=== PATIENT | female | born 1935 | race Caucasian/White ===

== ENCOUNTER 2018-10-04 08:51 | Inpatient (IN) | payer MEDICARE ==
[~2018-10-04] VITALS: Ht 160 cm; Wt 67.8 kg
[2018-10-04 13:40] VITALS: BP 140/82
--- NOTE | 2018-10-04 13:40 | NUR ---
AMADOU SAUL admitted to room 225-1, with an admitting diagnosis of REVISION OF LEFT TOTAL HIP BY DR. LI AT [facility], on 10/04/18 from [facility] via , accompanied by FAMILY. YURIANAAMADOU introduced to surroundings, call light, bed controls, phone, TV, temperature control, lights, meal times, smoking policy, visitor policy, side rail policy, bathrooms and showers. Patient Rights given to patient in the handbook. YURIANAAMADOU Dixon verbalizes understanding that [facility] is not responsible for the loss or damage to any personal effects or valuables that are kept in the patients posession during their hospitalization. The following Patient Care Plans were discussed with the PT: Discharge Planning AND IMMOBILITY. YURIANAAMADOU Dixon verbalizes understanding of Interdisciplinary Patient Education. Patient received Patient Rights Booklet, which includes Privacy Act Statement and Data Collection Information Summary. DENIES PAIN PRESENTLY. [employer] DRESSING DRY/INTACT LEFT HIP. DAUGHTER AT BEDSIDE. WHEN REPORT WAS GIVEN TO THIS NURSE, IT WAS REPORTED THAT PATIENT WAS UP AD CAROLINE. PATIENT HAD GONE HOME TO SHOWER PRIOR TO COMING TO [facility].
[2018-10-04] MEDS ORDERED: MELO-170 PO (14:04)
[2018-10-04] MEDS ORDERED: SIMV40TA4 PO (14:04)
[2018-10-04] MEDS ORDERED: POLY17PO6 PO (14:04)
[2018-10-04] MEDS ORDERED: TRAM50TA2 PO (14:04)
[2018-10-04] MEDS ORDERED: ATEN25TA PO (14:04)
[2018-10-04] MEDS ORDERED: ASPI-983 PO (14:04)
[2018-10-04] MEDS ORDERED: PANT40TA2 PO (14:04)
[2018-10-04] MEDS ORDERED: ALEN70TA5 PO (14:04)
[2018-10-04] MEDS ORDERED: ACET-2267 PO (14:05)
--- NOTE | 2018-10-04 14:06 | NUR ---
UPDATED MED REC WITH DISCHARGE INSTRUCTIONS FROM [facility]. THE FOLLOWING CHANGES WERE MADE AT THAT DISCHARGE: START TAKING: MOBIC 7.5MG BID TRAMADOL 50MG 50-100MG Q6H PRN PROTONIX 40MG DAILY I WILL UPDATE THE MED REC TO THE LIST OF MEDICATIONS THE PATIENT WAS TAKING AT HOME PRIOR TO THIS DISCHARGE AT A LATER DATE FOR PROPER DISCHARGE TO HOME ORDERS. Addendum: 10/07/18 at 0826 by [facility] D[facility] UPDATED MED REC TO THE LIST OF MEDICATIONS THE PATIENT WAS TAKING PRIOR TO DISCHARGE FROM [facility]. I REMOVED THE THREE NEW SCRIPTS= TRAMADOL, MOBIC, AND PROTONIX. I VERIFIED THE 3 PRESCRIPTIONS WITH THE EXT MED HX AND LEFT THE OTC CONTINUED MEDS: ASPIRIN, MIRALAX, AND TYLENOL.
--- NOTE | 2018-10-04 14:53 | Physical Therapy Evaluation ---
PT Evaluation-General Medical Diagnosis Admission Date Oct 04, 2018 at 13:37 Medical Diagnosis: left hip revision Onset Date: Oct 02, 2018 Therapy Diagnosis Therapy Diagnosis: debility/weakness Precautions Precautions/Isolations: Standard Precautions Weight Bear Status Right Lower Extremity: Right Full Weight Bearing Left Lower Extremity: Left Full Weight Bearing Referral Physician: Arlyn Reason for Referral: Evaluation/Treatment Medical History Pertinent Medical History: Arthritis Additional Medical History bilateral TKR/left THR/left TSR Current History s/p left hip revision Reviewed History: Yes Social History Home: Single Level Entry Into Home: Ramp Prior/Core FIM Prior Level of Function Therapy Code Descriptions/Definitions Functional [place] Measure: 0=Not Assessed/NA 4=Minimal Assistance 1=Total Assistance 5=Supervision or Setup 2=Maximal Assistance 6=Modified [place] 3=Moderate Assistance 7=Complete [place] Therapy Quality Codes: 6 Independent with activity with or without an assistive device 5 Patient requires set up or clean up by helper. Patient completes activity by themselves 4 Supervision or touching assist (CGA). [place] provide cues , steadying assist 3 The helper provides less than half the effort to complete the activity 2 The helper provides more than half the effort to complete the activity 1 Dependent. The helper does all the effort to complete an activity 7 Patient refused to complete or attempt activity 9 The patient did not perform the activity before the current illness or injury 88 Not attempted due to Medical conditions or safety concerns Functional Abilities and Goals: Independent: Patient completed the activities by him/herself, with or without an assistive device, with no assistance from a helper. Needed Some Help: Patient needed partial assistance from another person to complete activities. Dependent: A helper completed the activities for the patient. Unknown: Not Applicable: Bed Mobility: 7 Transfers (B,C,W/C) (FIM): 7 Gait: 7 Stairs: 7 Indoor Mobility (Ambulation): Independent Stairs: Independent Prior Devices Use: None PT Evaluation-Current Subjective Patient agrees to PT. No c/o Pain Numeric Pain Scale: 2 Location: Left Location Body Site: Hip Pain Description: Ache Objective Patient Orientation: Normal For Age Problem Solving: Good ROM/Strength ROM Lower Extremities left hip protocol/right LE WFL Strenght Lower Extremities 4-/5 grossly left LE/right LE 4+/5 grossly Integumentary/Posture Integumentary refer to nursing notes Bowel Incontinence: No Bladder Incontinence: No Posture WFL Neuromuscular (Tone, Coordination, Reflexes) grossly intact Sensory Vision: Wears Glasses Hearing: Hearing Aid/Aides Sensation Right Lower Extremit: Intact Sensation Left Lower Extremity: Intact Transfers Therapy Code Descriptions/Definitions Functional [place] Measure: 0=Not Assessed/NA 4=Minimal Assistance 1=Total Assistance 5=Supervision or Setup 2=Maximal Assistance 6=Modified [place] 3=Moderate Assistance 7=Complete [place] Therapy Quality Codes: 6 Independent with activity with or without an assistive device 5 Patient requires set up or clean up by helper. Patient completes activity by themselves 4 Supervision or touching assist (CGA). Kopperl provide cues , steadying assist 3 The helper provides less than half the effort to complete the activity 2 The helper provides more than half the effort to complete the activity 1 Dependent. The helper does all the effort to complete an activity 7 Patient refused to complete or attempt activity 9 The patient did not perform the activity before the current illness or injury 88 Not attempted due to Medical conditions or safety concerns Transfers (B, C, W/C) (FIM): 6 Scootin Rollin Roll Left to Right (QC): 6 Supine to/from Sit: 6 Sit to/from Stand: 6 Sit to Lying (QC): 6 Lying to Sitting/Side of Bed(Q: 6 Sit to Stand (QC): 6 Chair/Suo-gz-Fzixs Xfer(QC): 6 Car Transfer (QC): 6 Gait Does the Patient Walk?: Yes Mode of Locomotion: Walk Anticipated Mode of Locomotion: Walk Gait (FIM): 6 Distance (FIM): 3=150 ft Walk 10 feet (QC): 6 Walk 50 ft with 2 Turns(QC): 6 Walk 150 ft (QC): 6 Walking 10ft/uneven surface-QC: 6 Distance: >800' Gait Level of Assist: 6 Gait Assistive Device: FWW Comments/Gait Description steady, reciprocal pattern/slightly antalgic Stairs Stairs (FIM): 6 #of Steps: 12 Level of Assist: 6 1 Step (curb) (QC): 6 4 Steps (QC): 6 12 Steps (QC): 6 Balance Sitting Static: Normal Sitting Dynamic: Normal Standing Static: Normal Standing Dynamic: Normal Treatment NuStep x 20 min WL 3 to increase strength and mobility Assessment/Needs 82 y.o. female, is currently at [facility] with all gross motor skills. PT to address functional mobility and strength per physician order. Rehab Potential: Good PT Hardware Installer Goals Hardware Installer Goals PT Skilled Nursing Goals Time Frame: Oct 11, 2018 Transfers (B,C,W/C) (FIM): 6 Sit to Lying (QC): 6 Lying-Sitting on Side/Bed(QC): 6 Sit to Stand (QC): 6 Rollin Roll Left to Right (QC): 6 Chair/Icf-ai-Aswrk Xfer(QC): 6 Car Transfer (QC): 6 Does the Patient Walk: Yes Gait (FIM): 6 Gait distance (FIM): 3=150 ft Distance: >200' Walk 10 feet (QC): 6 Walk 10ft-Uneven Surface(QC): 6 Walk 50ft with 2 Turns (QC): 6 Walk 150 ft (QC): 6 Gait Level of Assist: 6 Gait Assistive Device: FWW Stairs (FIM): 6 # of Steps: 12 1 Step (curb) (QC): 6 4 Steps (QC): 6 12 Steps (QC): 6 Stairs Level Of Assist: 6 PT Plan Treatment/Plan Treatment Plan: Continue Plan of Care Treatment Plan: Education, Functional Activity Ney, Functional Strength, Gait, Safety, Therapeutic Exercise, Transfers Treatment Duration: Oct 11, 2018 Frequency: At least 5 of 7 days/Wk (IRF) Estimated Hrs Per Day: 1.5 hours per day Patient and/or Family Agrees t: Yes Discharge Recommendations Therapy D/C Recommendations: Home Independently Time/GCodes Time In: 1340 Time Out: 1415 Total Billed Treatment Time: 35 Total Billed Treatment 1 visit EVModC 15 min EX 20 min OG MENDOZA PT Oct 04, 2018 14:53
--- NOTE | 2018-10-04 15:11 | Physical Therapy Daily Note ---
PT Daily Note-Current Subjective Patient in therapy gym pre tx, agrees to PT, has 5/10 pain in left hip. Appearance Patient in recliner in room post tx with nurse call, phone, tray, all needs met. Mental Status Patient Orientation: Person, Place, Situation Transfers Therapy Code Descriptions/Definitions Functional [place] Measure: 0=Not Assessed/NA 4=Minimal Assistance 1=Total Assistance 5=Supervision or Setup 2=Maximal Assistance 6=Modified [place] 3=Moderate Assistance 7=Complete [place] Therapy Quality Codes: 6 Independent with activity with or without an assistive device 5 Patient requires set up or clean up by helper. Patient completes activity by themselves 4 Supervision or touching assist (CGA). [place] provide cues , steadying assist 3 The helper provides less than half the effort to complete the activity 2 The helper provides more than half the effort to complete the activity 1 Dependent. The helper does all the effort to complete an activity 7 Patient refused to complete or attempt activity 9 The patient did not perform the activity before the current illness or injury 88 Not attempted due to Medical conditions or safety concerns Transfers (B, C, W/C) (FIM): 6 Sit to/from Stand: 6 Bed to/from Chair: 6 Weight Bearing Right Lower Extremity: Right Full Weight Bearing Left Lower Extremity: Left Full Weight Bearing Gait Training Gait (FIM): 6 Distance: 150' Gait Level of Assist: 6 Gait Assistive Device: FWW slow but steady ambulation Exercises Supine Ex: Ankle pumps, Quad Set, Glut sets, Heel Slides, Short Arc Quads, Hip abd/add Supine Reps: 20 Seated Therapy Exercises: Hip abd/add (with pillow and RTB) Seated Reps: 20 LAQ alternating for 5 min Treatments LE exercise, ambulation Assessment Current Status: Fair Progress good general mobility PT Mcfp Goals Summer Camp Counselor Goals PT Summer Camp Counselor Goals Time Frame: Oct 11, 2018 Transfers (B,C,W/C) (FIM): 6 Sit to Lying (QC): 6 Lying-Sitting on Side/Bed(QC): 6 Sit to Stand (QC): 6 Rollin Roll Left to Right (QC): 6 Chair/Jnz-ja-Npwyz Xfer(QC): 6 Car Transfer (QC): 6 Does the Patient Walk: Yes Gait (FIM): 6 Gait distance (FIM): 3=150 ft Distance: >200' Walk 10 feet (QC): 6 Walk 10ft-Uneven Surface(QC): 6 Walk 50ft with 2 Turns (QC): 6 Walk 150 ft (QC): 6 Gait Level of Assist: 6 Gait Assistive Device: FWW Stairs (FIM): 6 # of Steps: 12 1 Step (curb) (QC): 6 4 Steps (QC): 6 12 Steps (QC): 6 Stairs Level Of Assist: 6 PT Plan Problem List Problem List: Activity Tolerance, Functional Strength, Safety, Balance, Gait, Transfer, ROM Treatment/Plan Treatment Plan: Continue Plan of Care Treatment Plan: Education, Functional Activity Ney, Functional Strength, Gai t, Safety, Therapeutic Exercise, Transfers Treatment Duration: Oct 11, 2018 Frequency: At least 5 of 7 days/Wk (IRF) Estimated Hrs Per Day: 1.5 hours per day Patient and/or Family Agrees t: Yes Safety Risks/Education Patient Education: Gait Training, Transfer Techniques, Reviewed Precautions, Correct Positioning, Safety Issues Teaching Recipient: Patient Teaching Methods: Demonstration, Discussion Response to Teaching: Reinforcement Needed Time/GCodes Time In: 1415 Time Out: 1440 Total Billed Treatment Time: 25 Total Billed Treatment 1 visit EX 25' JIM BOLANOS PT Oct 04, 2018 15:11
--- NOTE | 2018-10-04 15:14 | ST Cognitive Linguistic Eval ---
Speech Evaluation-General Medical Diagnosis left hip revision Onset Date: Oct 02, 2018 Therapy Diagnosis Therapy Diagnosis: cognitive impairment Precautions Precautions/Isolations: Standard Precautions Medical History Pertinent Medical History: Arthritis Reviewed History: Yes Speech PLF-Current Status Language Eval: Auditory Comprehends Simple Yes/No Ques: Functional Follows 1-Step Commands: Functional Follows Complex Directions: Functional Follows General Conversations: Functional Language Eval: Verbal Language Completes Spontaneous Greeting: Functional Word Finding: Functional States Basic Personal Info: Functional Expresses Complex Ideas: Functional Cognitive Patient Orientation oriented to day, year, and place Objective Cognitive Domain Attention: WNL Memory: Mild Problem Solving: Functional Executive Functions: WNL Visuospatial Skills: WNL Composite Severity Rating: WNL Clock Drawing Severity Rating: WNL Objective Formal/Standardized Tests Patient was given the [facility] Mental Status (UMS) Examination and scored 26/30 indicating mild-WNL cognitive skills. Mild deficits were in memory. Patient expressed she had difficulty hearing and required repetition for questions often. Hearing loss may have impacted score Results Patient demonstrated some difficulty with memory tasks, but was successful with minimal verbal cues Oral Motor/Speech Production oral motor and speech skills WNL Impression Patient presents with functional cognitive skills and speech services are not recommended at this time Communication/Social Cognition Comprehension: 7 Expression: 7 Social Interaction: 7 Problem Solvin Memory: 6 Speech Patient Assess Expression of Ideas/Wants: Expression (4) Understanding Verbal Content: Understands (4) Brief Interview-Mental Status: Yes Temporal Orientation: Year: Correct (3) Temporal Orientation: Day: Correct (1) Memory/Recall Ability: That he or she is in a hsp/hsp unit Speech-Plan Patient/Family Goals Patient/Family Goals: Patient hopes to become stronger and return to home upon d/c to continue taking care of her son Treatment Plan Speech Therapy Treatment Plan: Discontinue ST (WNL cognition) Patient presents with mild memory deficits, but is successful with minimal verbal cues. Overall cognition is WNL and speech services are not recommended at this time Treatment Duration: Oct 18, 2018 Frequency: 1 time per week Estimated Hrs Per Day: .25 hour per day Rehab Potential: Good Barriers to Learning: no barriers are indicated at this time Pt/Family Agrees to Plan: Yes Safety Risks/Education Teaching Recipient: Patient Teaching Methods: Discussion Response to Teaching: Verbalize Understanding Education Topics Provided: scope of speech services and cognition post surgery Time Speech Therapy Time In: 14:40 Speech Therapy Time Out: 14:55 Total Billed Time: 15 Billed Treatment Time 1, SPSNDHARVEY [place] Oct 04, 2018 15:14
--- NOTE | 2018-10-04 15:26 | Occupational Therapy Eval ---
OT Evaluation-General/PLF Medical Diagnosis Admission Date Oct 04, 2018 at 13:37 Medical Diagnosis: left hip revision Onset Date: Oct 02, 2018 Therapy Diagnosis Therapy Diagnosis: impaired ADLs and mobility Precautions Precautions/Isolations: Fall Prevention, Standard Precautions Weight Bear Status Weight Bearing Restriction: Weight Bearing/Tolerated Referral Physician: Arlyn Referral Reason: Activity Tolerance, Self Care, Evaluation/Treatment, Strengthening/ROM Medical History Pertinent Medical History: Arthritis Reviewed History: Yes Social History Home: Single Level Current Living Status: Alone Entry Into Home: Ramp ADL-Prior Level of Function Therapy Code Descriptions/Definitions Functional [place] Measure: 0=Not Assessed/NA 4=Minimal Assistance 1=Total Assistance 5=Supervision or Setup 2=Maximal Assistance 6=Modified [place] 3=Moderate Assistance 7=Complete [place] Therapy Quality Codes: 6 Independent with activity with or without an assistive device 5 Patient requires set up or clean up by helper. Patient completes activity by themselves 4 Supervision or touching assist (CGA). [place] provide cues , steadying assist 3 The helper provides less than half the effort to complete the activity 2 The helper provides more than half the effort to complete the activity 1 Dependent. The helper does all the effort to complete an activity 7 Patient refused to complete or attempt activity 9 The patient did not perform the activity before the current illness or injury 88 Not attempted due to Medical conditions or safety concerns Functional Abilities and Goals: Independent: Patient completed the activities by him/herself, with or without an assistive device, with no assistance from a helper. Needed Some Help: Patient needed partial assistance from another person to complete activities. Dependent: A helper completed the activities for the patient. Unknown: Not Applicable: ADL PLOF Comments independent PLOF using no AD. 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 pt stated son lives at long term but stays weekends at her house and she has to left him/ take care of all his needs as he is dep. 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 pt agreed to OT evaluation/ TX session. pt complain of 5/10 Left hip pain. NSG is aware pt stated prior to arriving to inpt rehab she stopped at home and took shower. per pt report her daughter assist ed her with washing her feet ad dressing her Left side of lower body. 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 pt stated she needs a right total shoulder dalila UE WFL Upper Extremity Coordination opposition WNL finger to nose test: WFL Upper Extremity Sensation WNL Upper Extremity Strength 4-/5 MMT Edema: Dalila LE ADL-Treatment Eating (FIM): 7 Eating (QC): 6 Grooming (FIM): 5 (standign at sink, comb hair, brush teeth) Oral Hygiene (QC): 4 Bathing (FIM): 4 Bathing Location: L Arm, R Arm, L Upper Leg, R Upper Leg, Chest, Abdomen, Buttocks, Perineal Area Shower/Bathe Self (QC): 3 Upper Body Dressing (FIM): 5 (hand assembler for puller over shirt ) Upper Body Dressing (QC): 5 Lower Body Dressing (FIM): 3 (dalila shooes, dalila sochs, underpants, pants. pt required assist to thread LLE and assist to arabella L sock and shoe ) Lower Body Dressing (QC): 2 On/Off Footwear (QC): 3 Toileting (FIM): 5 Toileting Hygiene (QC): 5 Transfers (B, C, W/C) (FIM): 5 (use OF RW ) Toilet/Commode Transfer (FIM): 5 (use OF RW ) Toilet Transfer (QC): 4 Shower Transfer (FIM): 5 (use OF RW, use of GB ) pt education on use of AE (sock aid, cctv technician, dressing stick, shoe horn). pt demo ability to arabella/ arabella Dalila socks using AE and thread dalila LE through pants with use of AE and SBA. Other Treatments post ADLs pt perform UBE 5 minutes X3 forward with MIN resistance forward. noted rest break for 1 minute between sets. pt education on use of cctv technician. 9 items laced on floor around pt. pt demo ability to pick and shovel man all 9 items while seated. pt then demo ability to pick and shovel man items while standing with SBA for safety/ balance. pt transition into PT care post OT Session. all needs met. Education OT Patient Education: Modified ADL techniques, Progress toward Goal/Update tx plan, Purpose of tx/functional activities, Reviewed precautions, Rehab process, Safety issues, Transfer techniques, Use of adapted equipment Teaching Recipient: Patient Teaching Methods: Demonstration, Discussion Response to Teaching: Verbalize Understanding, Return Demonstration OT Short Term Goals Short Term Goals Time Frame: Oct 11, 2018 Bathing(FIM): 5 Lower Body Dressing(FIM): 5 Additional Short Term Goals: 1-Demonstrate ADL Tasks, 2-Verbalize Understanding, 3-ImproveStrength/Ney 1=Demonstrate adherence to instructed precautions during ADL tasks. 2=Patient will verbalize/demonstrate understanding of assistive afshan elizabet/modifications for ADL. 3=Patient will improve strength/tolerance for activity to enable patient to perform ADL's. OT Doorkeeper Goals Detention Goals Time Frame: Oct 18, 2018 Eating (FIM): 7 Eating (QC): 6 Groomin Oral Hygiene (QC): 6 Bathing(FIM): 6 Bathing Location: L Arm, R Arm, L Upper Leg, R Upper Leg, L Lower Leg (inclu ding foot), R Lower Leg (including foot), Chest, Abdomen, Buttocks, Perineal Area Shower/Bathe Self (QC): 6 Upper Body Dressing(FIM): 6 Upper Body Dressing (QC): 6 Lower Body Dressing(FIM): 6 Lower Body Dressing (QC): 6 On/Off Footwear (QC): 6 Toileting(FIM): 6 Toileting Hygiene (QC): 6 Transfers (B,C,W/C) (FIM): 6 Toilet/Commode Transfer(FIM): 6 Toilet/Commode Transfer (QC): 6 Shower Transfer(FIM): 6 Additional Goals: 1-Demonstrate ADL Tasks, 2-Verbalize Understanding, 3-Impro veStrength/Ney 1=Demonstrate adherence to instructed precautions during ADL tasks. 2=Patient will verbalize/demonstrate understanding of assistive devices/modifications for ADL. 3=Patient will improve strength/tolerance for activity to enable patient to perform ADL's. OT Education/Plan Problem List/Assessment Assessment: Decreased UE Strength, Edema, Impaired Funct Balance, Impaired I ADL's, Impaired Self-Care Skills Discharge Recommendations Plan/Recommendations: Continue POC Target Placement home Patient/Family Goals "to be able to build my strength to task care of my son" Treatment Plan/Plan of Care Treatment,Training & Education: Yes Patient would benefit from OT for education, treatment and training to promote independence in ADL's, mobility, safety and/or upper extremity function for ADL's. Plan of Care: ADL Retraining, Caregiver Training, Concurrent Therapy, Functional Mobility, Group Exercise/Act as Ind, UE Funct Exercise/Act Treatment Duration: Oct 18, 2018 Frequency: At least 5 of 7 days/Wk (IRF) Estimated Hrs Per Day: 1 hour per day (60-90 minutes per day ) Agreement: Yes Rehab Potential: Good Time/GCodes Start Time: 14:55 Stop Time: 13:25 Billed Treatment Time EVM 15 Minutes ADL 45 minutes, 3 units FA 30 minutes, 2 unit TRELL VARGAS OT Oct 04, 2018 15:26
--- NOTE | 2018-10-04 16:41 | Physical Therapy Daily Note ---
PT Daily Note-Current Subjective Patient reports fatigue, however, agrees to PT. Pain Numeric Pain Scale: 5-Moderate Pain Location: Left Location Body Site: Hip Pain Description: Acute Mental Status Patient Orientation: Normal For Age Transfers Therapy Code Descriptions/Definitions Functional [place] Measure: 0=Not Assessed/NA 4=Minimal Assistance 1=Total Assistance 5=Supervision or Setup 2=Maximal Assistance 6=Modified [place] 3=Moderate Assistance 7=Complete [place] Therapy Quality Codes: 6 Independent with activity with or without an assistive device 5 Patient requires set up or clean up by helper. Patient completes activity by themselves 4 Supervision or touching assist (CGA). [place] provide cues , steadying assist 3 The helper provides less than half the effort to complete the activity 2 The helper provides more than half the effort to complete the activity 1 Dependent. The helper does all the effort to complete an activity 7 Patient refused to complete or attempt activity 9 The patient did not perform the activity before the current illness or injury 88 Not attempted due to Medical conditions or safety concerns Transfers (B, C, W/C) (FIM): 6 Scootin Sit to/from Stand: 6 Sit to Stand (QC): 6 Weight Bearing Right Lower Extremity: Right Full Weight Bearing Left Lower Extremity: Left Full Weight Bearing Gait Training Does the Patient Walk?: Yes Gait (FIM): 6 Distance (FIM): 3=150 ft Distance: 200' Walk 10 feet (QC): 6 Walk 50 ft with 2 Turns(QC): 6 Walk 150 ft (QC): 6 Gait Level of Assist: 6 Gait Assistive Device: FWW reciprocal pattern, functional gait sequence Exercises Seated Therapy Exercises: Ankle pumps, Long arc quads Seated Reps: 15 Assessment Patient tolerated treatment well and is in recliner with ice pack in place on left hip. PT Contract Post Office Clerk Goals Contract Post Office Clerk Goals PT Contract Post Office Clerk Goals Time Frame: Oct 11, 2018 Transfers (B,C,W/C) (FIM): 6 Sit to Lying (QC): 6 Lying-Sitting on Side/Bed(QC): 6 Sit to Stand (QC): 6 Rollin Roll Left to Right (QC): 6 Chair/Ubr-wc-Hvrxn Xfer(QC): 6 Car Transfer (QC): 6 Does the Patient Walk: Yes Gait (FIM): 6 Gait distance (FIM): 3=150 ft Distance: >200' Walk 10 feet (QC): 6 Walk 10ft-Uneven Surface(QC): 6 Walk 50ft with 2 Turns (QC): 6 Walk 150 ft (QC): 6 Gait Level of Assist: 6 Gait Assistive Device: FWW Stairs (FIM): 6 # of Steps: 12 1 Step (curb) (QC): 6 4 Steps (QC): 6 12 Steps (QC): 6 Stairs Level Of Assist: 6 PT Plan Treatment/Plan Treatment Plan: Continue Plan of Care Treatment Plan: Education, Functional Activity Ney, Functional Strength, Gait, Safety, Therapeutic Exercise, Transfers Treatment Duration: Oct 11, 2018 Frequency: At least 5 of 7 days/Wk (IRF) Estimated Hrs Per Day: 1.5 hours per day Patient and/or Family Agrees t: Yes Time/GCodes Time In: 1625 Time Out: 1640 Total Billed Treatment Time: 15 Total Billed Treatment 1 visit FA 15 min OG MENDOZA PT Oct 04, 2018 16:41
[2018-10-04] MEDS ORDERED: NON-FORMULARY MEDICATION 1 EA EA (Acetaminophen (Tylenol Extra Strength) 1,000 MG) PO PRN (16:45)
[2018-10-04] MEDS ORDERED: NON-FORMULARY MEDICATION 1 EA EA (Polyethylene Glycol 3350 (Miralax) 17 GM) PO PRN (16:45)
[2018-10-04] MEDS ORDERED: NON-FORMULARY MEDICATION 1 EA EA (Alendronate Sodium 70 MG) PO SCH (16:45)
--- NOTE | 2018-10-04 16:55 | PM&R H&P / Post Admit Assess ---
History of Present Illness HPI/Chief Complaint CC: Debility following left hip revision replacement POD # 2 HPI: This is an 82yoWF who presents following an uncomplicated left hip replacement revision at [facility] on Sunday. Dental Detail Representative is Dr Kennedy and she was just told last week her aortic stenosis progressed from mild to moderate in severity. and She had a bit of a slow recovery due to labile HTN and then orthostasis causing slowed PT progress yesterday but since that time her BP has become stable and she has had no other near syncopal episodes and has had a BM this morning and is urinating well. She is using IS. 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 She has h/o valvular heart disease and denies any chest pain or dyspnea. She is a retired RN at [employer]. Source: patient Exam Limitations: no limitations Date Seen 10/04/18 Time Seen by a Provider: 16:40 Attending Physician Yareli Stoddard Diana K Pa Referring Physician Date of Admission Oct 04, 2018 at 13:37 Home Medications & Allergies Home Medications Reviewed patient Home Medication Reconciliation performed by pharmacy medication reconciliations collections technician and/or nursing. Patients Allergies have been reviewed. Allergies Allergies Coded Allergies No Known Drug Allergies (Unverified10/04/18) Past Bhfzxim-Stpfye-Fnkppm Hx Past Med/Social Hx: Reviewed Nursing Past Med/Soc Hx, Reviewed and Corrections made Patient Social History Marrital Status: Employed/Student: retired Smoking Status: Never a Smoker Recent Foreign Travel: No Contact w/other who traveled: No Recent Infectious Disease Expo: No Immunizations Up To Date Date of Pneumonia Vaccine: Jan 04, 2018 Past Medical History Surgeries: Coronary Stent, Hysterectomy, Orthopedic, Pacemaker, Valve Replacement Cardiac: Coronary Artery Disease, Heart Murmur, High Cholesterol, Hypertension, Valvular Heart Disease Neurological: Neuropathy Gastrointestinal: Irritable Bowel Musculoskeletal: Osteoporosis, Arthritis thyroid nodule Family History Diabetes mellitus G8 BROTHER FH: lung cancer 19 MOTHER Review of Systems Constitutional: see HPI, malaise, weakness EENTM: no symptoms reported Respiratory: no symptoms reported Cardiovascular: no symptoms reported, edema Gastrointestinal: no symptoms reported Genitourinary: no symptoms reported Musculoskeletal: joint pain (left hip) Psychiatric/Neurological: Anxiety, Depressed All Other Systems Reviewed Negative Unless Noted: Yes Physical Exam Exam Vital Signs Vital Signs Date Time Temp Pulse Resp B/P (MAP) Pulse Ox O2 Delivery O2 Flow Rate FiO2 10/04/18 13:40 97.5 71 20 140/82 (101) 99 Room Air Capillary Refill : General Appearance: No Apparent Distress, WD/WN, Chronically ill HEENT: PERRL/EOMI, Normal ENT Inspection, Pharynx Normal, Moist Mucous Membranes Neck: Full Range of Motion, Normal Inspection, Non Tender, Supple Respiratory: Chest Non Tender, Lungs Clear, Normal Breath Sounds, No Accessory Muscle Use, No Respiratory Distress Cardiovascular: Regular Rate, Rhythm, No Gallop, No JVD, Systolic Murmur Gastrointestinal: Normal Bowel Sounds, No Organomegaly, No Pulsatile Mass, Non Tender, Soft Back: Normal Inspection, No CVA Tenderness, No Vertebral Tenderness Extremity: Normal Capillary Refill, Normal Inspection, Normal Range of Motion (except left leg from post op status), Non Tender, No Calf Tenderness, Pedal Edema (trace) Neurologic/Psychiatric: Alert, Oriented x3, No Motor/Sensory Deficits, Normal Mood/Affect, five roll refiner batch mixer II-XII Norm as Tested Skin: Normal Color, Warm/Dry Lymphatic: No Adenopathy Results Results/Procedures Labs Patient resulted labs reviewed. Assessment/Plan Assessment and Plan Assess & Plan/Chief Complaint Assessment: s/p left hip replacement revision POD # 2 Subtle lower leg edema Post op orthostasis causing slow recovery HTN HLP CAD Aortic stenosis moderate OA Neuropathy Angina Thyroid nodule Plan: Monitor pain Reconciled all home meds ASA for DVT PPx per ortho Monitor cardiac status (1) History of left hip replacement (2) Left hip pain (3) CAD (coronary artery disease) (4) Aortic stenosis (5) Pacemaker (6) Mitral valve replaced (7) Hyperlipidemia (8) IBS (irritable bowel syndrome) (9) Osteoarthritis (10) History of coronary artery stent placement (11) Osteoporosis (12) Neuropathy (13) Orthostasis (14) Angina pectoris (15) GERD (gastroesophageal reflux disease) Post Admission Physician Asses Date seen by provider: Oct 04, 2018 Time seen by provider: 16:40 Admisison Dx: (1) History of left hip replacement Status: Acute The preadmission screen agrees with the post admission assessment that the patient is a good candidate for inpatient rehabilitation. The patient will have a comprehensive program of inpatient rehabilitation with a goal of maximizing level of functional independence prior to discharge home with family. The patient will have PT/OT ninety minutes per day, each discipline, five days a week for gait, strengthening, conditioning, balance, ADLs, any patient/family/caregiver training as necessary. Speech therapy to do cognitive assessment and treat as indicated. Rehabilitation nursing to assist with bowel, bladder, skin, wound care, medication administration, pain management. Media Coordinator to assist with discharge planning, community reentry. SCD's for DVT prophylaxis. She appears to be well motivated to participate in three hours of therapy a day. She should be able to tolerate three hours of therapy a day from a medical standpoint. She should benefit from the three hours of therapy a day. She has a reasonable discharge plan, reasonable discharge rehabilitation goals and a supportive family. She has various comorbidities that need to be closely monitored with medications and treatments adjusted on a daily basis as needed. These include: see list Barriers to discharge for this patient who had been independent prior to this are for her to be modified independent to supervision for ADLs and mobility skills prior to discharge home with family, so as to lessen the burden of the caregivers. Risks for this patient include: 1. Fall 2. Fracture 3. DVT 4. Pulmonary embolism 5. Wound infection 6. Skin breakdown 7. Contractures 8. Poorly controlled pain 9. Urinary retention 10. UTI 11. Respiratory infection 12. Aspiration Estimated Length of Stay: 7 days Prognosis: Rehab prognosis appears good for goal of discharge home with family modified independent to supervision for ADLs and mobility skills. YARELI STODDARD DO Oct 04, 2018 16:55
[2018-10-04] MEDS ORDERED: MELATONIN 3 MG TABLET PO PRN (17:00)
[2018-10-04] MEDS ORDERED: LOPERAMIDE 2 MG (IMODIUM) TABLET PO PRN (17:00)
[2018-10-04] MEDS ORDERED: ONDANSETRON 4 MG (ZOFRAN) ORAL DISSOLVE TAB PO PRN (17:00)
[2018-10-04] MEDS ORDERED: diphenhydrAMINE 25 MG TAB (BENADRYL) PO PRN (17:00)
[2018-10-04] MEDS ORDERED: DOCUSATE SODIUM 100 MG (COLACE) CAP PO PRN (17:00)
[2018-10-04] MEDS ORDERED: CALCIUM CARBONATE 500 MG (TUMS) TAB.CHEW PO PRN (17:00)
--- NOTE | 2018-10-04 17:05 | Individualized Plan of Care ---
Individualized Plan of Care Rehab Nursing IPOC Order Admission Date Oct 04, 2018 at 13:37 Current Orders Orders Admission Order(Inpt,Obs,Sdc) (10/04/18 09:35) Vital Signs: Per Unit Policy ( ,16,00 (10/04/18 09:35) Mines Inspector-Inpt Rehab Con (10/04/18 09:35) Rehab Nursing Orders-Ipoc (10/04/18 09:35) Physical Therapy Rehab Orders (10/04/18 09:35) Occupational Therapy Rehab Ord (10/04/18 09:35) Speech Therapy Rehab Orders (10/04/18 09:35) General/Regular (10/04/18 Lunch) Intake & Output 06,14,22 (10/04/18 09:35) Precautions (Aru) (10/04/18 09:35) Weekly Weight (Lbs) WEEK (10/04/18 09:35) Rehab-Intensity Of Therapy (10/04/18 09:35) Initiate Admission Nursing Pro .admission (10/04/18 09:35) Cbc With Automated Diff (10/05/18 06:00) Comprehensive Metabolic Panel (10/05/18 06:00) Patient Visit (10/04/18 ) Pt Eval Moderate Complexity (10/04/18 ) Exercise Therap, Ea 15 Min (10/04/18 ) Advanced Wound Care Dressing O UD (10/04/18 14:30) Follow-Up Appointment (10/04/18 14:30) Patient Visit (10/04/18 ) Exercise Therap, Ea 15 Min (10/04/18 ) Exercise Therap, Ea 15 Min (10/04/18 ) Patient Visit (10/04/18 ) Speech Sound Lang Comp (10/04/18 ) Aspirin Enteric Coated Tablet (Ecotrin T (10/05/18 09:00) Atenolol Tablet (Tenormin Tablet) (10/04/18 21:00) Pantoprazole Tablet (Protonix Tablet) (10/05/18 07:00) Simvastatin Tablet (Zocor Tablet) (10/04/18 21:00) Tramadol Tablet (Ultram Tablet) (10/04/18 16:45) (Nf) Acetaminophen (Tylenol Extra Streng (10/04/18 16:45) (Nf) Alendronate Sodium (10/04/18 16:45) (Nf) Meloxicam (Mobic) (10/04/18 21:00) (Nf) Polyethylene Glycol 3350 (Miralax) (10/04/18 16:45) Patient Visit (10/04/18 ) Functional Activities, Ea 15 (10/04/18 ) Calcium Carbonate Chew Tablet (Antacid C (10/04/18 17:00) Diphenhydramine Tablet (Benadryl Tablet) (10/04/18 17:00) Docusate Sodium Capsule (Colace Capsule) (10/04/18 17:00) Loperamide Tablet (Imodium Tablet) (10/04/18 17:00) Melatonin Tablet (Melatonin Tablet) (10/04/18 17:00) Ondansetron Oral Dissolve Tab (Zofran (10/04/18 17:00) Senna S Tablet (Senokot S Tablet) (10/04/18 21:00) Ambulate 08,12,20 (10/04/18 16:58) Sequential Compression Device 08,20 (10/04/18 16:58) Dvt/Vte Risk - Notifiy Physici 08 (10/04/18 16:58) Acetaminophen Tablet (Tylenol Tablet) (10/04/18 17:15) Meloxicam Tablet (Mobic Tablet) (10/04/18 21:00) Polyethylene Glycol Powder Pkt (Miralax (10/04/18 17:15) Rehab Nursing Orders: Ongoing Assess. of Cognitive Status, Ongoing Assess. of Function Status, Bowel Management, Disease Management & Educaiton, DVT Prophy laxis, Fall Prevention, Fluid/Electrolyte/Nutrition Mgmt, Infection Prevention, Medication Management & Education, Management of Risks & Complications, Management of Skin Intergrity, Nutrition Management, Pain Management, Patient/Family Support, Safety Management Intensity of Therapy to be met Patient to be seen: Min.3h per day/5 of 7d PT IPOC Problem List: Activity Tolerance, Functional Strength, Safety, Balance, Gait, Transfer, ROM Treatment Plan: Continue Plan of Care Education, Functional Activity Ney, Functional Strength, Gait, Safety, T herapeutic Exercise, Transfers Treatment Duration: Oct 11, 2018 Frequency: At least 5 of 7 days/Wk (IRF) Estimated Hrs Per Day: 1.5 hours per day OT IPOC Problems: Decreased UE Strength, Edema, Impaired Funct Balance, Impaired I ADL's, Impaired Self-Care Skills OT Treatment, Training and Edu: Yes Plan of Care: ADL Retraining, Caregiver Training, Concurrent Therapy, Functional Mobility, Group Exercise/Act as Ind, UE Funct Exercise/Act Treatment Duration: Oct 18, 2018 Frequency: At least 5 of 7 days/Wk (IRF) Estimated Hrs Per Day: 1 hour per day (60-90 minutes per day ) ST IPOC Speech Therapy Treatment Plan: Discontinue ST (WNL cognition) Treatment Duration: Oct 18, 2018 Frequency: 1 time per week Estimated Hrs Per Day: .25 hour per day Mines Inspector/Case Mgmt Mines Inspector/Case Managemen: Discharge Planning Dietitian/Tank Officer Dietitian/Tank Officer to monitor nutritional status and make changes and/or recommendations as needed and work with speech pathology on dietary upgrades as the occur. Physician IPOC Medical Issues being managed closely and that require the 24 hour availability of a physician: Extensive CAD and valvular disease with recent progression of aortic stenosis to moderate from mild with mild post op edema and recent orthostasis with labile HTN will need close monitoring Medical Issues: Bowel/Bladder Function, DVT Prophylaxis, Falls Precautions, Fluid/Electrolyte/Nutrition Balance, Infection Protection, Pain Management Brief Synthesis of Preadmission Screen, Post-Admission Evaluation, and Therapy Evaluations: PT will focus on ambulation with new revision left hip OT will increase ADL independence ST will monitor cognition Medical Prognosis: Good Anticipated Length of Stay: 7 days VANE KRISHNA DO Oct 04, 2018 17:05
[2018-10-04] MEDS ORDERED: POLYETHYLENE GLYCOL 17 GM (MIRALAX) PACK PO PRN (17:15)
[2018-10-04 17:34] VITALS: BP 154/88
--- NOTE | 2018-10-04 19:21 | NUR ---
bedside report received from GRAY ZHANG, assume care of pt
[2018-10-04 20:50] VITALS: BP 143/81
--- NOTE | 2018-10-04 20:50 | NUR ---
assessments & interventions completed, see assessments & interventions, up with 1 person standverena assist & walker
[2018-10-04] MEDS: SIMvastatin 40 MG (ZOCOR) TAB PO SCH (20:53)
[2018-10-04] MEDS: ATENOLOL 25 MG (TENORMIN) TAB PO SCH (20:53)
[2018-10-04] MEDS: MELOXICAM 7.5 MG (MOBIC) TABLET PO SCH (20:54)
--- NOTE | 2018-10-04 20:54 | NUR ---
c/o pain to lt hip level 5/10 on numeric scale, scheduled Mobic 7.5 & Ultram 100mg given
[2018-10-04] MEDS: SENNA W/DOCUSATE (SENOKOT S) TABLET PO SCH (20:55)
[2018-10-04] MEDS ORDERED: NON-FORMULARY MEDICATION 1 EA EA (Meloxicam (Mobic) 7.5 MG) PO SCH (21:00)
--- NOTE | 2018-10-04 21:40 | NUR ---
rates pain at 2/10 on numeric scale
[2018-10-05 05:09] LABS: BASOPHILS % (AUTO) 0 % (0-10); EOSINOPHILS # (AUTO) 0.4 10^3/uL (0.0-0.3); EOSINOPHILS % (AUTO) 4 % (0-10); HEMATOCRIT 29 % (35-52); HEMOGLOBIN 9.3 G/DL (11.5-16.0); LYMPHOCYTES # (AUTO) 1.4 X 10^3 (1.0-4.0); LYMPHOCYTES % (AUTO) 15 % (12-44); MEAN CORPUSCULAR HEMOGLOBIN 29 PG (25-34); MEAN CORPUSCULAR HGB CONC 32 G/DL (32-36); MEAN CORPUSCULAR VOLUME 89 FL (80-99); MEAN PLATELET VOLUME 10.2 FL (7.4-10.4); MONOCYTES # (AUTO) 0.8 X 10^3 (0.0-1.0); MONOCYTES % (AUTO) 9 % (0-12); NEUTROPHILS # (AUTO) 6.8 X 10^3 (1.8-7.8); NEUTROPHILS % (AUTO) 72 % (42-75); PLATELET COUNT 164 10^3/uL (130-400); RED CELL DISTRIBUTION WIDTH 14.3 % (10.0-14.5); WHITE BLOOD COUNT 9.4 10^3/uL (4.3-11.0)
[2018-10-05 05:17] VITALS: BP 134/80
[2018-10-05 05:27] LABS: ALANINE AMINOTRANSFERASE 6 U/L (0-55); ALBUMIN 3.2 GM/DL (3.2-4.5); ALKALINE PHOSPHATASE 50 U/L (40-136); BILIRUBIN,TOTAL 0.4 MG/DL (0.1-1.0); BUN/CREATININE RATIO 22; CALCIUM 8.3 MG/DL (8.5-10.1); CARBON DIOXIDE 26 MMOL/L (21-32); CHLORIDE 102 MMOL/L (98-107); CREATININE SERUM 0.78 MG/DL (0.60-1.30); GFR ESTIMATED > 60; GLUCOSE 87 MG/DL (70-105); POTASSIUM 4.4 MMOL/L (3.6-5.0); SODIUM 135 MMOL/L (135-145); TOTAL PROTEIN 5.7 GM/DL (6.4-8.2)
--- NOTE | 2018-10-05 07:22 | NUR ---
bedside report given to GRAY ZHANG
[2018-10-05] MEDS: PANTOPRAZOLE 40 MG (PROTONIX) TAB PO SCH (07:25)
[2018-10-05 08:00] VITALS: BP 147/79
--- NOTE | 2018-10-05 08:00 | NUR ---
BP STABLE. STILL HAVING LEFT HIP PAIN FROM THERAPY YESTERDAY. MEDICATED WITH TYLENOL. LOWER EXTREMITY EDEMA IMPROVED. IRVIN PAGE ON. PER OG PT - PATIENT CAN BE UP AD CAROLINE. PATIENT REQUESTS TO WAIT UNTIL THIS EVENING TO SHOWER.
[2018-10-05] MEDS: ACETAMINOPHEN 500 MG TAB (TYLENOL) PO PRN ×2 (08:19→17:30)
[2018-10-05] MEDS: ATENOLOL 25 MG (TENORMIN) TAB PO SCH ×2 (08:19→20:33)
[2018-10-05] MEDS: MELOXICAM 7.5 MG (MOBIC) TABLET PO SCH ×2 (08:19→20:33)
[2018-10-05] MEDS: SENNA W/DOCUSATE (SENOKOT S) TABLET PO SCH ×2 (08:21→20:34)
[2018-10-05] MEDS: ASPIRIN E.C. 81 MG (ECOTRIN) TAB PO SCH (08:23)
--- NOTE | 2018-10-05 10:32 | Physical Therapy Daily Note ---
PT Daily Note-Current Subjective Patient agrees to PT. She c/o "soreness" left hip due to exercises. Mental Status Patient Orientation: Normal For Age Transfers Therapy Code Descriptions/Definitions Functional [place] Measure: 0=Not Assessed/NA 4=Minimal Assistance 1=Total Assistance 5=Supervision or Setup 2=Maximal Assistance 6=Modified [place] 3=Moderate Assistance 7=Complete [place] Therapy Quality Codes: 6 Independent with activity with or without an assistive device 5 Patient requires set up or clean up by helper. Patient completes activity by themselves 4 Supervision or touching assist (CGA). [place] provide cues , steadying assist 3 The helper provides less than half the effort to complete the activity 2 The helper provides more than half the effort to complete the activity 1 Dependent. The helper does all the effort to complete an activity 7 Patient refused to complete or attempt activity 9 The patient did not perform the activity before the current illness or injury 88 Not attempted due to Medical conditions or safety concerns Transfers (B, C, W/C) (FIM): 6 Scootin Sit to/from Stand: 6 Sit to Stand (QC): 6 Car Transfer (QC): 6 Weight Bearing Right Lower Extremity: Right Full Weight Bearing Left Lower Extremity: Left Full Weight Bearing Gait Training Does the Patient Walk?: Yes Gait (FIM): 6 Distance (FIM): 3=150 ft Distance: 150' x 2 Walk 10 feet (QC): 6 Walk 50 ft with 2 Turns(QC): 6 Walk 150 ft (QC): 6 Gait Level of Assist: 6 Gait Assistive Device: FWW patient is up ad laurent in hallway PRN/steady functional gait sequence Exercises Seated Therapy Exercises: Ankle pumps, Long arc quads Seated Reps: 15 NuStep Minutes: 15 NuStep Workload: 3 (to improve strength and mobility) Assessment Patient progressing with treatment plan. She remains up in recliner with ice pack on left hip for comfort. PT Intermediate Goals Arboriculturist Goals PT Intermediate Goals Time Frame: Oct 11, 2018 Transfers (B,C,W/C) (FIM): 6 Sit to Lying (QC): 6 Lying-Sitting on Side/Bed(QC): 6 Sit to Stand (QC): 6 Rollin Roll Left to Right (QC): 6 Chair/Hyz-rz-Qjtoc Xfer(QC): 6 Car Transfer (QC): 6 Does the Patient Walk: Yes Gait (FIM): 6 Gait distance (FIM): 3=150 ft Distance: >200' Walk 10 feet (QC): 6 Walk 10ft-Uneven Surface(QC): 6 Walk 50ft with 2 Turns (QC): 6 Walk 150 ft (QC): 6 Gait Level of Assist: 6 Gait Assistive Device: FWW Stairs (FIM): 6 # of Steps: 12 1 Step (curb) (QC): 6 4 Steps (QC): 6 12 Steps (QC): 6 Stairs Level Of Assist: 6 PT Plan Treatment/Plan Treatment Plan: Continue Plan of Care Treatment Plan: Education, Functional Activity Ney, Functional Strength, Gait, Safety, Therapeutic Exercise, Transfers Treatment Duration: Oct 11, 2018 Frequency: At least 5 of 7 days/Wk (IRF) Estimated Hrs Per Day: 1.5 hours per day Patient and/or Family Agrees t: Yes Time/GCodes Time In: 1000 Time Out: 1023 Total Billed Treatment Time: 23 Total Billed Treatment 1 visit EX x 2 23 min OG MENDOZA PT Oct 05, 2018 10:32
--- NOTE | 2018-10-05 10:46 | PM&R Progress Note ---
Subjective HPI/CC On Admission Date Seen by Provider: Oct 05, 2018 Time Seen by Provider: 10:30 CC: Debility following left hip revision replacement POD # 2 HPI: This is an 82yoWF who presents following an uncomplicated left hip replacement revision at [facility] on Sunday. It Security Consulting Director is Dr Kennedy and she was just told last week her aortic stenosis progressed from mild to moderate in severity. and She had a bit of a slow recovery due to labile HTN and then orthostasis causing slowed PT progress yesterday but since that time her BP has become stable and she has had no other near syncopal episodes and has had a BM this morning and is urinating well. She is using IS. 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 She has h/o valvular heart disease and denies any chest pain or dyspnea. She is a retired RN at [employer]. Subjective/Events-last exam DVT prophylaxis at 81 mg of aspirin a day Ultram is taken for the pain Up ad laurent. in the room since she is doing very well Hemoglobin remained stable at 9.3 Using incentive spirometer Overall dramatically improving from the orthostatic hypotension and labile hypertension she had in [place] caused slow recovery Check meds and labs Conferred with RN Reviewed therapy notes Review of Systems General: Fatigue, Malaise Musculoskeletal: leg pain Objective Exam Vital Signs Vital Signs Date Time Temp Pulse Resp B/P (MAP) Pulse Ox O2 Delivery O2 Flow Rate FiO2 10/06/18 09:00 Room Air 10/06/18 05:03 98.8 68 16 154/71 (98) 97 Capillary Refill : General Appearance: No Apparent Distress, WD/WN, Chronically ill HEENT: PERRL/EOMI, Normal ENT Inspection, Pharynx Normal, Moist Mucous Membranes Neck: Full Range of Motion, Normal Inspection, Non Tender, Supple Respiratory: Chest Non Tender, Lungs Clear, Normal Breath Sounds, No Accessory Muscle Use, No Respiratory Distress Cardiovascular: Regular Rate, Rhythm, No Gallop, No JVD, Systolic Murmur Gastrointestinal: Normal Bowel Sounds, No Organomegaly, No Pulsatile Mass, Non Tender, Soft Back: Normal Inspection, No CVA Tenderness, No Vertebral Tenderness Extremity: Normal Capillary Refill, Normal Inspection, Normal Range of Motion (except left leg from post op status), Non Tender, No Calf Tenderness, Pedal Edema (trace) Neurologic/Psychiatric: Alert, Oriented x3, No Motor/Sensory Deficits, Normal Mood/Affect, draughtsman II-XII Norm as Tested Skin: Normal Color, Warm/Dry Lymphatic: No Adenopathy Results/Procedures Lab Patient resulted labs reviewed. FIM Transfers Therapy Code Descriptions/Definitions Functional [place] Measure: 0=Not Assessed/NA 4=Minimal Assistance 1=Total Assistance 5=Supervision or Setup 2=Maximal Assistance 6=Modified [place] 3=Moderate Assistance 7=Complete [place] Therapy Quality Codes: 6 Independent with activity with or without an assistive device 5 Patient requires set up or clean up by helper. Patient completes activity by themselves 4 Supervision or touching assist (CGA). [place] provide cues , steadying assist 3 The helper provides less than half the effort to complete the activity 2 The helper provides more than half the effort to complete the activity 1 Dependent. The helper does all the effort to complete an activity 7 Patient refused to complete or attempt activity 9 The patient did not perform the activity before the current illness or injury 88 Not attempted due to Medical conditions or safety concerns Transfers (B, C, W/C) (FIM): 6 Scootin Rollin Roll Left to Right (QC): 6 Supine to/from Sit: 6 Sit to/from Stand: 6 Sit to Lying (QC): 6 Sit to Stand (QC): 6 Chair/Hwk-lx-Uemku Xfer(QC): 6 Bed to/from Chair: 6 Car Transfer (QC): 6 Gait Training Does the Patient Walk?: Yes Gait (FIM): 6 Distance (FIM): 3=150 ft Distance: 150' x 2 Walk 10 feet (QC): 6 Walk 50 ft with 2 Turns(QC): 6 Walk 150 ft (QC): 6 Walking 10ft/uneven surface-QC: 6 Gait Level of Assist: 6 Gait Assistive Device: FWW Stair Training Stairs (FIM): 6 #of Steps: 12 1 Step (curb) (QC): 6 4 Steps (QC): 6 12 Steps (QC): 6 Level of Assist: 6 Mental Status/Objective Comprehension: 6 Expression: 7 Social Interaction: 7 Problem Solvin Memory: 7 ADL-Treatment Feedin Eating (QC): 6 Groomin (standign at sink, comb hair, brush teeth) Oral Hygiene (QC): 4 Bathin Bathing Location: L Arm, R Arm, L Upper Leg, R Upper Leg, Chest, Abdomen, Buttocks, Perineal Area Shower/Bathe Self (QC): 3 Upper Extremity Dressin (dust puller shirt ) Upper Body Dressing (QC): 5 Lower Extremity Dressin (dalila shooes, dalila sochs, underpants, pants. pt required assist to thread LLE and assist to arabella L sock and shoe ) Lower Body Dressing (QC): 2 On/Off Footwear (QC): 3 Toiletin Toileting Hygiene (QC): 5 Toilet/Commode Transfer: 5 (use OF RW ) Toilet Transfer (QC): 4 Shower: 5 (use OF RW, use of GB ) Assessment/Plan Assessment and Plan Assess & Plan/Chief Complaint Assessment: s/p left hip replacement revision POD # 3 Subtle lower leg edema Post op orthostasis causing slow recovery now resolved HTN HLP CAD Aortic stenosis moderate OA Neuropathy Angina Thyroid nodule Plan: Monitor pain Reconciled all home meds ASA for DVT PPx per ortho Monitor cardiac status Ultram for pain (1) History of left hip replacement (2) Osteoporosis (3) Aortic stenosis (4) CAD (coronary artery disease) (5) Hyperlipidemia (6) Osteoarthritis (7) Neuropathy (8) Angina pectoris (9) Pacemaker (10) IBS (irritable bowel syndrome) (11) Orthostasis (12) Left hip pain (13) GERD (gastroesophageal reflux disease) (14) Mitral valve replaced (15) History of coronary artery stent placement VANE KRISHNA DO Oct 05, 2018 10:46
[2018-10-05 17:10] VITALS: BP 151/80
--- NOTE | 2018-10-05 17:30 | NUR ---
MEDICATED WITH TYLENOL FOR LEFT HIP "ACHINESS". WAS NAUSEATED EARLIER, BUT NAPPED MOST OF AFTERNOON AND FEELING BETTER NOW. NO NAUSEA NOW, "JUST NO APPETITE".
--- NOTE | 2018-10-05 19:13 | NUR ---
bedside report received from GRAY ZHANG, assume care of pt
[2018-10-05] MEDS: SIMvastatin 40 MG (ZOCOR) TAB PO SCH (20:33)
--- NOTE | 2018-10-05 20:51 | NUR ---
assessments & interventions completed, see assessments & interventions, pt refused Senokot but wanted miralax instead up with walker & standby assist
[2018-10-06 05:03] VITALS: BP 154/71
[2018-10-06] MEDS: ACETAMINOPHEN 500 MG TAB (TYLENOL) PO PRN (06:23)
[2018-10-06] MEDS: PANTOPRAZOLE 40 MG (PROTONIX) TAB PO SCH (06:23)
--- NOTE | 2018-10-06 06:23 | NUR ---
c/o lt hip pain level 6/10 on numeric scale, Tylenol 1000mg po given
--- NOTE | 2018-10-06 07:07 | NUR ---
up ambulating in [place] states pain level 5/10 on numeric scale
--- NOTE | 2018-10-06 07:10 | NUR ---
bedside report given to GRAY ZHANG
[2018-10-06 08:00] VITALS: BP 113/69
--- NOTE | 2018-10-06 08:50 | NUR ---
COMPLAINS OF ACHINESS ALL OVER, ESPECIALLY LEFT HIP. AGREED TO TRYING ULTRAM. EDEMA IMPROVED IN LOWER EXTREMITIES. REFUSED IRVIN HOSE, BUT AGREEABLE TO KEEPING LEGS ELEVATED TODAY. REQUESTING MORE MIRALAX AND ORDER CHANGED TO BID PRN.
[2018-10-06] MEDS: ASPIRIN E.C. 81 MG (ECOTRIN) TAB PO SCH (08:52)
[2018-10-06] MEDS: MELOXICAM 7.5 MG (MOBIC) TABLET PO SCH ×2 (08:52→20:50)
[2018-10-06] MEDS: ATENOLOL 25 MG (TENORMIN) TAB PO SCH ×2 (08:52→20:49)
[2018-10-06] MEDS: POLYETHYLENE GLYCOL 17 GM (MIRALAX) PACK PO PRN ×2 (08:54→20:53)
--- NOTE | 2018-10-06 13:00 | NUR ---
STATES GOOD RELIEF OF PAIN WITH ULTRAM AND WISHES WOULD OF TAKEN IT SOONER NOW. HAS BEEN UP IN [place] MULTIPLE TIMES TODAY WITH WALKER AND TOLERATING WELL. FAMILY VISITED.
--- NOTE | 2018-10-06 14:12 | PM&R Progress Note ---
Subjective HPI/CC On Admission Date Seen by Provider: Oct 06, 2018 Time Seen by Provider: 12:15 CC: Debility following left hip revision replacement POD # 2 HPI: This is an 82yoWF who presents following an uncomplicated left hip replacement revision at [facility] on Sunday. Junior [employer] Principal is Dr Kennedy and she was just told last week her aortic stenosis progressed from mild to moderate in severity. and She had a bit of a slow recovery due to labile HTN and then orthostasis causing slowed PT progress yesterday but since that time her BP has become stable and she has had no other near syncopal episodes and has had a BM this morning and is urinating well. She is using IS. 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 She has h/o valvular heart disease and denies any chest pain or dyspnea. She is a retired RN at [employer]. Subjective/Events-last exam Patient moving around pretty well Overall having some aches and pains and that because the nausea Ultram given with good relief Eating and drinking well Bowels are moving Blood pressure remained stable without any additional intervention Reviewed therapy notes Conferred with RN Check meds and labs Review of Systems Gastrointestinal: Nausea Musculoskeletal: leg pain Objective Exam Vital Signs Vital Signs Date Time Temp Pulse Resp B/P (MAP) Pulse Ox O2 Delivery O2 Flow Rate FiO2 10/06/18 09:00 Room Air 10/06/18 05:03 98.8 68 16 154/71 (98) 97 Capillary Refill : General Appearance: No Apparent Distress, WD/WN, Chronically ill HEENT: PERRL/EOMI, Normal ENT Inspection, Pharynx Normal, Moist Mucous Membranes Neck: Full Range of Motion, Normal Inspection, Non Tender, Supple Respiratory: Chest Non Tender, Lungs Clear, Normal Breath Sounds, No Accessory Muscle Use, No Respiratory Distress Cardiovascular: Regular Rate, Rhythm, No Gallop, No JVD, Systolic Murmur Gastrointestinal: Normal Bowel Sounds, No Organomegaly, No Pulsatile Mass, Non Tender, Soft Back: Normal Inspection, No CVA Tenderness, No Vertebral Tenderness Extremity: Normal Capillary Refill, Normal Inspection, Normal Range of Motion (except left leg from post op status), Non Tender, No Calf Tenderness, Pedal Edema (trace) Neurologic/Psychiatric: Alert, Oriented x3, No Motor/Sensory Deficits, Normal Mood/Affect, relations director II-XII Norm as Tested Skin: Normal Color, Warm/Dry Lymphatic: No Adenopathy Results/Procedures Lab Patient resulted labs reviewed. FIM Transfers Therapy Code Descriptions/Definitions Functional [place] Measure: 0=Not Assessed/NA 4=Minimal Assistance 1=Total Assistance 5=Supervision or Setup 2=Maximal Assistance 6=Modified [place] 3=Moderate Assistance 7=Complete [place] Therapy Quality Codes: 6 Independent with activity with or without an assistive device 5 Patient requires set up or clean up by helper. Patient completes activity by themselves 4 Supervision or touching assist (CGA). [place] provide cues , steadying assist 3 The helper provides less than half the effort to complete the activity 2 The helper provides more than half the effort to complete the activity 1 Dependent. The helper does all the effort to complete an activity 7 Patient refused to complete or attempt activity 9 The patient did not perform the activity before the current illness or injury 88 Not attempted due to Medical conditions or safety concerns Transfers (B, C, W/C) (FIM): 6 Scootin Rollin Roll Left to Right (QC): 6 Supine to/from Sit: 6 Sit to/from Stand: 6 Sit to Lying (QC): 6 Sit to Stand (QC): 6 Chair/Ocf-lb-Zwgns Xfer(QC): 6 Bed to/from Chair: 6 Car Transfer (QC): 6 Gait Training Does the Patient Walk?: Yes Gait (FIM): 6 Distance (FIM): 3=150 ft Distance: 150' x 2 Walk 10 feet (QC): 6 Walk 50 ft with 2 Turns(QC): 6 Walk 150 ft (QC): 6 Walking 10ft/uneven surface-QC: 6 Gait Level of Assist: 6 Gait Assistive Device: FWW Stair Training Stairs (FIM): 6 #of Steps: 12 1 Step (curb) (QC): 6 4 Steps (QC): 6 12 Steps (QC): 6 Level of Assist: 6 Mental Status/Objective Comprehension: 6 Expression: 7 Social Interaction: 7 Problem Solvin Memory: 7 ADL-Treatment Feedin Eating (QC): 6 Groomin (standign at sink, comb hair, brush teeth) Oral Hygiene (QC): 4 Bathin Bathing Location: L Arm, R Arm, L Upper Leg, R Upper Leg, Chest, Abdomen, Buttocks, Perineal Area Shower/Bathe Self (QC): 3 Upper Extremity Dressin (caul fat puller shirt ) Upper Body Dressing (QC): 5 Lower Extremity Dressin (dalila shooes, dalila sochs, underpants, pants. pt required assist to thread LLE and assist to arabella L sock and shoe ) Lower Body Dressing (QC): 2 On/Off Footwear (QC): 3 Toiletin Toileting Hygiene (QC): 5 Toilet/Commode Transfer: 5 (use OF RW ) Toilet Transfer (QC): 4 Shower: 5 (use OF RW, use of GB ) Assessment/Plan Assessment and Plan Assess & Plan/Chief Complaint Assessment: s/p left hip replacement revision POD # 4 Subtle lower leg edema Post op orthostasis causing slow recovery HTN HLP CAD Aortic stenosis moderate OA Neuropathy Angina Thyroid nodule Nausea Plan: Monitor pain Reconciled all home meds ASA for DVT PPx per ortho Monitor cardiac status Monitor nausea (1) History of left hip replacement (2) Osteoporosis (3) Aortic stenosis (4) CAD (coronary artery disease) (5) Hyperlipidemia (6) Osteoarthritis (7) Neuropathy (8) Angina pectoris (9) Pacemaker (10) IBS (irritable bowel syndrome) (11) Orthostasis (12) Left hip pain (13) GERD (gastroesophageal reflux disease) (14) Mitral valve replaced (15) History of coronary artery stent placement VANE KRISHNA DO Oct 06, 2018 14:12
[2018-10-06 17:15] VITALS: BP 143/79
--- NOTE | 2018-10-06 18:25 | NUR ---
bedside report received from GRAY ZHANG, assume care of pt
[2018-10-06 20:45] VITALS: BP 160/88
--- NOTE | 2018-10-06 20:48 | NUR ---
assessments & interventions completed, see assessments & interventions c/o lt hip pain level 5/10 on numeric scale, Ultram 100mg given
[2018-10-06] MEDS: SIMvastatin 40 MG (ZOCOR) TAB PO SCH (20:49)
--- NOTE | 2018-10-06 21:18 | NUR ---
bedside report given to KLAUS ZHANG Addendum: 10/06/18 at 2209 by PEREZ GONZALEZ RN not floating until 0000
--- NOTE | 2018-10-06 21:25 | NUR ---
resting quietly in bed, pain level 0/10 on flacc scale
[2018-10-07 05:55] VITALS: BP 158/78
[2018-10-07] MEDS: PANTOPRAZOLE 40 MG (PROTONIX) TAB PO SCH (06:47)
--- NOTE | 2018-10-07 07:35 | NUR ---
bedside report given to ERIC ZHANG
--- NOTE | 2018-10-07 09:03 | Physical Therapy Daily Note ---
PT Daily Note-Current Subjective Pt. agrees to Rx, states she had an issue of extreme nausea earlier today and is jsut now getting better. States she also had brief dizziness with it. Agrees to Rx. Pain Location: No Pain Reported Mental Status Patient Orientation: Normal For Age Transfers Therapy Code Descriptions/Definitions Functional [place] Measure: 0=Not Assessed/NA 4=Minimal Assistance 1=Total Assistance 5=Supervision or Setup 2=Maximal Assistance 6=Modified [place] 3=Moderate Assistance 7=Complete [place] Therapy Quality Codes: 6 Independent with activity with or without an assistive device 5 Patient requires set up or clean up by helper. Patient completes activity by themselves 4 Supervision or touching assist (CGA). [place] provide cues , steadying assist 3 The helper provides less than half the effort to complete the activity 2 The helper provides more than half the effort to complete the activity 1 Dependent. The helper does all the effort to complete an activity 7 Patient refused to complete or attempt activity 9 The patient did not perform the activity before the current illness or inju ry 88 Not attempted due to Medical conditions or safety concerns Transfers (B, C, W/C) (FIM): 7 Scootin Rollin Supine to/from Sit: 7 Sit to/from Stand: 7 Bed to/from Chair: 7 Car Transfer (QC): 6 pt. is up ad laurent, noted safety and good habits Weight Bearing Right Lower Extremity: Right Full Weight Bearing Left Lower Extremity: Left Full Weight Bearing Gait Training Does the Patient Walk?: Yes Gait (FIM): 6 Distance (FIM): 3=150 ft (250ft) Gait Level of Assist: 6 Gait Persons Needed: 0 Gait Assistive Device: FWW pt. up ad laurent with FWW, began SPC education this date, pt. quickly picked up on proper sequence and had noted safety Stair Training Stair Training: Handrails/: 1 handrail Stairs (FIM): 5 #of Steps: 4 Stairs: Pattern: Step to Level of Assist: 5 household exception Exercises Supine Ex: Ankle pumps, Quad Set, Rolling, Glut sets, Heel Slides, Short Arc Quads, Scooting, Straight leg raise (x5 LLE), Hip abd/add Standing: Hip Abduction, Hamstring curls, Heel/toe raises, Marching, Mini squats, Sit to Stand Standing Reps: 12 NuStep Minutes: 10 NuStep Workload: 3 Assessment Current Status: Excellent Progress great progress, planning for DC wed PT Detention Goals Detention Goals PT Clinical Exercise Specialist Goals Time Frame: Oct 11, 2018 Transfers (B,C,W/C) (FIM): 6 Sit to Lying (QC): 6 Lying-Sitting on Side/Bed(QC): 6 Sit to Stand (QC): 6 Rollin Roll Left to Right (QC): 6 Chair/Rrh-qn-Bgwii Xfer(QC): 6 Car Transfer (QC): 6 Does the Patient Walk: Yes Gait (FIM): 6 Gait distance (FIM): 3=150 ft Distance: >200' Walk 10 feet (QC): 6 Walk 10ft-Uneven Surface(QC): 6 Walk 50ft with 2 Turns (QC): 6 Walk 150 ft (QC): 6 Gait Level of Assist: 6 Gait Assistive Device: FWW Stairs (FIM): 6 # of Steps: 12 1 Step (curb) (QC): 6 4 Steps (QC): 6 12 Steps (QC): 6 Stairs Level Of Assist: 6 PT Plan Treatment/Plan Treatment Plan: Continue Plan of Care Treatment Plan: Education, Functional Activity Ney, Functional Strength, Gait, Safety, Therapeutic Exercise, Transfers Treatment Duration: Oct 11, 2018 Frequency: At least 5 of 7 days/Wk (IRF) Estimated Hrs Per Day: 1.5 hours per day Patient and/or Family Agrees t: Yes Safety Risks/Education Patient Education: Gait Training, Transfer Techniques, Steps, Correct Positioning, Disease Process, Safety Issues Teaching Recipient: Patient Teaching Methods: Demonstration, Discussion Response to Teaching: Verbalize Understanding, Return Demonstration, Reinforcement Needed Time/GCodes Time In: 800 Time Out: 900 Total Billed Treatment Time: 60 Total Billed Treatment 1,EX25m,FA15m,GT20m G Codes Necessary: WARD Fuentes PHP [employer] DEVELOPER Oct 07, 2018 09:03
--- NOTE | 2018-10-07 09:41 | NUR ---
MANAGER READING met with patient to complete initial assessment, patient was alert and oriented 4 and agreeable to assessment. Prior to current hospitalization, patient and adult disabled son resided in [place], [place]. Patient admitted to ARU from [facility] with debility following L SHANNA revision by Dr. Mccallum. 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 She required no DME, but does have a FWW from previous hip replacement in 2006. Patient identifies primary contacts as daughter, Alise ([phone]) and secondary contact as son, [place] of [place]. MANAGER READING verified PCP as Dr. Renee Lawson and frame expander as Dr. Cowan of [facility]. Patient has Medicare and Blue Cross supplement with Silver Script prescription coverage. Preferred pharmacy as [facility]. MANAGER READING reviewed typical rehabilitation length of stay and weekly team conferences with patient; however, patient admitted at a high functional level and Team has already recommended discharge for 10/09. MANAGER READING will follow for appropriate discharge needs
--- NOTE | 2018-10-07 09:52 | NUR ---
Pt doesn't want to take her scheduled 0900 meds yet d/t nausea, took Zofran. Pt relates the nausea to taking 2 Ultram's on an empty stomach, & that she thinks her bowels probably need to move more than they did last night. Working w OT in gym now, offered crackers/Sprite, pt declined. Provided cool wet washcloth.
--- NOTE | 2018-10-07 10:30 | Occupational Ther Daily Note ---
OT Current Status-Daily Note Subjective pt laying in bed upon OT arrival. pt reports nausea and dizziness this date. pt vitals taken laying BP 163/92, seated 145/83, standing 132/85. NSG is aware of pt BP. NSG stated pt may participate on OT TX session. pt agreed to OT TX session. pt reports 2/10 left hip pain. Mental Status/Objective Patient Orientation: Normal For Age Therapy Code Descriptions/Definitions Functional [place] Measure: 0=Not Assessed/NA 4=Minimal Assistance 1=Total Assistance 5=Supervision or Setup 2=Maximal Assistance 6=Modified [place] 3=Moderate Assistance 7=Complete [place] ADL-Treatment Therapy Code Descriptions/Definitions Functional [place] Measure: 0=Not Assessed/NA 4=Minimal Assistance 1=Total Assistance 5=Supervision or Setup 2=Maximal Assistance 6=Modified [place] 3=Moderate Assistance 7=Complete [place] Therapy Quality Codes: 6 Independent with activity with or without an assistive device 5 Patient requires set up or clean up by helper. Patient completes activity by themselves 4 Supervision or touching assist (CGA). [place] provide cues , steadying assist 3 The helper provides less than half the effort to complete the activity 2 The helper provides more than half the effort to complete the activity 1 Dependent. The helper does all the effort to complete an activity 7 Patient refused to complete or attempt activity 9 The patient did not perform the activity before the current illness or injury 88 Not attempted due to Medical conditions or safety concerns Grooming (FIM): 5 (set up to wash face while seated EOB ) Lower Body Dressing (FIM): 5 (dalila shoes and socks ) Transfers (B, C, W/C) (FIM): 5 (use of RW) Other Treatment noted increase rest breaks throughout session secondary to nausea. pt ambulated to tx gym with SPV using RW 90 ft and perform UBE 5 minutes forward with min resistanceX3 to increase activity tolerance for daily activities. pt then given 2# wrist wights and participated in table top game to increase UE strength and activity tolerance. pt transported back to room via w/c and transferred from w/c to bed with SBA to lay down secondary to increase nausea. NSG present in room. energy conservation gone over while pt laying down. pt able to stated understanding of conversation and provided examples of how to incorporate trained techniques into everyday task, pt laying in bed post OT session, sri light within reach, all needs met. Education OT Patient Education: Energy conservation, Modified ADL techniques, Progress toward Goal/Update tx plan, Purpose of tx/functional activities, Reviewed precautions, Rehab process, Safety issues, Transfer techniques Teaching Recipient: Patient Teaching Methods: Demonstration, Discussion Response to Teaching: Verbalize Understanding, Return Demonstration OT Short Term Goals Short Term Goals Time Frame: Oct 11, 2018 Bathing(FIM): 5 Lower Body Dressing(FIM): 5 Additional Short Term Goals: 1-Demonstrate ADL Tasks, 2-Verbalize Un derstanding, 3-ImproveStrength/Ney 1=Demonstrate adherence to instructed precautions during ADL tasks. 2=Patient will verbalize/demonstrate understanding of assistive devices/modifications for ADL. 3=Patient will improve strength/tolerance for activity to enable patient to perform ADL's. OT Spanish Linguist Goals Usp Goals Time Frame: Oct 18, 2018 Eating (FIM): 7 Eating (QC): 6 Groomin Oral Hygiene (QC): 6 Bathing(FIM): 6 Bathing Location: L Arm, R Arm, L Upper Leg, R Upper Leg, L Lower Leg (including foot), R Lower Leg (including foot), Chest, Abdomen, Buttocks, Perineal Area Shower/Bathe Self (QC): 6 Upper Body Dressing(FIM): 6 Upper Body Dressing (QC): 6 Lower Body Dressing(FIM): 6 Lower Body Dressing (QC): 6 On/Off Footwear (QC): 6 Toileting(FIM): 6 Toileting Hygiene (QC): 6 Transfers (B,C,W/C) (FIM): 6 Toilet/Commode Transfer(FIM): 6 Toilet/Commode Transfer (QC): 6 Shower Transfer(FIM): 6 Additional Goals: 1-Demonstrate ADL Tasks, 2-Verbalize Understanding, 3- ImproveStrength/Ney 1=Demonstrate adherence to instructed precautions during ADL tasks. 2=Patient will verbalize/demonstrate understanding of assistive devices/modifications for ADL. 3=Patient will improve strength/tolerance for activity to enable patient to perform ADL's. OT Education/Plan Discharge Recommendations Plan/Recommendations: Continue POC Barriers to Progress nausea Treatment Plan/Plan of Care Treatment,Training & Education: Yes Patient would benefit from OT for education, treatment and training to promote independence in ADL's, mobility, safety and/or upper extremity function for ADL's. Plan of Care: ADL Retraining, Caregiver Training, Concurrent Therapy, Functional Mobility, Group Exercise/Act as Ind, UE Funct Exercise/Act Treatment Duration: Oct 18, 2018 Frequency: At least 5 of 7 days/Wk (IRF) Estimated Hrs Per Day: 1 hour per day (60-90 minutes per day ) Agreement: Yes Rehab Potential: Good Time/GCodes Start Time: 09:30 Stop Time: 11:00 Billed Treatment Time ADL 30 minutes, 2 units FA 60 minutes, 4 units TRELL VARGAS OT Oct 07, 2018 10:30
--- NOTE | 2018-10-07 10:53 | PM&R Progress Note ---
Subjective HPI/CC On Admission Date Seen by Provider: Oct 07, 2018 Time Seen by Provider: 09:00 CC: Debility following left hip revision replacement POD # 2 HPI: This is an 82yoWF who presents following an uncomplicated left hip replacement revision at [facility] on Sunday. Contact Acid Plant Operator is Dr Kennedy and she was just told last week her aortic stenosis progressed from mild to moderate in severity. and She had a bit of a slow recovery due to labile HTN and then orthostasis causing slowed PT progress yesterday but since that time her BP has become stable and she has had no other near syncopal episodes and has had a BM this morning and is urinating well. She is using IS. 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 She has h/o valvular heart disease and denies any chest pain or dyspnea. She is a retired RN at [employer]. Subjective/Events-last exam Nausea this morning, may be due to Ultram . Needs to have a BM but she did have a small one yesterday. Ultram is being taken on an empty stomach and we are wondering if we need to address that. Short stay is expected as long as she continues to progress with PT. Conferred with RN. Checked meds and labs. Reviewed therapy notes. Review of Systems Gastrointestinal: Nausea Musculoskeletal: leg pain Objective Exam Vital Signs Vital Signs Date Time Temp Pulse Resp B/P (MAP) Pulse Ox O2 Delivery O2 Flow Rate FiO2 10/07/18 18:44 98.4 66 20 121/77 (92) 98 Room Air Capillary Refill : General Appearance: No Apparent Distress, WD/WN, Chronically ill HEENT: PERRL/EOMI, Normal ENT Inspection, Pharynx Normal, Moist Mucous Membranes Neck: Full Range of Motion, Normal Inspection, Non Tender, Supple Respiratory: Chest Non Tender, Lungs Clear, Normal Breath Sounds, No Accessory Muscle Use, No Respiratory Distress Cardiovascular: Regular Rate, Rhythm, No Gallop, No JVD, Systolic Murmur Gastrointestinal: Normal Bowel Sounds, No Organomegaly, No Pulsatile Mass, Non Tender, Soft Back: Normal Inspection, No CVA Tenderness, No Vertebral Tenderness Extremity: Normal Capillary Refill, Normal Inspection, Normal Range of Motion (except left leg from post op status), Non Tender, No Calf Tenderness, Pedal Edema (trace) Neurologic/Psychiatric: Alert, Oriented x3, No Motor/Sensory Deficits, Normal Mood/Affect, orchestra director II-XII Norm as Tested Skin: Normal Color, Warm/Dry Lymphatic: No Adenopathy Results/Procedures Lab Patient resulted labs reviewed. FIM Transfers Therapy Code Descriptions/Definitions Functional [place] Measure: 0=Not Assessed/NA 4=Minimal Assistance 1=Total Assistance 5=Supervision or Setup 2=Maximal Assistance 6=Modified [place] 3=Moderate Assistance 7=Complete [place] Therapy Quality Codes: 6 Independent with activity with or without an assistive device 5 Patient requires set up or clean up by helper. Patient completes activity by themselves 4 Supervision or touching assist (CGA). [place] provide cues , steadying assist 3 The helper provides less than half the effort to complete the activity 2 The helper provides more than half the effort to complete the activity 1 Dependent. The helper does all the effort to complete an activity 7 Patient refused to complete or attempt activity 9 The patient did not perform the activity before the current illness or injury 88 Not attempted due to Medical conditions or safety concerns Transfers (B, C, W/C) (FIM): 5 (use of RW) Scootin Rollin Roll Left to Right (QC): 6 Supine to/from Sit: 7 Sit to/from Stand: 7 Sit to Lying (QC): 6 Sit to Stand (QC): 6 Chair/Uff-jf-Opuvx Xfer(QC): 6 Bed to/from Chair: 7 Car Transfer (QC): 6 Gait Training Does the Patient Walk?: Yes Gait (FIM): 6 Distance (FIM): 3=150 ft (250ft) Distance: 150' x 2 Walk 10 feet (QC): 6 Walk 50 ft with 2 Turns(QC): 6 Walk 150 ft (QC): 6 Walking 10ft/uneven surface-QC: 6 Gait Level of Assist: 6 Gait Persons Needed: 0 Gait Assistive Device: FWW Stair Training Stair Training: Handrails/: 1 handrail Stairs (FIM): 5 #of Steps: 4 1 Step (curb) (QC): 6 4 Steps (QC): 6 12 Steps (QC): 6 Stairs: Pattern: Step to Level of Assist: 5 Mental Status/Objective Comprehension: 6 Expression: 7 Social Interaction: 7 Problem Solvin Memory: 7 ADL-Treatment Feedin Eating (QC): 6 Groomin (standign at sink, comb hair, brush teeth) Oral Hygiene (QC): 4 Bathin Bathing Location: L Arm, R Arm, L Upper Leg, R Upper Leg, Chest, Abdomen, But tocks, Perineal Area Shower/Bathe Self (QC): 3 Upper Extremity Dressin (tie puller shirt ) Upper Body Dressing (QC): 5 Lower Extremity Dressin (dalila shoes and socks ) Lower Body Dressing (QC): 2 On/Off Footwear (QC): 3 Toiletin Toileting Hygiene (QC): 5 Toilet/Commode Transfer: 5 (use OF RW ) Toilet Transfer (QC): 4 Shower: 5 (use OF RW, use of GB ) Assessment/Plan Assessment and Plan Assess & Plan/Chief Complaint Assessment: s/p left hip replacement revision POD # 5 Subtle lower leg edema Post op orthostasis causing slow recovery HTN HLP CAD Aortic stenosis moderate OA Neuropathy Angina Thyroid nodule Nausea Plan: Monitor pain Reconciled all home meds ASA for DVT PPx per ortho Monitor cardiac status Monitor nausea (1) History of left hip replacement (2) Osteoporosis (3) Aortic stenosis (4) CAD (coronary artery disease) (5) Hyperlipidemia (6) Osteoarthritis (7) Neuropathy (8) Angina pectoris (9) Pacemaker (10) IBS (irritable bowel syndrome) (11) Orthostasis (12) Left hip pain (13) GERD (gastroesophageal reflux disease) (14) Mitral valve replaced (15) History of coronary artery stent placement VANE KRISHNA DO Oct 07, 2018 10:53
--- NOTE | 2018-10-07 13:37 | Physical Therapy Daily Note ---
PT Daily Note-Current Subjective Pt. agrees to Rx. States she is feeling so much better now. Relieved of the nausea she was having this morning. States she feels more comfortable using the FWW but agrees to usig the cane during therapies Pain Location: No Pain Reported Mental Status Patient Orientation: Normal For Age Transfers Therapy Code Descriptions/Definitions Functional [place] Measure: 0=Not Assessed/NA 4=Minimal Assistance 1=Total Assistance 5=Supervision or Setup 2=Maximal Assistance 6=Modified [place] 3=Moderate Assistance 7=Complete [place] Therapy Quality Codes: 6 Independent with activity with or without an assistive device 5 Patient requires set up or clean up by helper. Patient completes activity by themselves 4 Supervision or touching assist (CGA). [place] provide cues , steadying assist 3 The helper provides less than half the effort to complete the activity 2 The helper provides more than half the effort to complete the activity 1 Dependent. The helper does all the effort to complete an activity 7 Patient refused to complete or attempt activity 9 The patient did not perform the activity before the current illness or injury 88 Not attempted due to Medical conditions or safety concerns all TRFs mod I Weight Bearing Right Lower Extremity: Right Full Weight Bearing Left Lower Extremity: Left Full Weight Bearing Gait Training Does the Patient Walk?: Yes Gait Assistive Device: Cane Single Point 250,275 SBA, good sequence , instructed and tactile cues for swing in LUE Exercises Supine Ex: Ankle pumps, Quad Set, Heel Slides, Short Arc Quads, Straight leg raise (L x 5 ), Hip abd/add Supine Reps: 15 NuStep Minutes: 10 NuStep Workload: 3 Assessment Current Status: Good Progress PT Half-Way Goals Half-Way Goals PT Diamond Blender Goals Time Frame: Oct 11, 2018 Transfers (B,C,W/C) (FIM): 6 Sit to Lying (QC): 6 Lying-Sitting on Side/Bed(QC): 6 Sit to Stand (QC): 6 Rollin Roll Left to Right (QC): 6 Chair/Are-qv-Ovxya Xfer(QC): 6 Car Transfer (QC): 6 Does the Patient Walk: Yes Gait (FIM): 6 Gait distance (FIM): 3=150 ft Distance: >200' Walk 10 feet (QC): 6 Walk 10ft-Uneven Surface(QC): 6 Walk 50ft with 2 Turns (QC): 6 Walk 150 ft (QC): 6 Gait Level of Assist: 6 Gait Assistive Device: FWW Stairs (FIM): 6 # of Steps: 12 1 Step (curb) (QC): 6 4 Steps (QC): 6 12 Steps (QC): 6 Stairs Level Of Assist: 6 PT Plan Treatment/Plan Treatment Plan: Continue Plan of Care Treatment Plan: Education, Functional Activity Ney, Functional Strength, Gait, Safety, Therapeutic Exercise, Transfers Treatment Duration: Oct 11, 2018 Frequency: At least 5 of 7 days/Wk (IRF) Estimated Hrs Per Day: 1.5 hours per day Patient and/or Family Agrees t: Yes Safety Risks/Education Patient Education: Gait Training, Transfer Techniques, Correct Positioning, Disease Process, Safety Issues Teaching Recipient: Patient Teaching Methods: Demonstration, Discussion Response to Teaching: Verbalize Understanding, Return Demonstration, Reinforcement Needed Time/GCodes Time In: 1300 Time Out: 1330 Total Billed Treatment Time: 30 Total Billed Treatment 1,EX15m,Gt15m G Codes Necessary: No WARD HOUSTON HEEL SANDER RUBBER Oct 07, 2018 13:37
[2018-10-07 13:58] VITALS: BP 142/81
[2018-10-07] MEDS ORDERED: MILK OF MAGNESIA 400 MG/5 ML 30 ML UDC PO NR (14:00)
[2018-10-07] MEDS ORDERED: MILK OF MAGNESIA 400 MG/5 ML 30 ML UDC PO PRN (14:00)
[2018-10-07] MEDS: ACETAMINOPHEN 500 MG TAB (TYLENOL) PO PRN ×2 (14:07→18:51)
[2018-10-07] MEDS: MELOXICAM 7.5 MG (MOBIC) TABLET PO SCH ×2 (14:33→21:01)
[2018-10-07] MEDS: ASPIRIN E.C. 81 MG (ECOTRIN) TAB PO SCH (14:33)
[2018-10-07] MEDS: ATENOLOL 25 MG (TENORMIN) TAB PO SCH ×2 (14:33→21:00)
[2018-10-07 18:44] VITALS: BP 121/77
--- NOTE | 2018-10-07 19:22 | NUR ---
bedside report received from ERIC ZHANG, assume care of pt
[2018-10-07 20:55] VITALS: BP 122/73
[2018-10-07] MEDS: SIMvastatin 40 MG (ZOCOR) TAB PO SCH (21:00)
--- NOTE | 2018-10-07 21:00 | NUR ---
assessments & interventions completed, see assessments & interventions, c/o headache pain level 10 but refuses Ultram states it upsets my stomach, also c/o constipation but refuses miralax states took mom today, advised to let this nurse know if wants something for pain
--- NOTE | 2018-10-07 21:08 | NUR ---
OFFICE TECHNOLOGIST received notification from therapy staff that patient is performing all activities with MOD I. Team has recommended patient proceed with discharge home on 10/09. OFFICE TECHNOLOGIST met with patient to discuss this recommendation, she is agreeable as she is in need of returning home to care for her disabled adult son. Patient states she will arrange transport through her other son, of [place]. Patient cannot comply with homebound status due to her son's needs, but is open to outpatient therapy, if recommended.
[2018-10-08 05:59] LABS: BASOPHILS % (AUTO) 0 % (0-10); EOSINOPHILS # (AUTO) 0.4 10^3/uL (0.0-0.3); EOSINOPHILS % (AUTO) 7 % (0-10); HEMATOCRIT 33 % (35-52); HEMOGLOBIN 10.5 G/DL (11.5-16.0); LYMPHOCYTES % (AUTO) 17 % (12-44); MEAN CORPUSCULAR HEMOGLOBIN 28 PG (25-34); MEAN CORPUSCULAR HGB CONC 32 G/DL (32-36); MEAN CORPUSCULAR VOLUME 89 FL (80-99); MEAN PLATELET VOLUME 10.2 FL (7.4-10.4); MONOCYTES # (AUTO) 0.7 X 10^3 (0.0-1.0); MONOCYTES % (AUTO) 12 % (0-12); NEUTROPHILS # (AUTO) 3.8 X 10^3 (1.8-7.8); NEUTROPHILS % (AUTO) 63 % (42-75); PLATELET COUNT 244 10^3/uL (130-400); RED CELL DISTRIBUTION WIDTH 14.3 % (10.0-14.5)
[2018-10-08 06:25] LABS: ALANINE AMINOTRANSFERASE 8 U/L (0-55); ALBUMIN 3.5 GM/DL (3.2-4.5); ALKALINE PHOSPHATASE 60 U/L (40-136); BILIRUBIN,TOTAL 0.8 MG/DL (0.1-1.0); BUN/CREATININE RATIO 20; CALCIUM 9.2 MG/DL (8.5-10.1); CARBON DIOXIDE 29 MMOL/L (21-32); CHLORIDE 98 MMOL/L (98-107); CREATININE SERUM 0.83 MG/DL (0.60-1.30); GFR ESTIMATED > 60; GLUCOSE 96 MG/DL (70-105); SODIUM 135 MMOL/L (135-145); TOTAL PROTEIN 6.2 GM/DL (6.4-8.2)
[2018-10-08] MEDS: PANTOPRAZOLE 40 MG (PROTONIX) TAB PO SCH (06:25)
[2018-10-08] MEDS: ACETAMINOPHEN 500 MG TAB (TYLENOL) PO PRN ×2 (06:26→16:14)
--- NOTE | 2018-10-08 06:26 | NUR ---
c/o hip pain level 3/10 on numeric scale, Tylenol 1000mg po given
[2018-10-08 06:31] VITALS: BP 126/79
--- NOTE | 2018-10-08 06:50 | NUR ---
rates pain at 1/10 on numeric scale
--- NOTE | 2018-10-08 07:32 | NUR ---
bedside report given to GRAY ZHANG
[2018-10-08 08:00] VITALS: BP 144/83
--- NOTE | 2018-10-08 08:00 | NUR ---
PLEASANT AND COOPERATIVE. HESITANT TO TAKE ULTRAM ANYMORE DUE TO FEAR IT CAUSED HER NAUSEA YESTERDAY. STATES GETS ADEQUATE PAIN RELIEF FROM TYLENOL. NO COMPLAINTS.
--- NOTE | 2018-10-08 08:46 | Physical Therapy Daily Note ---
PT Daily Note-Current Subjective Pt sitting in recliner upon arrival. Pt agrees to PT. Pain Numeric Pain Scale: 4 Location: Left Location Body Site: Hip Pain Description: Ache, Tightness Mental Status Patient Orientation: Person, Place, Time, Situation Transfers Therapy Code Descriptions/Definitions Functional [place] Measure: 0=Not Assessed/NA 4=Minimal Assistance 1=Total Assistance 5=Supervision or Setup 2=Maximal Assistance 6=Modified [place] 3=Moderate Assistance 7=Complete [place] Therapy Quality Codes: 6 Independent with activity with or without an assistive device 5 Patient requires set up or clean up by helper. Patient completes activity by themselves 4 Supervision or touching assist (CGA). [place] provide cues , steadying assist 3 The helper provides less than half the effort to complete the activity 2 The helper provides more than half the effort to complete the activity 1 Dependent. The helper does all the effort to complete an activity 7 Patient refused to complete or attempt activity 9 The patient did not perform the activity before the current illness or injury 88 Not attempted due to Medical conditions or safety concerns Transfers (B, C, W/C) (FIM): 6 Scootin Rollin Roll Left to Right (QC): 7 Supine to/from Sit: 7 Sit to/from Stand: 7 Sit to Lying (QC): 7 Sit to Stand (QC): 6 Chair/Dle-ew-Xpfgv Xfer(QC): 6 Bed to/from Chair: 6 Car Transfer (QC): 6 Weight Bearing Right Lower Extremity: Right Full Weight Bearing Left Lower Extremity: Left Full Weight Bearing Gait Training Does the Patient Walk?: Yes Gait (FIM): 6 Distance (FIM): 3=150 ft Distance: 175' Walk 10 feet (QC): 6 Walk 50 ft with 2 Turns(QC): 6 Walk 150 ft (QC): 6 Walking 10ft/uneven surface-QC: 6 Gait Level of Assist: 6 Gait Persons Needed: 1 Gait Assistive Device: FWW Pt walks with antalgic & stiffness in L hip but this does not limit pt participation. Pt feels more comfortable with FWW instead of SPC and asks to use it. Wheelchair Training Does the Pt Use a Wheelchair?: No Stair Training Stair Training: Handrails/: 2 handrails Stairs (FIM): 6 #of Steps: 12 1 Step (curb) (QC): 6 4 Steps (QC): 6 12 Steps (QC): 6 Stairs: Pattern: Step to Level of Assist: 6 Balance Picking up an Object (QC): 88 Special Test Comments Pt does not attempt due to recent hip revision. Exercises NuStep Minutes: 10 NuStep Workload: 3 Treatments Pt completes FIM scoring items including: bed mobility, transfers including car transfers, ambulation including across varying surface, & stairs. Pt then used NuStep for 10m at WL 3. Pt returns to room to rest in recliner at end of tx. All needs met, call light in hand. Assessment Current Status: Good Progress Pt tolerated tx well. Pt excited about D/C tomorrow. PT Half-Way Goals Half-Way Goals PT Bond Writer Goals Time Frame: Oct 11, 2018 Transfers (B,C,W/C) (FIM): 6 Sit to Lying (QC): 6 Lying-Sitting on Side/Bed(QC): 6 Sit to Stand (QC): 6 Rollin Roll Left to Right (QC): 6 Chair/Cdo-en-Kmueo Xfer(QC): 6 Car Transfer (QC): 6 Does the Patient Walk: Yes Gait (FIM): 6 Gait distance (FIM): 3=150 ft Distance: >200' Walk 10 feet (QC): 6 Walk 10ft-Uneven Surface(QC): 6 Walk 50ft with 2 Turns (QC): 6 Walk 150 ft (QC): 6 Gait Level of Assist: 6 Gait Assistive Device: FWW Stairs (FIM): 6 # of Steps: 12 1 Step (curb) (QC): 6 4 Steps (QC): 6 12 Steps (QC): 6 Stairs Level Of Assist: 6 PT Plan Problem List Problem List: Activity Tolerance Treatment/Plan Treatment Plan: Continue Plan of Care Treatment Plan: Education, Functional Activity Ney, Functional Strength, Gait, Safety, Therapeutic Exercise, Transfers Treatment Duration: Oct 11, 2018 Frequency: At least 5 of 7 days/Wk (IRF) Estimated Hrs Per Day: 1.5 hours per day Patient and/or Family Agrees t: Yes Safety Risks/Education Patient Education: Gait Training, Transfer Techniques, Steps, Correct Positioning, Safety Issues Teaching Recipient: Patient Teaching Methods: Discussion Response to Teaching: Verbalize Understanding Time/GCodes Time In: 800 Time Out: 845 Total Billed Treatment Time: 45 Total Billed Treatment 1, GT (15m), EX (15m) & FA (15m) G Codes Necessary: ROSE MARIE Banks PEDIATRIC GENETIC COUNSELOR Oct 08, 2018 08:46
[2018-10-08] MEDS: MELOXICAM 7.5 MG (MOBIC) TABLET PO SCH ×2 (08:49→20:24)
[2018-10-08] MEDS: ATENOLOL 25 MG (TENORMIN) TAB PO SCH ×2 (08:49→20:24)
[2018-10-08] MEDS: ASPIRIN E.C. 81 MG (ECOTRIN) TAB PO SCH (08:49)
[2018-10-08] MEDS: POLYETHYLENE GLYCOL 17 GM (MIRALAX) PACK PO PRN (08:50)
--- NOTE | 2018-10-08 09:59 | Occupational Ther Daily Note ---
OT Current Status-Daily Note Subjective pt sitting in recliner chair upon OT arrival. pt agreed to OT TX Session with focus on increasing independence with ADLS/ IADLs and developing HEP. Mental Status/Objective Patient Orientation: Normal For Age Therapy Code Descriptions/Definitions Functional [place] Measure: 0=Not Assessed/NA 4=Minimal Assistance 1=Total Assistance 5=Supervision or Setup 2=Maximal Assistance 6=Modified [place] 3=Moderate Assistance 7=Complete [place] Comprehension(FIM): 6 (glasses) Expression(FIM): 7 Social Interaction(FIM): 7 Problem Solving(FIM): 7 Memory(FIM): 7 ADL-Treatment Therapy Code Descriptions/Definitions Functional [place] Measure: 0=Not Assessed/NA 4=Minimal Assistance 1=Total Assistance 5=Supervision or Setup 2=Maximal Assistance 6=Modified [place] 3=Moderate Assistance 7=Complete [place] Therapy Quality Codes: 6 Independent with activity with or without an assistive device 5 Patient requires set up or clean up by helper. Patient completes activity by themselves 4 Supervision or touching assist (CGA). [place] provide cues , steadying assist 3 The helper provides less than half the effort to complete the activity 2 The helper provides more than half the effort to complete the activity 1 Dependent. The helper does all the effort to complete an activity 7 Patient refused to complete or attempt activity 9 The patient did not perform the activity before the current illness or injury 88 Not attempted due to Medical conditions or safety concerns Eating (FIM): 7 Eating (QC): 6 Grooming (FIM): 7 (standing at sink) Oral Hygiene (QC): 6 Bathing (FIM): 7 Bathing Location: L Arm, R Arm, L Upper Leg, R Upper Leg, L Lower Leg (including foot), R Lower Leg (including foot), Chest, Abdomen, Buttocks, Perineal Area Shower/Bathe Self (QC): 6 Upper Body (FIM): 7 (shirt, bra, jacket ) Upper Body Dressing (QC): 6 Lower Body Dressing (FIM): 6 (use of returns processor, dressing stick. dalila shoes, dalila socks, underpants, and pants ) Lower Body Dressing (QC): 6 On/Off Footwear (QC): 6 Toileting (FIM): 7 (3/3) Toileting Hygiene (QC): 6 Transfers (B, C, W/C) (FIM): 6 (use of RW ) Toilet/Commode Transfer (FIM): 6 (use of RW ) Toilet Transfer (QC): 6 Tub Transfer(FIM): 6 Shower Transfer(FIM): 6 (use of RW, shower chair.) pt demo ability to gather clothing, set up bathroom, complete ADL in bathroom, and clean up bathroom post ADLs. no safety concerns noted. Other Treatment post ADLS pt education on kitchen mobility with use of RW/ placement of RW while performing tasks. pt perform ability to use oven, draw in hand, and refrigerator maintaining hip precautions. pt perform task MOD I using RW. pt then demo ability to ambulate to [employer] shop approx 350 ft and perform functional mobility throughout [employer] shop on prep for grocery shopping. pt stated concerns about caring for her 230lb son who is dep for transfers. pt education on having family member complete transfers for son when d/c home secondary to precautions and safety of pt. pt verbalized understanding and stated she will have her grandchildren assist her with her son. pt education on HEP. pt given handout. pt perform HEP 15X2 shoulder flex/ EXT/ ADD/ ABD, elbow flex/ ext using 2#weights. pt ambulated back to room MOD I using use of RW. pt is ad laurent in room. all needs met. Education OT Patient Education: Energy conservation, Progress toward Goal/Update tx plan, Purpose of tx/functional activities, Reviewed precautions, Safety issues, Transfer techniques, Use of adapted equipment Teaching Recipient: Patient Teaching Methods: Demonstration, Discussion Response to Teaching: Verbalize Understanding, Return Demonstration OT Short Term Goals Short Term Goals Time Frame: Oct 11, 2018 Bathing(FIM): 5 Lower Body Dressing(FIM): 5 Additional Short Term Goals: 1-Demonstrate ADL Tasks, 2-Verbalize Understanding, 3-ImproveStrength/Ney 1=Demonstrate adherence to instructed precautions during ADL tasks. 2=Patient will verbalize/demonstrate understanding of assistive devices/modifications for ADL. 3=Patient will improve strength/tolerance for activity to enable patient to perform ADL's. OT Social Contact Worker Goals Senior Living Goals Time Frame: Oct 18, 2018 Eating (FIM): 7 (MET) Eating (QC): 6 (MET) Groomin (MET) Oral Hygiene (QC): 6 (MET) Bathing(FIM): 6 (MET) Bathing Location: L Arm, R Arm, L Upper Leg, R Upper Leg, L Lower Leg (including foot), R Lower Leg (including foot), Chest, Abdomen, Buttocks, Perineal Area Shower/Bathe Self (QC): 6 (MET) Upper Body Dressing(FIM): 6 (MET) Upper Body Dressing (QC): 6 (MET) Lower Body Dressing(FIM): 6 (MET) Lower Body Dressing (QC): 6 (MET) On/Off Footwear (QC): 6 (MET) Toileting(FIM): 6 (MET) Toileting Hygiene (QC): 6 (MET) Transfers (B,C,W/C) (FIM): 6 (MET) Toilet/Commode Transfer(FIM): 6 (MET) Toilet/Commode Transfer (QC): 6 (MET) Shower Transfer(FIM): 6 (MET) Additional Goals: 1-Demonstrate ADL Tasks, 2-Verbalize Understanding, 3- ImproveStrength/Ney 1=Demonstrate adherence to instructed precautions during ADL tasks. 2=Patient will verbalize/demonstrate understanding of assistive devices/modifications for ADL. 3=Patient will improve strength/tolerance for activity to enable patient to perform ADL's. OT Education/Plan Problem List/Assessment Assessment: Decreased UE Strength Discharge Recommendations Plan/Recommendations: Continue POC Therapy D/C Recommendations: Home w/ Family Support Equpiment Recommendations-D/C: Estimator Printing Plate Making, Dressing Stick Treatment Plan/Plan of Care Treatment,Training & Education: Yes Patient would benefit from OT for education, treatment and training to promote independence in ADL's, mobility, safety and/or upper extremity function for ADL's. Plan of Care: ADL Retraining, Caregiver Training, Concurrent Therapy, Functional Mobility, Group Exercise/Act as Ind, UE Funct Exercise/Act Treatment Duration: Oct 18, 2018 Frequency: At least 5 of 7 days/Wk (IRF) Estimated Hrs Per Day: 1 hour per day (60-90 minutes per day ) Agreement: Yes Rehab Potential: Good Time/GCodes Start Time: 09:30 Stop Time: 11:00 Billed Treatment Time ADL 45 minutes, 3 units EX 25 minutes, 2 units FA 20 minutes, 1 unit TRELL VARGAS OT Oct 08, 2018 09:59
--- NOTE | 2018-10-08 10:11 | PM&R Progress Note ---
Subjective HPI/CC On Admission Date Seen by Provider: Oct 08, 2018 Time Seen by Provider: 08:30 CC: Debility following left hip revision replacement POD # 2 HPI: This is an 82yoWF who presents following an uncomplicated left hip rep lacement revision at [facility] on Sunday. C Wpf Developer is Dr Kennedy and she was just told last week her aortic stenosis progressed from mild to moderate in severity. and She had a bit of a slow recovery due to labile HTN and then orthostasis causing slowed PT progress yesterday but since that time her BP has become stable and she has had no other near syncopal episodes and has had a BM this morning and is urinating well. She is using IS. 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 She has h/o valvular heart disease and denies any chest pain or dyspnea. She is a retired RN at [employer]. Subjective/Events-last exam Hgb 10.5, the rest of labs normal. Will DC Ultram since its making her nauseated. Will discharge tomorrow home with home health. Overall much improved and no falls reported. Conferred with RN. Checked meds and labs. Reviewed therapy notes. Review of Systems General: Fatigue Gastrointestinal: Nausea Objective Exam Vital Signs Vital Signs Date Time Temp Pulse Resp B/P (MAP) Pulse Ox O2 Delivery O2 Flow Rate FiO2 10/08/18 17:11 97.5 68 18 135/80 (98) 98 Room Air Capillary Refill : General Appearance: No Apparent Distress, WD/WN, Chronically ill HEENT: PERRL/EOMI, Normal ENT Inspection, Pharynx Normal, Moist Mucous Membranes Neck: Full Range of Motion, Normal Inspection, Non Tender, Supple Respiratory: Chest Non Tender, Lungs Clear, Normal Breath Sounds, No Accessory Muscle Use, No Respiratory Distress Cardiovascular: Regular Rate, Rhythm, No Gallop, No JVD, Systolic Murmur Gastrointestinal: Normal Bowel Sounds, No Organomegaly, No Pulsatile Mass, Non Tender, Soft Back: Normal Inspection, No CVA Tenderness, No Vertebral Tenderness Extremity: Normal Capillary Refill, Normal Inspection, Normal Range of Motion (except left leg from post op status), Non Tender, No Calf Tenderness, Pedal Ed mari (trace) Neurologic/Psychiatric: Alert, Oriented x3, No Motor/Sensory Deficits, Normal Mood/Affect, metal ceiling hanger II-XII Norm as Tested Skin: Normal Color, Warm/Dry Lymphatic: No Adenopathy Results/Procedures Lab Laboratory Tests 10/08/18 05:36 Patient resulted labs reviewed. FIM Transfers Therapy Code Descriptions/Definitions Functional [place] Measure: 0=Not Assessed/NA 4=Minimal Assistance 1=Total Assistance 5=Supervision or Setup 2=Maximal Assistance 6=Modified [place] 3=Moderate Assistance 7=Complete [place] Therapy Quality Codes: 6 Independent with activity with or without an assistive device 5 Patient requires set up or clean up by helper. Patient completes activity by themselves 4 Supervision or touching assist (CGA). [place] provide cues , steadying assist 3 The helper provides less than half the effort to complete the activity 2 The helper provides more than half the effort to complete the activity 1 Dependent. The helper does all the effort to complete an activity 7 Patient refused to complete or attempt activity 9 The patient did not perform the activity before the current illness or inj ury 88 Not attempted due to Medical conditions or safety concerns Transfers (B, C, W/C) (FIM): 6 (use of RW ) Scootin Rollin Roll Left to Right (QC): 7 Supine to/from Sit: 7 Sit to/from Stand: 7 Sit to Lying (QC): 7 Sit to Stand (QC): 6 Chair/Fjk-il-Ckwtt Xfer(QC): 6 Bed to/from Chair: 6 Car Transfer (QC): 6 Gait Training Does the Patient Walk?: Yes Gait (FIM): 6 Distance (FIM): 3=150 ft Distance: 175' Walk 10 feet (QC): 6 Walk 50 ft with 2 Turns(QC): 6 Walk 150 ft (QC): 6 Walking 10ft/uneven surface-QC: 6 Gait Level of Assist: 6 Gait Persons Needed: 1 Gait Assistive Device: FWW Wheelchair Training Does the Pt Use a Wheelchair?: No Stair Training Stair Training: Handrails/: 2 handrails Stairs (FIM): 6 #of Steps: 12 1 Step (curb) (QC): 6 4 Steps (QC): 6 12 Steps (QC): 6 Stairs: Pattern: Step to Level of Assist: 6 Balance Picking up an Object (QC): 88 Mental Status/Objective Comprehension: 6 Expression: 7 Social Interaction: 7 Problem Solvin Memory: 7 ADL-Treatment Feedin Eating (QC): 6 Groomin Oral Hygiene (QC): 6 Bathin Bathing Location: L Arm, R Arm, L Upper Leg, R Upper Leg, L Lower Leg (including foot), R Lower Leg (including foot), Chest, Abdomen, Buttocks, Perineal Area Shower/Bathe Self (QC): 6 Upper Extremity Dressin (shirt, bra, jacket ) Upper Body Dressing (QC): 6 Lower Extremity Dressin (use of vascular neurologist, dressing stick. dalila shoes, dalila socks, underpants, and pants ) Lower Body Dressing (QC): 6 On/Off Footwear (QC): 6 Toiletin (3/3) Toileting Hygiene (QC): 6 Toilet/Commode Transfer: 6 (use of RW ) Toilet Transfer (QC): 6 Tub: 6 Shower: 6 (use of RW, shower chair.) Assessment/Plan Assessment and Plan Assess & Plan/Chief Complaint Assessment: s/p left hip replacement revision POD # 6 Subtle lower leg edema Post op orthostasis causing slow recovery HTN HLP CAD Aortic stenosis moderate OA Neuropathy Angina Thyroid nodule Nausea-resolved since DC Ultram Plan: Monitor pain Reconciled all home meds ASA for DVT PPx per ortho Monitor cardiac status Monitor nausea (1) History of left hip replacement (2) Osteoporosis (3) Aortic stenosis (4) CAD (coronary artery disease) (5) Hyperlipidemia (6) Osteoarthritis (7) Neuropathy (8) Angina pectoris (9) Pacemaker (10) IBS (irritable bowel syndrome) (11) Orthostasis (12) Left hip pain (13) GERD (gastroesophageal reflux disease) (14) Mitral valve replaced (15) History of coronary artery stent placement VANE KRISHNA DO Oct 08, 2018 10:11
--- NOTE | 2018-10-08 13:34 | Physical Therapy Daily Note ---
PT Daily Note-Current Subjective Pt sitting in recliner upon arrival. Pt agrees to PT. Pain Location: No Pain Reported Mental Status Patient Orientation: Person, Place, Time, Situation Transfers Therapy Code Descriptions/Definitions Functional [place] Measure: 0=Not Assessed/NA 4=Minimal Assistance 1=Total Assistance 5=Supervision or Setup 2=Maximal Assistance 6=Modified [place] 3=Moderate Assistance 7=Complete [place] Therapy Quality Codes: 6 Independent with activity with or without an assistive device 5 Patient requires set up or clean up by helper. Patient completes activity by themselves 4 Supervision or touching assist (CGA). [place] provide cues , steadying assist 3 The helper provides less than half the effort to complete the activity 2 The helper provides more than half the effort to complete the activity 1 Dependent. The helper does all the effort to complete an activity 7 Patient refused to complete or attempt activity 9 The patient did not perform the activity before the current illness or injury 88 Not attempted due to Medical conditions or safety concerns Sit to/from Stand: 6 Sit to Stand (QC): 6 Weight Bearing Right Lower Extremity: Right Full Weight Bearing Left Lower Extremity: Left Full Weight Bearing Gait Training Does the Patient Walk?: Yes Gait (FIM): 6 Distance (FIM): 3=150 ft Distance: 300' Walk 10 feet (QC): 6 Walk 50 ft with 2 Turns(QC): 6 Walk 150 ft (QC): 6 Gait Level of Assist: 6 Gait Persons Needed: 1 Gait Assistive Device: FWW Wheelchair Training Does the Pt Use a Wheelchair?: No Exercises NuStep Minutes: 10 NuStep Workload: 4 Treatments Pt transfers from recliner and ambulates in hallway using FWW. Pt uses NuStep for 10m at WL 4 then takes short RB. Pt again ambulates in hallway before returning to room to rest in recliner, call light in hand. Assessment Current Status: Good Progress Pt tolerates tx well and will be successful at home. PT Longterm Goals Longterm Goals PT Longterm Goals Time Frame: Oct 11, 2018 Transfers (B,C,W/C) (FIM): 6 Sit to Lying (QC): 6 Lying-Sitting on Side/Bed(QC): 6 Sit to Stand (QC): 6 Rollin Roll Left to Right (QC): 6 Chair/Gsm-au-Qaooy Xfer(QC): 6 Car Transfer (QC): 6 Does the Patient Walk: Yes Gait (FIM): 6 Gait distance (FIM): 3=150 ft Distance: >200' Walk 10 feet (QC): 6 Walk 10ft-Uneven Surface(QC): 6 Walk 50ft with 2 Turns (QC): 6 Walk 150 ft (QC): 6 Gait Level of Assist: 6 Gait Assistive Device: FWW Stairs (FIM): 6 # of Steps: 12 1 Step (curb) (QC): 6 4 Steps (QC): 6 12 Steps (QC): 6 Stairs Level Of Assist: 6 PT Plan Problem List Problem List: Activity Tolerance Treatment/Plan Treatment Plan: Continue Plan of Care Treatment Plan: Education, Functional Activity Ney, Functional Strength, Gait, Safety, Therapeutic Exercise, Transfers Treatment Duration: Oct 11, 2018 Frequency: At least 5 of 7 days/Wk (IRF) Estimated Hrs Per Day: 1.5 hours per day Patient and/or Family Agrees t: Yes Safety Risks/Education Patient Education: Gait Training, Correct Positioning, Safety Issues Teaching Recipient: Patient Teaching Methods: Discussion Response to Teaching: Verbalize Understanding Time/GCodes Time In: 1300 Time Out: 1330 Total Billed Treatment Time: 30 Total Billed Treatment 1,GT (15m) & EX (15m) G Codes Necessary: ROSE MARIE Banks PHARMACEUTICAL BOTANIST Oct 08, 2018 13:33
[2018-10-08 17:11] VITALS: BP 135/80
[2018-10-08] MEDS: SIMvastatin 40 MG (ZOCOR) TAB PO SCH (20:24)
[2018-10-09] MEDS: PANTOPRAZOLE 40 MG (PROTONIX) TAB PO SCH (06:16)
[2018-10-09 06:21] VITALS: BP 158/88
[2018-10-09 08:00] VITALS: BP 145/88
--- NOTE | 2018-10-09 08:00 | NUR ---
FEELS READY TO GO HOME. MEDICATED WITH TYLENOL FOR MILD LEFT HIP DISCOMFORT. NO OTHER COMPLAINTS OR CONCERNS.
[2018-10-09] MEDS: MELOXICAM 7.5 MG (MOBIC) TABLET PO SCH (08:21)
[2018-10-09] MEDS: ASPIRIN E.C. 81 MG (ECOTRIN) TAB PO SCH (08:21)
[2018-10-09] MEDS: ACETAMINOPHEN 500 MG TAB (TYLENOL) PO PRN (08:21)
[2018-10-09] MEDS: ATENOLOL 25 MG (TENORMIN) TAB PO SCH (08:21)
[2018-10-09] MEDS ORDERED: MELO7.5T46 PO (09:10)
[2018-10-09] MEDS ORDERED: PANT40TA3 PO (09:10)
--- NOTE | 2018-10-09 09:13 | Discharge Summary ---
Diagnosis/Chief Complaint Date of Admission Oct 04, 2018 at 13:37 Date of Discharge Discharge Date: Oct 09, 2018 Discharge Diagnosis Assessment: s/p left hip replacement revision POD # 5 Subtle lower leg edema Post op orthostasis causing slow recovery HTN HLP CAD Aortic stenosis moderate OA Neuropathy Angina Thyroid nodule Nausea Plan: Monitor pain Reconciled all home meds ASA for DVT PPx per ortho Monitor cardiac status Monitor nausea (1) History of left hip replacement (2) Osteoporosis (3) Aortic stenosis (4) CAD (coronary artery disease) (5) Hyperlipidemia (6) Osteoarthritis (7) Neuropathy (8) Angina pectoris (9) Pacemaker (10) IBS (irritable bowel syndrome) (11) Orthostasis (12) Left hip pain (13) GERD (gastroesophageal reflux disease) (14) Mitral valve replaced (15) History of coronary artery stent placement Discharge Summary Discharge Physical Examination Allergies: Coded Allergies: amiodarone (Verified Allergy, Severe, RESPIRATORY, 10/05/18) Sulfa (Sulfonamide Antibiotics) (Verified Allergy, Intermediate, LIPS SWELL UP, 10/05/18) doxycycline (Verified Allergy, Mild, NAUSEA, HEADACHE, 10/05/18) mexiletine (Verified Allergy, Mild, HEADACHE, N/V, 10/05/18) nitrofurantoin (Verified Allergy, Mild, NAUSEA, 10/05/18) Vitals & I&Os Vital Signs Date Time Temp Pulse Resp B/P (MAP) Pulse Ox O2 Delivery O2 Flow Rate FiO2 10/09/18 11:35 71 18 145/88 98 Room Air 10/09/18 06:21 96.9 General Appearance: Alert, Oriented X3, Cooperative Respiratory: Clear to Auscultation, Normal Air Movement Cardiovascular: Regular Rate Abdominal: Normal Bowel Sounds Neuro: Normal Gait, Normal Speech, Strength at 5/5 X4 Ext Psych/Mental Status: Mental Status NL, Mood NL Hospital Course Was the Problem List Reviewed?: Yes Hospital Course: Pt had an uneventful brief hospital course for 5 days in inpatient rehab. The pain was controlled on Ultram but that ended up causing so much nausea the day before DC that she declines to take it anymore. The pain was controlled on Tylenol. She was able to be ambulatory around the unit up ad laurent and the use of a walker and overall dramatically improved, was able to be discharged at home with no PT or home health needed and already had a Dr. Mccallum appointment. I did send in a prescription for Protonix because of nausea that she was having and she will have close follow up with her PCP Dr. Kapoor. Labs (last 24 hrs) Laboratory Tests 10/05/18 04:48: White Blood Count 9.4, Red Blood Count 3.23L, Hemoglobin 9.3L, Hematocrit 29L, Mean Corpuscular Volume 89, Mean Corpuscular Hemoglobin 29, Mean Corpuscular Hemoglobin Concent 32, Red Cell Distribution Width 14.3, Platelet Count 164, Mean Platelet Volume 10.2, Neutrophils (%) (Auto) 72, Lymphocytes (%) (Auto) 15, Monocytes (%) (Auto) 9, Eosinophils (%) (Auto) 4, Basophils (%) (Auto) 0, Neutrophils # (Auto) 6.8, Lymphocytes # (Auto) 1.4, Monocytes # (Auto) 0.8, Eosinophils # (Auto) 0.4H, Basophils # (Auto) 0.0, Sodium Level 135, Potassium Level 4.4, Chloride Level 102, Carbon Dioxide Level 26, Anion Gap 7, Blood Urea Nitrogen 17, Creatinine 0.78, Estimat Glomerular Filtration Rate > 60, BUN/Creatinine Ratio 22, Glucose Level 87, Calcium Level 8.3L, Corrected Calcium 8.9, Total Bilirubin 0.4, Aspartate Amino Transf (AST/SGOT) 23, Alanine Aminotransferase (ALT/SGPT) 6, Alkaline Phosphatase 50, Total Protein 5.7L, Albumin 3.2 10/08/18 05:36: White Blood Count 6.0, Red Blood Count 3.69L, Hemoglobin 10.5L, Hematocrit 33L, Mean Corpuscular Volume 89, Mean Corpuscular Hemoglobin 28, Mean Corpuscular Hemoglobin Concent 32, Red Cell Distribution Width 14.3, Platelet Count 244, Mean Platelet Volume 10.2, Neutrophils (%) (Auto) 63, Lymphocytes (%) (Auto) 17, Monocytes (%) (Auto) 12, Eosinophils (%) (Auto) 7, Basophils (%) (Auto) 0, Neutrophils # (Auto) 3.8, Lymphocytes # (Auto) 1.0, Monocytes # (Auto) 0.7, Eosinophils # (Auto) 0.4H, Basophils # (Auto) 0.0, Sodium Level 135, Potassium Level 4.0, Chloride Level 98, Carbon Dioxide Level 29, Anion Gap 8, Blood Urea Nitrogen 17, Creatinine 0.83, Estimat Glomerular Filtration Rate > 60, BUN/Creatinine Ratio 20, Glucose Level 96, Calcium Level 9.2, Corrected Calcium 9.6, Total Bilirubin 0.8, Aspartate Amino Transf (AST/SGOT) 21, Alanine Aminotransferase (ALT/SGPT) 8, Alkaline Phosphatase 60, Total Protein 6.2L, Albumin 3.5 Pending Labs Laboratory Tests 10/05/18 04:48: White Blood Count 9.4, Red Blood Count 3.23, Hemoglobin 9.3, Hematocrit 29, Mean Corpuscular Volume 89, Mean Corpuscular Hemoglobin 29, Mean Corpuscular Hemoglobin Concent 32, Red Cell Distribution Width 14.3, Platelet Count 164, Mean Platelet Volume 10.2, Neutrophils (%) (Auto) 72, Lymphocytes (%) (Auto) 15, Monocytes (%) (Auto) 9, Eosinophils (%) (Auto) 4, Basophils (%) (Auto) 0, Neutrophils # (Auto) 6.8, Lymphocytes # (Auto) 1.4, Monocytes # (Auto) 0.8, Eosinophils # (Auto) 0.4, Basophils # (Auto) 0.0, Sodium Level 135, Potassium Level 4.4, Chloride Level 102, Carbon Dioxide Level 26, Anion Gap 7, Blood Urea Nitrogen 17, Creatinine 0.78, Estimat Glomerular Filtration Rate > 60, BUN/Creatinine Ratio 22, Glucose Level 87, Calcium Level 8.3, Corrected Calcium 8.9, Total Bilirubin 0.4, Aspartate Amino Transf (AST/SGOT) 23, Alanine A minotransferase (ALT/SGPT) 6, Alkaline Phosphatase 50, Total Protein 5.7, Albumin 3.2 10/08/18 05:36: White Blood Count 6.0, Red Blood Count 3.69, Hemoglobin 10.5, Hematocrit 33, Mean Corpuscular Volume 89, Mean Corpuscular Hemoglobin 28, Mean Corpuscular Hemoglobin Concent 32, Red Cell Distribution Width 14.3, Platelet Count 244, Mean Platelet Volume 10.2, Neutrophils (%) (Auto) 63, Lymphocytes (%) (Auto) 17, Monocytes (%) (Auto) 12, Eosinophils (%) (Auto) 7, Basophils (%) (Auto) 0, Ne utrophils # (Auto) 3.8, Lymphocytes # (Auto) 1.0, Monocytes # (Auto) 0.7, Eosinophils # (Auto) 0.4, Basophils # (Auto) 0.0, Sodium Level 135, Potassium Level 4.0, Chloride Level 98, Carbon Dioxide Level 29, Anion Gap 8, Blood Urea Nitrogen 17, Creatinine 0.83, Estimat Glomerular Filtration Rate > 60, BUN/Creatinine Ratio 20, Glucose Level 96, Calcium Level 9.2, Corrected Calcium 9.6, Total Bilirubin 0.8, Aspartate Amino Transf (AST/SGOT) 21, Alanine Aminotransferase (ALT/SGPT) 8, Alkaline Phosphatase 60, Total Protein 6.2, Albumin 3.5 Discharge Home Medications: Active Scripts Active Pantoprazole Sodium 40 Mg Tablet.dr 40 Mg PO DAILY@0700 Meloxicam 7.5 Mg Tablet 7.5 Mg PO BID Reported Tylenol Extra Strength (Acetaminophen) 500 Mg Tablet 1,000 Mg PO Q4H PRN TAKES 2 (500MG) TABLETS Aspirin EC (Aspirin) 81 Mg Tablet.dr 81 Mg PO DAILY Miralax (Polyethylene Glycol 3350) 17 Gm Powd.pack 17 Gm PO DAILY PRN Simvastatin 40 Mg Tablet 40 Mg PO HS Atenolol 25 Mg Tablet 50 Mg PO BID TAKES 2 (25MG) TABLETS Instructions to patient/family Please see electronic discharge instructions given to patient. Diagnosis/Problems Diagnosis/Problems (1) History of left hip replacement Status: Acute (2) Osteoporosis (3) Aortic stenosis (4) CAD (coronary artery disease) (5) Hyperlipidemia (6) Osteoarthritis (7) Neuropathy (8) Angina pectoris (9) Pacemaker (10) IBS (irritable bowel syndrome) (11) Orthostasis (12) Left hip pain (13) GERD (gastroesophageal reflux disease) (14) Mitral valve replaced (15) History of coronary artery stent placement Clinical Quality Measures DVT/VTE Risk/Contraindication: Risk Factor Score Per Nursin RFS Level Per Nursing on Admit: 4+=Very High AVNE KRISHNA DO Oct 09, 2018 09:13
--- NOTE | 2018-10-09 09:41 | NUR ---
TANK WAGON DRIVER met with patient to review any last minute concerns regarding discharge plans today. She expresses none and is eager to return home. Following discussion with therapy, patient is not in need of outpatient therapies and patient does not prefer this service. Patient's son, Emerson will provide transport home today around 11am. Please see discharge summary for further information.
--- NOTE | 2018-10-09 10:25 | Therapy Team Discharge Summary ---
Therapy Discharge Summary Discharge Recommendations Date of Discharge 10/09/2018 Therapy D/C Recommendations: Home w/ Family Support Physical Therapy Pt was admitted to this facility post acute hospital stay due to a left hip replacement revision. Prior to surgery, she was indep at home. At admission and discharge from this unit she was mod indep with transfers, gait and stairs. Treatment focused on continued functional strength and mobility post surgery. Goals met. Pt to discharge home. Pt may benefit from continued care on an outpt or [facility] basis to further increase strength due to recent surgery. Will DC from ARU at this time. Occupational Therapy Decreased UE Strength PT Administrative Coordinator Goals Administrative Coordinator Goals PT Usp Goals Time Frame: Oct 11, 2018 Transfers (B,C,W/C) (FIM): 6 Roll Left to Right (QC): 6 Sit to Lying (QC): 6 Lying-Sitting on Side/Bed(QC): 6 Sit to Stand (QC): 6 Chair/Mad-wv-Dxbob Xfer(QC): 6 Car Transfer (QC): 6 Does the Patient Walk: Yes Gait (FIM): 6 Gait distance (FIM): 3=150 ft Distance: >200' Walk 10 feet (QC): 6 Walk 10ft-Uneven Surface(QC): 6 Walk 50ft with 2 Turns (QC): 6 Walk 150 ft (QC): 6 Gait Level of Assist: 6 Gait Assistive Device: FWW Stairs (FIM): 6 # of Steps: 12 1 Step (curb) (QC): 6 4 Steps (QC): 6 12 Steps (QC): 6 Stairs Level Of Assist: 6 pt was mod indep at admit and remained at mod indep at ct. Goals met OT Administrative Coordinator Goals Administrative Coordinator Goals Time Frame: Oct 18, 2018 Eating (FIM): 7 (MET) Eating (QC): 6 (MET) Oral Hygiene (QC): 6 (MET) Grooming(FIM): 6 (MET) Bathing(FIM): 6 (MET) Bathing Location: L Arm, R Arm, L Upper Leg, R Upper Leg, L Lower Leg (including foot), R Lower Leg (including foot), Chest, Abdomen, Buttocks, Perineal Area Shower/Bathe Self (QC): 6 (MET) Upper Body Dressing(FIM): 6 (MET) Upper Body Dressing (QC): 6 (MET) Lower Body Dressing(FIM): 6 (MET) Lower Body Dressing (QC): 6 (MET) On/Off Footwear (QC): 6 (MET) Toileting(FIM): 6 (MET) Toileting Hygiene (QC): 6 (MET) Transfers (B,C,W/C) (FIM): 6 (MET) Toilet/Commode Transfer(FIM): 6 (MET) Toilet/Commode Transfer (QC): 6 (MET) Shower Transfer(FIM): 6 (MET) Additional Goals: 1-Demonstrate ADL Tasks, 2-Verbalize Understanding, 3- ImproveStrength/Ney 1=Demonstrate adherence to instructed precautions during ADL tasks. 2=Patient will verbalize/demonstrate understanding of assistive afshan elizabet/modifications for ADL. 3=Patient will improve strength/tolerance for activity to enable patient to perform ADL's. KELLEY ALVAREZ PT Oct 09, 2018 10:25
--- NOTE | 2018-10-09 11:21 | Therapy Team Discharge Summary ---
Therapy Discharge Summary Discharge Recommendations Date of Discharge Therapy D/C Recommendations: Home w/ Family Support Occupational Therapy pt has made great progress while in inpt rehab. pt currently can perform all ADLS and functional transfer indep/ MOD I using RW, is architect and dressing stick while maintaining hip precautions and good safety awareness. pt to d/c home with family support this date. recommended AE: dressing stick, is architect, shower chair, RW, and non-skid shower mats. d/c OT services at this time as patient has met all OT goals. No Skilled OT Needs ID'd PT Marketing Sales Manager Goals Nursing Home Goals PT Nursing Home Goals Time Frame: Oct 11, 2018 Transfers (B,C,W/C) (FIM): 6 Roll Left to Right (QC): 6 Sit to Lying (QC): 6 Lying-Sitting on Side/Bed(QC): 6 Sit to Stand (QC): 6 Chair/Vhx-wl-Gsgnj Xfer(QC): 6 Car Transfer (QC): 6 Does the Patient Walk: Yes Gait (FIM): 6 Gait distance (FIM): 3=150 ft Distance: >200' Walk 10 feet (QC): 6 Walk 10ft-Uneven Surface(QC): 6 Walk 50ft with 2 Turns (QC): 6 Walk 150 ft (QC): 6 Gait Level of Assist: 6 Gait Assistive Device: FWW Stairs (FIM): 6 # of Steps: 12 1 Step (curb) (QC): 6 4 Steps (QC): 6 12 Steps (QC): 6 Stairs Level Of Assist: 6 OT Marketing Sales Manager Goals Marketing Sales Manager Goals Time Frame: Oct 18, 2018 Eating (FIM): 7 (MET) Eating (QC): 6 (MET) Oral Hygiene (QC): 6 (MET) Grooming(FIM): 6 (MET) Bathing(FIM): 6 (MET) Bathing Location: L Arm, R Arm, L Upper Leg, R Upper Leg, L Lower Leg (including foot), R Lower Leg (including foot), Chest, Abdomen, Buttocks, Perineal Area Shower/Bathe Self (QC): 6 (MET) Upper Body Dressing(FIM): 6 (MET) Upper Body Dressing (QC): 6 (MET) Lower Body Dressing(FIM): 6 (MET) Lower Body Dressing (QC): 6 (MET) On/Off Footwear (QC): 6 (MET) Toileting(FIM): 6 (MET) Toileting Hygiene (QC): 6 (MET) Transfers (B,C,W/C) (FIM): 6 (MET) Toilet/Commode Transfer(FIM): 6 (MET) Toilet/Commode Transfer (QC): 6 (MET) Shower Transfer(FIM): 6 (MET) Additional Goals: 1-Demonstrate ADL Tasks, 2-Verbalize Understanding, 3- ImproveStrength/Ney 1=Demonstrate adherence to instructed precautions during ADL tasks. 2=Patient will verbalize/demonstrate understanding of assistive devices/modifications for ADL. 3=Patient will improve strength/tolerance for activity to enable patient to perform ADL's. TRELL VARGAS OT Oct 09, 2018 11:21
[2018-10-09 11:35] VITALS: BP 145/88
== END 2018-10-09 11:42 | disposition home or self-care (01) | DRG 950 ==
PROVIDERS: ADMIT Internal Medicine; ATTEND Internal Medicine
DX: T84.091D Other mechanical complication of internal left hip prosthesis, subsequent encounter (principal); I35.0 Nonrheumatic aortic (valve) stenosis; I10 Essential (primary) hypertension; I25.119 Atherosclerotic heart disease of native coronary artery with unspecified angina pectoris; G62.9 Polyneuropathy, unspecified; K58.9 Irritable bowel syndrome, unspecified; M81.0 Age-related osteoporosis without current pathological fracture; F41.9 Anxiety disorder, unspecified; R60.0 Localized edema; R11.0 Nausea; F32.9 Major depressive disorder, single episode, unspecified; E78.5 Hyperlipidemia, unspecified; E04.1 Nontoxic single thyroid nodule; K21.9 Gastro-esophageal reflux disease without esophagitis; Z95.2 Presence of prosthetic heart valve; Z95.0 Presence of cardiac pacemaker; Z95.5 Presence of coronary angioplasty implant and graft; T40.0X5A Adverse effect of opium, initial encounter
CPT/HCPCS: 36415; 80053; 85025

== ENCOUNTER 2020-11-24 09:38 | Outpatient (RCR) | payer MEDICARE ==
[~2020-11-24 09:38] MED LIST: ACET-2267 PO; ALEN70TA80 PO; ASPI-1238 PO; ATEN25TA PO; MELO-170 PO; MELO7.5T46 PO; PANT40TA2 PO; PANT40TA52 PO; POLY17PO6 PO; SIMV40TA25 PO; TRM50T PO
== END 2020-11-25 | disposition home or self-care (01) ==
LOC: CR 09:38
PROVIDERS: ATTEND Internal Medicine Interventional Cardiology
DX: Z09 Encounter for follow-up examination after completed treatment for conditions other than malignant neoplasm (principal); Z95.2 Presence of prosthetic heart valve
CPT/HCPCS: 93798

== ENCOUNTER → 2021-02-11 | Outpatient (RCR) | payer MEDICARE | END | disposition home or self-care (01) | LOC: CR3 01-12 11:27 | PROVIDERS: ATTEND Internal Medicine Interventional Cardiology | DX: Z29.8 Encounter for other specified prophylactic measures (principal) ==

== ENCOUNTER 2021-02-23 09:22 | Outpatient (RCR) | payer MEDICARE | END 2021-02-24 | disposition home or self-care (01) | LOC: CR 09:22 | PROVIDERS: ATTEND Internal Medicine Interventional Cardiology | DX: Z13.6 Encounter for screening for cardiovascular disorders (principal); Z95.2 Presence of prosthetic heart valve | CPT/HCPCS: 93798 ==

== ENCOUNTER 2021-04-15 10:10 | Outpatient (RCR) | payer MEDICARE | END 2021-04-24 | disposition home or self-care (01) | LOC: CR3 10:10 | PROVIDERS: ATTEND Internal Medicine Interventional Cardiology | DX: Z29.8 Encounter for other specified prophylactic measures (principal) ==

== ENCOUNTER 2021-05-16 09:19 | Outpatient (RCR) | payer MEDICARE | END 2021-05-25 | disposition home or self-care (01) | LOC: CR3 09:19 | PROVIDERS: ATTEND Internal Medicine Interventional Cardiology | DX: Z01.818 Encounter for other preprocedural examination (principal) ==

== ENCOUNTER 2021-07-20 09:13 | Outpatient (RCR) | payer MEDICARE | END 2021-07-23 | disposition home or self-care (01) | LOC: CR3 09:13 | PROVIDERS: ATTEND Internal Medicine Interventional Cardiology | DX: Z29.8 Encounter for other specified prophylactic measures (principal) ==

== ENCOUNTER 2021-09-21 14:26 | Outpatient (RCR) | payer MEDICARE | END 2021-09-22 | disposition home or self-care (01) | LOC: CR3 14:26 | PROVIDERS: ATTEND Internal Medicine Interventional Cardiology | DX: Z29.8 Encounter for other specified prophylactic measures (principal) ==

== ENCOUNTER 2021-11-21 14:58 | Outpatient (RCR) | payer MEDICARE | END 2021-11-22 | disposition home or self-care (01) | LOC: CR3 14:58 | PROVIDERS: ATTEND Internal Medicine Interventional Cardiology | DX: Z29.8 Encounter for other specified prophylactic measures (principal) ==

== ENCOUNTER 2021-12-16 09:04 | Outpatient (RCR) | payer MEDICARE | END 2021-12-23 | disposition home or self-care (01) | LOC: CR3 09:04 | PROVIDERS: ATTEND Internal Medicine Interventional Cardiology | DX: Z29.8 Encounter for other specified prophylactic measures (principal) ==

== ENCOUNTER 2022-04-21 13:45 | Inpatient (IN) | payer MEDICARE ==
[~2022-04-21] VITALS: Ht 160 cm; Wt 58.2 kg
[2022-04-21] MEDS ORDERED: PROP80CA47 PO (16:10)
[2022-04-21] MEDS ORDERED: ONDA4TAB11 SL (16:10)
[2022-04-21] MEDS ORDERED: OXYC5TAB PO (16:10)
[2022-04-21] MEDS ORDERED: DIGO125T3 PO (16:10)
[2022-04-21] MEDS ORDERED: NITR0.4T39 SL (16:10)
[2022-04-21] MEDS ORDERED: PROP80CA4 PO (16:10)
[2022-04-21] MEDS ORDERED: ALEN70TA80 PO (16:10)
[2022-04-21] MEDS ORDERED: ROSU40TA23 PO (16:10)
[2022-04-21] MEDS ORDERED: MULT-1136 PO (16:10)
[2022-04-21] MEDS ORDERED: POLY17PO6 PO (16:10)
[2022-04-21] MEDS ORDERED: DICL100G13 TP (16:10)
[2022-04-21] MEDS ORDERED: APIX5TAB PO (16:10)
[2022-04-21] MEDS ORDERED: VERA180C4 PO (16:10)
--- NOTE | 2022-04-21 17:25 | PM&R Post Admission Assessment ---
PM&R HP Date of Visit: Apr 21, 2022 Time of Visit: 19:00 History of Present Illness C: Pelvic fracture HPI: This is an 86yoWF clinic patient of Dr Suraj Kapoor in [place] who presents from [facility] following a fall at home resulting in mildly displaced and comminuted right superior pubic ramus fracture and possible right inferior pubic ramus fracture which are all non surgical in nature. She has a long hx of CAD and AF with TAVR-repaired and lives at home with her family. Her bowels are moving and she takes Miralax at home. Her pain is controlled but can't take Oxycodone which is on her DC med list since it makes her dizzy and confused so I did not restart that on her DC med list and instead initiated Tramadol and Lortab along with Tylenol. She has been admitted to this unit before after a hip revision in 2019. To note she had an atrial fibrillation 2 weeks ago and verapamil and digoxin were both discontinued. Past Ejmvqzq-Eqcuoq-Gircbc Hx Past Med/Social Hx: Reviewed Nursing Past Med/Soc Hx, Reviewed and Corrections made Patient Social History Marrital Status: single Employed/Student: retired Alcohol Use: Denies Use Smoking Status: Never a Smoker Recent Hopitalizations: Yes (10-02-18 REVISION OF LEFT TOTAL HIP) Immunizations Up To Date Pediatric: No Date of Pneumonia Vaccine: Jan 04, 2018 Seasonal Allergies Seasonal Allergies: No Past Medical History Surgeries: Coronary Stent, Hysterectomy, Orthopedic, Pacemaker, Valve Replacement Currently Using CPAP: No Currently Using BIPAP: No Cardiac: Atrial Fibrillation, Coronary Artery Disease, Heart Murmur, High Cholesterol, Hypertension, Valvular Heart Disease Neurological: Neuropathy Gastrointestinal: Chronic Constipation, Irritable Bowel Musculoskeletal: Osteoporosis thyroid nodule HEENT: Cataract Hearing Impairment: Hearing Aide Right, Hearing Aide Left History of Blood Disorders: No Family History Diabetes mellitus G8 BROTHER FH: lung cancer 19 MOTHER 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 PM&R Allergy/Meds/Data Review Allergies Coded Allergies: amiodarone (Verified Allergy, Severe, RESPIRATORY, 10/05/18) Sulfa (Sulfonamide Antibiotics) (Verified Allergy, Intermediate, LIPS SWELL UP, 10/05/18) doxycycline (Verified Allergy, Mild, NAUSEA, HEADACHE, 10/05/18) mexiletine (Verified Allergy, Mild, HEADACHE, N/V, 10/05/18) nitrofurantoin (Verified Allergy, Mild, NAUSEA, 10/05/18) Home Medications Scheduled Alendronate Sodium (Alendronate Sodium), 70 MG PO WEEK, (Reported) Apixaban (Eliquis), 5 MG PO BID, (Reported) Aspirin (Aspirin EC), 81 MG PO HS, (Reported) Digoxin (Digoxin), 125 MCG PO DAILY, (Reported) Multivitamin (Multivitamin), 1 EACH PO DAILY, (Reported) Propranolol HCl (Propranolol HCl ER), 80 MG PO DAILY, (Reported) Rosuvastatin Calcium (Rosuvastatin Calcium), 40 MG PO HS, (Reported) Verapamil HCl (Verapamil Sr), 180 MG PO DAILY, (Reported) Scheduled PRN Acetaminophen (Tylenol Extra Strength), 500 MG PO Q6H PRN for PAIN-MILD, (Reported) Diclofenac Sodium (Diclofenac Sodium), 2 GM TP Q12H PRN for PAIN-BREAKTHROUGH, (Reported) Nitroglycerin (Nitroglycerin), 0.4 MG SL UD PRN for CHEST PAIN, (Reported) Ondansetron (Ondansetron Odt), 4 MG SL Q8H PRN for NAUSEA/VOMITING-1ST LINE, (Reported) Oxycodone HCl (Oxycodone HCl), 5 MG PO Q8H PRN for PAIN-SEVERE (8-10), (Reported) Polyethylene Glycol 3350 (Miralax), 17 GM PO DAILY PRN for CONSTIPATION-2ND LINE, (Reported) Discontinued Medications Atenolol (Atenolol), 50 MG PO BID, (Reported) Discontinued Reason: No Longer Taking Meloxicam (Meloxicam), 7.5 MG PO BID Discontinued Reason: No Longer Taking Pantoprazole Sodium (Pantoprazole Sodium), 40 MG PO DAILY@0700 Discontinued Reason: No Longer Taking Polyethylene Glycol 3350 (Miralax), 17 GM PO DAILY PRN for CONSTIPATION-2ND LINE, (Reported) Discontinued Reason: No Longer Taking Propranolol HCl (Inderal LA), 80 MG PO DAILY, (Reported) Discontinued Reason: No Longer Taking Simvastatin (Simvastatin), 40 MG PO HS, (Reported) Discontinued Reason: No Longer Taking Current Medications Current Medications Reviewed Review of Systems Constitutional: see HPI, weakness EENTM: no symptoms reported Respiratory: no symptoms reported Cardiovascular: no symptoms reported Gastrointestinal: no symptoms reported Genitourinary: no symptoms reported Musculoskeletal: back pain, joint pain, muscle pain, muscle stiffness, muscle cramps Skin: no symptoms reported Psychiatric/Neurological: No Symptoms Reported All Other Systems Reviewed Negative Unless Noted: Yes Physical Exam Physical Exam Vital Signs Capillary Refill : Height, Weight, BMI Height: 5'3.00" Weight: 149lbs. 9.0oz. 67.026623oz; 26.5 BMI Method: General Appearance: No Apparent Distress, WD/WN, Chronically ill Eyes: Bilateral Eye Normal Inspection, Bilateral Eye PERRL HEENT: PERRL/EOMI, Normal ENT Inspection, Pharynx Normal Neck: Full Range of Motion, Normal Inspection, Non Tender, Supple, Carotid Bruit Respiratory: Chest Non Tender, Lungs Clear, Normal Breath Sounds, No Accessory Muscle Use, No Respiratory Distress Cardiovascular: No Edema, No Gallop, No JVD, No Murmur, Normal Peripheral Pulses, Irregularly Irregular Gastrointestinal: Normal Bowel Sounds, No Organomegaly, No Pulsatile Mass, Non Tender, Soft Back: Normal Inspection, No CVA Tenderness, No Vertebral Tenderness Extremity: Normal Capillary Refill, Normal Inspection, Normal Range of Motion (legs due to pelvic fracture pain), Non Tender, No Calf Tenderness, No Pedal Edema Neurologic/Psychiatric: Alert, Oriented x3, No Motor/Sensory Deficits, Normal Mood/Affect, Abnormal Gait, Motor Weakness (lower extremities) Skin: Normal Color, Warm/Dry Lymphatic: No Adenopathy PM&R Medical Assessment & Plan REHAB/MEDICAL ASSESSMENT AND PLAN: REHAB IMPAIRMENT GROUP: Pelvic fracture ETIOLOGIC DIAGNOSIS: Pelvic fracture The comorbidities that impact the patients function and/or functional outcome by: advanced age, AF, s/p TAVR, orthostasis, pelvic pain REHAB PLAN: The patient is being admitted to our comprehensive inpatient rehabilitation facility and can tolerate the intensity of service consisting of at least: 180 minutes of therapy a day, 5 out of 7 days a week Rehab treatment will consist of: PT OT will focus on regaining function with use of AD in order to increase stamina and prevent falls and help offload pelvis to decrease pain The patient/family has a good understanding of our discharge process and will benefit from an interdisciplinary inpatient rehabilitation program. The patient has potential to make improvement and is in need of at least two of the following multidisciplinary therapies including but not limited to physical, occupational, speech, and prosthetics and orthotics. Additionally the patient will need services from respiratory, nutritional services, wound care, psychology, etc. (Customize this to each patient). Given the patients complex condition and risk of further medical complications, rehabilitation services cannot be safely or effectively provided at a lower level of care such as a alf facility. BARRIERS TO DISCHARGE: Advanced age ESTIMATED LOS: 10 days DISPOSITION: Home RELEVANT CHANGES SINCE PREADMISSION SCREENING: I have compared the patients medical and functional status at the time of the preadmission screening and there are: no changes PROGNOSIS: Good REHABILITATION GOALS: 1. PT OT will focus on regaining function with use of AD in order to increase stamina and prevent falls and help offload pelvis to decrease pain All the above goals were reviewed with the patient and he/she is in agreement. By signing this document, I acknowledge that I have personally performed a full physical examination on this patient within 24 hours of admission to this inpatient rehabilitation facility and have determined the patient to be able to tolerate the above course of treatment at an intensive level for a reasonable period of time. I will be completing a detailed individualized Plan of Care for this patient by day #4 of the patients stay based upon the Preadmission Screen, the Post-Admission Evaluation, and the therapy evaluations. Admission Dx/Comorbidities: (1) Pelvic fracture ICD Codes: S32.9XXA - Fracture of unspecified parts of lumbosacral spine and pelvis, initial encounter for closed fracture (2) GERD (gastroesophageal reflux disease) ICD Codes: K21.9 - Gastro-esophageal reflux disease without esophagitis (3) IBS (irritable bowel syndrome) ICD Codes: K58.9 - Irritable bowel syndrome without diarrhea (4) Pacemaker ICD Codes: Z95.0 - Presence of cardiac pacemaker (5) Osteoporosis ICD Codes: M81.0 - Age-related osteoporosis without current pathological fracture (6) History of coronary artery stent placement ICD Codes: Z95.5 - Presence of coronary angioplasty implant and graft (7) History of left hip replacement Status: Acute ICD Codes: Z96.642 - Presence of left artificial hip joint Assessment/Plan Assessment and Plan Assess & Plan/Chief Complaint Assessment: Pelvic fracture sustained in a fall with severe pain and debility Chronic lower leg edema Orthostasis causing slow recovery (it occurred after her hip revision in 2019) HTN HLP CAD on ASA GERD Osteoporosis Pacemaker AF on OAC post recent atrial ablation Aortic stenosis s/p TAVR repair OA Neuropathy Angina Thyroid nodule Nausea Plan: Pain control Rehab protocol Monitor BP Discontinue verapamil digoxin VANE KRISHNA DO Apr 21, 2022 17:25
[2022-04-21] MEDS ORDERED: ACETAMINOPHEN 325 MG TABLET PO PRN (17:30)
[2022-04-21] MEDS ORDERED: LACTULOSE SYRUP 10GM/15ML (ENULOSE) 30ML UDC PO PRN (17:30)
[2022-04-21] MEDS ORDERED: ALPRAZolam 0.25 MG (XANAX) TAB PO PRN (17:30)
[2022-04-21] MEDS ORDERED: LOPERAMIDE 2 MG (IMODIUM) TABLET PO PRN (17:30)
[2022-04-21] MEDS ORDERED: diphenhydrAMINE 25 MG TAB (BENADRYL) PO PRN (17:30)
[2022-04-21] MEDS ORDERED: ONDANSETRON 4 MG (ZOFRAN) ORAL DISSOLVE TAB PO PRN (17:30)
[2022-04-21] MEDS ORDERED: FLEET ENEMA ADULT 1 EA BTL PR PRN (17:30)
[2022-04-21] MEDS ORDERED: DOCUSATE SODIUM 100 MG (COLACE) CAP PO PRN (17:30)
[2022-04-21] MEDS ORDERED: MELATONIN 3 MG TABLET PO PRN (17:30)
[2022-04-21] MEDS ORDERED: CALCIUM CARBONATE 500 MG (TUMS) TAB.CHEW PO PRN (17:30)
[2022-04-21] MEDS ORDERED: BISACODYL 10 MG SUPP (DULCOLAX) PR PRN (17:30)
[2022-04-21] MEDS ORDERED: guaiFENesin/CODEINE (ROBITUSSIN AC) 10ML UDC PO PRN (17:30)
[2022-04-21] MEDS ORDERED: NITROGLYCERIN 0.4 MG SL TABS BTL 25'S SL PRN (19:15)
[2022-04-21] MEDS ORDERED: ONDANSETRON 4 MG (ZOFRAN) ORAL DISSOLVE TAB SL PRN (19:15)
[2022-04-21] MEDS ORDERED: HYDROcodone/APAP 5 MG/325 MG (LORTAB) TAB PO PRN (19:15)
[2022-04-21] MEDS ORDERED: NON-FORMULARY MEDICATION 1 EA EA (Alendronate Sodium 70 MG) PO SCH (19:15)
[2022-04-21] MEDS ORDERED: polyethylene glycoL POWDER 17 GM (MIRALAX) PACK PO PRN (19:15)
[2022-04-21 20:05] VITALS: BP 134/69
[2022-04-21] MEDS: polyethylene glycoL POWDER 17 GM (MIRALAX) PACK PO SCH (21:00)
[2022-04-21] MEDS: SENNA W/DOCUSATE (SENOKOT S) TABLET PO SCH (21:00)
[2022-04-21] MEDS ORDERED: NON-FORMULARY MEDICATION 1 EA EA (Rosuvastatin Calcium 40 MG) PO SCH (21:00)
[2022-04-21] MEDS: DOCUSATE SODIUM 100 MG (COLACE) CAP PO SCH (21:00)
[2022-04-21] MEDS: APIXABAN 5 MG (ELIQUIS) TABLET PO SCH (21:02)
[2022-04-21] MEDS: ASPIRIN E.C. 81 MG (ECOTRIN) TAB PO SCH (21:02)
[2022-04-21] MEDS: ROSUVASTATIN 20 MG (CRESTOR) TABLET PO SCH (21:02)
[2022-04-22 06:02] LABS: BASOPHILS % (AUTO) 0 % (0-10); EOSINOPHILS % (AUTO) 1 % (0-10); HEMATOCRIT 30 % (35-52); HEMOGLOBIN 9.4 g/dL (11.5-16.0); LYMPHOCYTES # (AUTO) 1.3 10^3/uL (1.0-4.0); LYMPHOCYTES % (AUTO) 16 % (12-44); MEAN CORPUSCULAR HEMOGLOBIN 29 pg (25-34); MEAN CORPUSCULAR HGB CONC 32 g/dL (32-36); MEAN CORPUSCULAR VOLUME 91 fL (80-99); MEAN PLATELET VOLUME 11.1 fL (9.0-12.2); MONOCYTES % (AUTO) 12 % (0-12); NEUTROPHILS # (AUTO) 5.6 10^3/uL (1.8-7.8); NEUTROPHILS % (AUTO) 70 % (42-75); PLATELET COUNT 136 10^3/uL (130-400)
[2022-04-22 06:12] LABS: ALBUMIN 3.3 GM/DL (3.2-4.5)
[2022-04-22 06:13] LABS: POTASSIUM 3.9 MMOL/L (3.6-5.0)
[2022-04-22 06:14] LABS: CALCIUM 8.8 MG/DL (8.5-10.1)
[2022-04-22 06:15] LABS: TOTAL PROTEIN 5.6 GM/DL (6.4-8.2)
[2022-04-22 06:17] LABS: BILIRUBIN,TOTAL 0.7 MG/DL (0.1-1.0)
[2022-04-22 06:19] LABS: CREATININE SERUM 0.77 MG/DL (0.60-1.30)
[2022-04-22] MEDS: MULTIVIT W/MINERALS TAB (THERAGRAN M) PO SCH (06:37)
[2022-04-22] MEDS: ACETAMINOPHEN 500 MG TAB (TYLENOL) PO PRN ×2 (06:37→20:08)
--- NOTE | 2022-04-22 06:44 | PM&R Progress Note ---
Subjective HPI/CC On Admission Date Seen by Provider: Apr 22, 2022 Time Seen by Provider: 12:00 Subjective/Events-last exam 04/22/2022: Patient doing really well Moving around better than she thought No orthostasis noted Bowels moved yesterday Pain controlled with Ultram and Tylenol Review of Systems General: Fatigue, Malaise Musculoskeletal: back pain Objective Exam Vital Signs Vital Signs Date Time Temp Pulse Resp B/P (MAP) Pulse Ox O2 Delivery O2 Flow Rate FiO2 04/22/22 09:00 Room Air 04/22/22 07:22 36.1 61 18 114/67 (83) 95 Capillary Refill : General Appearance: No Apparent Distress, WD/WN, Chronically ill HEENT: PERRL/EOMI, Normal ENT Inspection, Pharynx Normal Neck: Full Range of Motion, Normal Inspection, Non Tender, Supple, Carotid Bruit Respiratory: Chest Non Tender, Lungs Clear, Normal Breath Sounds, No Accessory Muscle Use, No Respiratory Distress Cardiovascular: No Edema, No Gallop, No JVD, No Murmur, Normal Peripheral Pulses, Irregularly Irregular Gastrointestinal: Normal Bowel Sounds, No Organomegaly, No Pulsatile Mass, Non Tender, Soft Back: Normal Inspection, No CVA Tenderness, No Vertebral Tenderness Extremity: Normal Capillary Refill, Normal Inspection, Normal Range of Motion (legs due to pelvic fracture pain), Non Tender, No Calf Tenderness, No Pedal Edema Neurologic/Psychiatric: Alert, Oriented x3, No Motor/Sensory Deficits, Normal Mood/Affect, Abnormal Gait, Motor Weakness (lower extremities) Skin: Normal Color, Warm/Dry Lymphatic: No Adenopathy Results/Procedures Lab Laboratory Tests 04/22/22 05:36 Patient resulted labs reviewed. FIM Transfers Therapy Code Descriptions/Definitions Functional [place] Measure: 0=Not Assessed/NA 4=Minimal Assistance 1=Total Assistance 5=Supervision or Setup 2=Maximal Assistance 6=Modified [place] 3=Moderate Assistance 7=Complete IndependenceSCALE: Activities may be completed with or without assistive devices. 5-Dqidhmluvd-boiyieb completes the activity by him/herself with no assistance from a helper. 5-Set-up or Clean-up Assistance-helper sets up or cleans up; patient completes activity. [place] assists only prior to or following the activity. 4-Supervision or Touching Assistance-helper provides verbal cues and/or touching/steadying and/or contact guard assistance as patient completes activity. Assistance may be provided throughout the activity or intermittently. 3-Partial/Moderate Assistance-helper does LESS THAN HALF the effort. [place] lifts, holds or supports trunk or limbs, but provides less than half the effort. 2-Substantial/Maximal Assistance-helper does MORE THAN HALF the effort. [place] lifts or holds trunk or limbs and provides more than half the effort. 9-Rgpozmurk-bmgkae does ALL the effort. Patient does none of the effort to complete the activity. Or, the assistance of 2 or more helpers is required for the patient to complete the activity. If activity was not attempted, code reason: 7-Patient Refused. 9-Not Applicable-not attempted and the patient did not perform the activity before the current illness, exacerbation or injury. 10-Not Attempted due to Environmental Limitations-(lack of equipment, weather restraints, etc.). 88-Not Attempted due to Medical Conditions or Safety Concerns. Assessment/Plan Assessment and Plan Assess & Plan/Chief Complaint Assessment: Pelvic fracture sustained in a fall with severe pain and debility Chronic lower leg edema Orthostasis causing slow recovery (it occurred after her hip revision in 2019) HTN HLP CAD on ASA GERD Osteoporosis Pacemaker AF on OAC Aortic stenosis s/p TAVR repair OA Neuropathy Angina Thyroid nodule Nausea Plan: Pain control Rehab protocol Monitor BP 04/22/2022: Pain control Supportive care (1) Pelvic fracture (2) GERD (gastroesophageal reflux disease) (3) IBS (irritable bowel syndrome) (4) Pacemaker (5) Osteoporosis (6) History of coronary artery stent placement (7) History of left hip replacement Status: VANE Weston DO Apr 22, 2022 06:44
[2022-04-22] MEDS ORDERED: VERAPAMIL SR 180 MG (CALAN SR) TAB PO SCH (07:00)
[2022-04-22 07:22] VITALS: BP 114/67
--- NOTE | 2022-04-22 08:16 | Physical Therapy Evaluation ---
PT Evaluation-General Medical Diagnosis Admission Date Apr 21, 2022 at 17:24 Medical Diagnosis: IMMOBILITY FROM PELVIC FX Onset Date: Apr 20, 2022 Therapy Diagnosis Therapy Diagnosis: Gait Deficit, Strength Deficit Height/Weight Height (Feet): 5 Height (Inches): 3.00 Weight (Pounds): 149 Weight (Ounces): 9.0 Precautions Precautions/Isolations: Fall Prevention, Standard Precautions Weight Bear Status Right Lower Extremity: Right Weight Bearing/Tolerated Left Lower Extremity: Left Weight Bearing/Tolerated Referral Physician: Dr. Stoddard Reason for Referral: Evaluation/Treatment Medical History Pertinent Medical History: Arthritis Reviewed History: Yes Social History Home: Single Level Current Living Status: Alone Entry Into Home: Ramp Prior Prior Level of Function SCALE: Activities may be completed with or without assistive devices. 1-Rkicyppdcc-dnxszlw completes the activity by him/herself with no assistance from a helper. 5-Set-up or Clean-up Assistance-helper sets up or cleans up; patient completes activity. [place] assists only prior to or following the activity. 4-Supervision or Touching Assistance-helper provides verbal cues and/or touching/steadying and/or contact guard assistance as patient completes activity. Assistance may be provided throughout the activity or intermittently. 3-Partial/Moderate Assistance-helper does LESS THAN HALF the effort. [place] lifts, holds or supports trunk or limbs, but provides less than half the effort. 2-Substantial/Maximal Assistance-helper does MORE THAN HALF the effort. [place] lifts or holds trunk or limbs and provides more than half the effort. 3-Kltfrpnzq-xwpplu does ALL the effort. Patient does none of the effort to complete the activity. Or, the assistance of 2 or more helpers is required for the patient to complete the activity. If activity was not attempted, code reason: 7-Patient Refused. 9-Not Applicable-not attempted and the patient did not perform the activity before the current illness, exacerbation or injury. 10-Not Attempted due to Environmental Limitations-(lack of equipment, weather restraints, etc.). 88-Not Attempted due to Medical Conditions or Safety Concerns. Bed Mobility: 6 Transfers (B,C,W/C): 6 Gait: 6 Stairs: 6 Indoor Mobility (Ambulation): Independent Stairs: Independent Prior Devices Use: None Reports she has 2 FWWs at home from previous surgeries, however has not used them since the surgeries. PT Evaluation-Current Subjective Patient lying supine in bed upon PT arrival, agreeable to treatment. Rates pain at rest at 0/10 and 6-7/10 with activity. Reports placing full weight through the right LE aggravates pain the most. Pain Section J - Health Conditions 1. Rarely or not at all 2. Occasionally 3. Frequently 4. Almost constantly 8. Unable to answer Pain Effect on Sleep: 1 Pain Interference with Therapy: 3 Pain Interference w/Day-to-Day: 2 Objective Patient Orientation: Person, Place, Time, Situation ROM/Strength ROM Lower Extremities Right Hip limited all planes; right knee and ankle WFLs all planes. Left LE WFLs all planes Strength Lower Extremities Right hip 2+/5 all planes, right knee 3+/5 all planes, ankle 4/5 all planes. Left LE 4/5 all planes Sensory Vision: Functional Hearing: Hearing Aid/Aides Sensation Right Lower Extremit: Intact Sensation Left Lower Extremity: Intact Transfers Roll Left & Right (QC): 4 Sit to Lying (QC): 4 Lying to Sitting/Side of Bed(Q: 4 Sit to Stand (QC): 5 Chair/Iph-mx-Ahirv Xfer(QC): 5 Toilet Transfer (QC): 5 Car Transfer (QC): 5 Gait Does the Patient Walk?: Yes Mode of Locomotion: Walk Anticipated Mode of Locomotion: Walk Walk 10 feet (QC): 5 Walk 50 ft with 2 Turns(QC): 4 Walk 150 ft (QC): 88 Walking 10ft/uneven surface-QC: 4 Distance: 120 feet Gait Assistive Device: FWW Wheelchair Training Does the Pt Use a Wheelchair?: No Wheel 50 ft with 2 turns (QC): 9 Wheel 150 ft (QC): 9 Stairs #of Steps: 0 1 Step (curb) (QC): 88 4 Steps (QC): 88 12 Steps (QC): 88 Balance Sitting Static: Normal Sitting Dynamic: Good Standing Static: Good Standing Dynamic: Fair Picking up an Object (QC): 5 Special Test Comments Patient used the cost reduction engineer and FWW to apple picker object. Assessment/Needs Patient tolerated treatment well. She demonstrates SBA/Setup for all bed mobility and transfers. Patient ambulates 120 feet with FWW, with SBA and minimal verbal cues for control of the FWW. She demonstrates a mild gait deficit with decreased stance time on the right LE, shortened right step length and shortened left stride length with increased stance time on the left LE. Patient in chair post treatment with all needs met, nursing notified and call light in reach. Rehab Potential: Good Equipment Needs unsure at this time as she has FWW at home. PT Correction Goals Parts Salesperson Goals PT Correction Goals Time Frame: May 06, 2022 Roll Left to Right (QC): 6 Sit to Lying (QC): 6 Lying-Sitting on Side/Bed(QC): 6 Sit to Stand (QC): 6 Chair/Gpm-bh-Yhstq Xfer(QC): 6 Toilet/Commode Transfer (QC): 6 Car Transfer (QC): 6 Does the Patient Walk: Yes Walk 10 feet (QC): 6 Walk 10ft-Uneven Surface(QC): 6 Walk 50ft with 2 Turns (QC): 6 Walk 150 ft (QC): 6 Does the Pt use WC or Scooter?: No Wheel 50 feet with 2 turns (QC: 9 Wheel 150 feet: 9 1 Step (curb) (QC): 4 4 Steps (QC): 3 12 Steps (QC): 9 Picking up an Object (QC): 6 PT Plan Problem List Problem List: Activity Tolerance, Functional Strength, Safety, Balance, Gait, Transfer, Bed Mobility, ROM Treatment/Plan Treatment Plan: Continue Plan of Care Treatment Plan: Bed Mobility, Education, Functional Activity Ney, Functional Strength, Gait, Safety, Therapeutic Exercise, Transfers Treatment Duration: May 13, 2022 Frequency: At least 5 of 7 days/Wk (IRF) Estimated Hrs Per Day: 1.5 hours per day Patient and/or Family Agrees t: Yes Safety Risks/Education Patient Education: Gait Training, Transfer Techniques Teaching Recipient: Patient Teaching Methods: Demonstration, Discussion Response to Teaching: Verbalize Understanding, Return Demonstration Time Time In: 746 Time Out: 811 DATE: Apr 22, 2022 Total Billed Treatment Time: 25 Total Billed Treatment Visit, Kd Espinoza JOHN A PT Apr 22, 2022 08:16
[2022-04-22] MEDS: APIXABAN 5 MG (ELIQUIS) TABLET PO SCH (08:42)
[2022-04-22] MEDS ORDERED: NON-FORMULARY MEDICATION 1 EA EA (Multivitamin 1 EACH) PO SCH (09:00)
[2022-04-22] MEDS ORDERED: DIGOXIN 0.125 MG (LANOXIN) TAB PO SCH (09:00)
[2022-04-22] MEDS ORDERED: VERAPAMIL HCL 180 MG PO SCH (09:00)
--- NOTE | 2022-04-22 10:01 | Occupational Therapy Eval ---
OT Evaluation-General/PLF Medical Diagnosis Admission Date Apr 21, 2022 at 17:24 Medical Diagnosis: IMMOBILITY FROM PELVIC FX Onset Date: Apr 20, 2022 Therapy Diagnosis Therapy Diagnosis: Weakness, decreased ADL skills Height/Weight Height (Feet): 5 Height (Inches): 3.00 Weight (Pounds): 149 Weight (Ounces): 9.0 Precautions Precautions/Isolations: Fall Prevention, Standard Precautions Weight Bear Status Weight Bearing Restriction: Weight Bearing/Tolerated Referral Physician: Dr. Stoddard Referral Reason: Activity Tolerance, Self Care, Evaluation/Treatment, Strengthening/ROM Medical History Pertinent Medical History: Arthritis, CAD Additional Medical History Coronary stent, pacemaker, valve replacement, bilateral knee replacements, left shoulder replacement, left hip. Current History Pt. got caught up in blankets at home and fell. Sustained a right superior rami fx and possible right inferior rami fx. Reviewed History: Yes Social History Home: Single Level Current Living Status: Alone Entry Into Home: Ramp Home is set up for disabled son. ADL-Prior Level of Function SCALE: Activities may be completed with or without assistive devices. 6-Aqdhehyaao-fcywgqn completes the activity by him/herself with no assistance from a helper. 5-Set-up or Clean-up Assistance-helper sets up or cleans up; patient completes activity. [place] assists only prior to or following the activity. 4-Supervision or Touching Assistance-helper provides verbal cues and/or touching/steadying and/or contact guard assistance as patient completes activity. Assistance may be provided throughout the activity or intermittently. 3-Partial/Moderate Assistance-helper does LESS THAN HALF the effort. [place] lifts, holds or supports trunk or limbs, but provides less than half the effort. 2-Substantial/Maximal Assistance-helper does MORE THAN HALF the effort. [place] lifts or holds trunk or limbs and provides more than half the effort. 7-Nspftwtib-nuigrx does ALL the effort. Patient does none of the effort to complete the activity. Or, the assistance of 2 or more helpers is required for the patient to complete the activity. If activity was not attempted, code reason: 7-Patient Refused. 9-Not Applicable-not attempted and the patient did not perform the activity before the current illness, exacerbation or injury. 10-Not Attempted due to Environmental Limitations-(lack of equipment, weather restraints, etc.). 88-Not Attempted due to Medical Conditions or Safety Concerns. ADL PLOF Comments Pt. was fully independent with daily skills. She does not use an assistive device but does have two walkers from previous hip surgery. Her son stays with her during the weekend days and requires some assistance. Self Care: Independent Functional Cognition: Independent DME/Equipment: Bath Bench, Grab Bars, Shower, Sock Aid, Tall Toilet DME/Equipment Comments Pt. has two walkers and a sock aide from prior hip surgery. Drive Self: Yes OT Current Status Subjective Pt. does not report pain when sitting, but does report pain (5/10) in stance. She does have some pain medication. She also reports nausea and some dizziness from pain during treatment, and requires multiple rest breaks. Mental Status/Objective Patient Orientation: Person, Place, Time, Situation Current Glasses/Contacts: Yes Upper Extremity ROM WFL. Pt. has replaced left shoulder, and states that right shoulder needs replaced. Demonstrates full ROM. ADL-Treatment Eating (QC): 6 Oral Hygiene (QC): 5 (Set up seated at sink.) Shower/Bathe Self (QC): 4 (Steadying assist in shower.) Upper Body Dressing (QC): 5 Lower Body Dressing (QC): 3 (Mod assist to doff/don underwear and pants over feet. CGA in stance to don over hips.) On/Off Footwear (QC): 2 Toileting Hygiene (QC): 3 (Min assist for balance.) Other Treatments Pt. seen this date for OT assessment and treatment. Pt. is a very pleasant 86 year old woman that presents after falling at home with pelvic fx. She is eager to participate. Pt. stands from chair in room with CGA. She is able to use a walker to ambulate to bathroom. Completes ADL tasks with the above mentioned assist. After ADLs she ambulates slowly with CGA to therapy gym. Pt. has had pain medication but does report nausea and some dizziness throughout. Multiple rest breaks given. OT educates pt. on and issues for use in the room some ADL equipment. This includes a LH sponge, sock aide, microsoft systems engineer, and dressing stick. Pt. practices these in the gym, and is able to doff/don her socks with SBA and v erbal cues for sequencing. PT comes in at this point to complete partial co- treatment, as pt. will be unable to fully participate in seperate treatments due to pain, nausea, and dizziness. Pt. works on standing at walker x 3 sit-stands and batting at balloon. PT facilitates balance, weight shifting, and endurance training while OT facilitates UE reach with dynamic posture change. Pt. is able to stand approximately 2-3 minutes at a time before needing a rest break. After this activity OT and PT alternated with pt working on UE exercises and LE exercises. Pt. tolerated 2lb. dumbbell x 5 exercises x 15 reps each while alternating with LE movement. Please see PT note for LE ability. Multiple rest breaks given throughout. Pt. up in gym with PT when OT left session. Education OT Patient Education: Correct positioning, Exercise program, Modified ADL techniques, Progress toward Goal/Update tx plan, Purpose of tx/functional activities, Reviewed precautions, Rehab process, Transfer techniques, Use of adapted equipment Teaching Recipient: Patient Teaching Methods: Demonstration, Discussion Response to Teaching: Verbalize Understanding, Return Demonstration BIMS CAM BIMS Expression of Ideas and Wants: Without Difficulty Understanding Verbal Content: Understands Brief Interview/Mental Status: Yes IRF EMILIA BIMS: IRF EMILIA BIMS Response (Comments) Value Repitition of Three Words Three 3 Recalls Socks Yes, No Cue Required 2 Recalls Blue Yes, No Cue Required 2 Recalls Bed Yes, No Cue Required 2 Year Correct 3 Month Accurate Within 5 Days 2 Day Correct 1 Total 15 Patient Normally Able to Recal: Current Session Should Staff Asses. Mental St.: No Memory/Recall Ability: Current Season CAM Mental Status Change/Baseline: 0 Inattention: 0 Disorganized thinkin Altered level of consciousness: 0 OT Intermediate Goals Intermediate Goals Time Frame: May 06, 2022 Acute change in mental status: 0 Inattention: 0 Disorganized thinkin Altered level of consciousness: 0 Eating (QC): 6 Oral Hygiene (QC): 6 Toileting Hygiene (QC): 6 Shower/Bathe Self (QC): 5 (With AE as needed.) Upper Body Dressing (QC): 6 Lower Body Dressing (QC): 6 (With AE as needed.) On/Off Footwear (QC): 6 (With AE as needed.) Additional Goals: 1-Demonstrate ADL Tasks, 2-Verbalize Understanding, 3- ImproveStrength/Ney 1=Demonstrate adherence to instructed precautions during ADL tasks. 2=Patient will verbalize/demonstrate understanding of assistive devices/modifications for ADL. 3=Patient will improve strength/tolerance for activity to enable patient to perform ADL's. OT Education/Plan Problem List/Assessment Assessment: Decreased Activ Tolerance, Decreased UE Strength, Dependent Transfe rs, Impaired I ADL's, Impaired Self-Care Skills Discharge Recommendations Plan/Recommendations: Continue POC Therapy Discharge Recommendati: Post Acute OT Equpiment Recommendations-D/C: Hip Kit Treatment Plan/Plan of Care Treatment,Training & Education: Yes Patient would benefit from OT for education, treatment and training to promote independence in ADL's, mobility, safety and/or upper extremity function for ADL's. Plan of Care: ADL Retraining, Functional Mobility, UE Funct Exercise/Act Treatment Duration: May 06, 2022 Frequency: At least 5 of 7 days/Wk (IRF) Rehab Potential: Good Time Start Time: 08:10 Stop Time: 09:40 DATE: Apr 22, 2022 Total Time Billed (hr/min): 90 Billed Treatment Time 5962-2353 1, EVM x 15minutes 1451-7282 ADL x 25minutes 1312-0516 Ex x 50minutes- Co-treatment with PT. Please see above note for designated roles. JA GAMEZ OT Apr 22, 2022 10:01
[2022-04-22] MEDS: DOCUSATE SODIUM 100 MG (COLACE) CAP PO SCH ×2 (10:03→20:10)
[2022-04-22] MEDS: SENNA W/DOCUSATE (SENOKOT S) TABLET PO SCH ×2 (10:03→20:10)
[2022-04-22] MEDS: polyethylene glycoL POWDER 17 GM (MIRALAX) PACK PO SCH ×2 (10:03→20:08)
[2022-04-22] MEDS: PROPRANOLOL ER 80 MG CAP (INDERAL LA) PO SCH (10:03)
[2022-04-22] MEDS ORDERED: METOCLOPRAMIDE 5 MG (REGLAN) TAB PO PRN (10:45)
[2022-04-22] MEDS ORDERED: PROCHLORPERAZINE 10 MG TAB (COMPAZINE) PO PRN (10:45)
--- NOTE | 2022-04-22 11:13 | Physical Therapy Daily Note ---
PT Daily Note-Current Subjective Pt sitting in Therapy Gym upon arrival. Pt agrees to PT/OT co-treat. Pain Location: Right Location Body Site: Hip Pain Description: Ache Comment: Reports pain and nausea w/use but doesn't rate Section J - Health Conditions 1. Rarely or not at all 2. Occasionally 3. Frequently 4. Almost constantly 8. Unable to answer Pain Effect on Sleep: 1 Pain Interference with Therapy: 3 Pain Interference w/Day-to-Day: 2 Mental Status Patient Orientation: Person, Place, Time, Situation Transfers SCALE: Activities may be completed with or without assistive devices. 6-Onvvseyhqs-uwkcxvl completes the activity by him/herself with no assistance from a helper. 5-Set-up or Clean-up Assistance-helper sets up or cleans up; patient completes activity. [place] assists only prior to or following the activity. 4-Supervision or Touching Assistance-helper provides verbal cues and/or touching/steadying and/or contact guard assistance as patient completes activity. Assistance may be provided throughout the activity or intermittently. 3-Partial/Moderate Assistance-helper does LESS THAN HALF the effort. [place] lifts, holds or supports trunk or limbs, but provides less than half the effort. 2-Substantial/Maximal Assistance-helper does MORE THAN HALF the effort. [place] lifts or holds trunk or limbs and provides more than half the effort. 2-Lbwqmfbxs-tqytrq does ALL the effort. Patient does none of the effort to complete the activity. Or, the assistance of 2 or more helpers is required for the patient to complete the activity. If activity was not attempted, code reason: 7-Patient Refused. 9-Not Applicable-not attempted and the patient did not perform the activity before the current illness, exacerbation or injury. 10-Not Attempted due to Environmental Limitations-(lack of equipment, weather restraints, etc.). 88-Not Attempted due to Medical Conditions or Safety Concerns. Sit to Stand (QC): 5 Weight Bearing Right Lower Extremity: Right Weight Bearing/Tolerated Left Lower Extremity: Left Weight Bearing/Tolerated Gait Training Does the Patient Walk?: Yes Distance: 100' Walk 10 feet (QC): 5 Walk 50 ft with 2 Turns(QC): 4 Gait Assistive Device: FWW Exercises Seated Therapy Exercises: Ankle pumps, Long arc quads, Hip flexion, Hip abd/add, Glut set Seated Reps: 15 Treatments PT & OT complete partial co-treatment, as pt. will be unable to fully participate in separate treatments due to pain, nausea, and dizziness. Pt. works on standing at walker x 3 sit-stands and batting at balloon. PT facilitates balance, weight shifting, and endurance training while OT facilitates UE reach with dynamic posture change. Pt. is able to stand approximately 2-3 minutes at a time before needing a rest break. After this activity OT and PT alternated with pt working on UE exercises and LE exercises. Pt. tolerated Seated EX of 15 reps. OT departs at this time. Pt takes RB before amb. in hallway and returning to room to rest in bed. All needs met, call light in hand. Assessment Current Status: Fair Progress Pain and nausea affect tx. Pt has to takes RB. PT Senior Solutions Consultant Goals Detention Goals PT Senior Solutions Consultant Goals Time Frame: May 06, 2022 Roll Left & Right (QC): 6 Sit to Lying (QC): 6 Lying-Sitting on Side/Bed(QC): 6 Sit to Stand (QC): 6 Chair/Jsz-mz-Izvhp Xfer(QC): 6 Toilet Transfer (QC): 6 Car Transfer (QC): 6 Does the Patient Walk: Yes Walk 10 feet (QC): 6 Walk 50ft with 2 Turns (QC): 6 Walk 150 ft (QC): 6 Walking 10ft on Uneven Surface: 6 1 Step (curb) (QC): 4 4 Steps (QC): 3 12 Steps (QC): 9 Picking up an Object (QC): 6 Does the Pt use WC or Scooter?: No Wheel 50 feet with 2 turns (QC: 9 Wheel 150 feet: 9 PT Plan Problem List Problem List: Activity Tolerance, Gait Treatment/Plan Treatment Plan: Continue Plan of Care Treatment Plan: Bed Mobility, Education, Functional Activity Ney, Functional Strength, Gait, Safety, Therapeutic Exercise, Transfers Treatment Duration: May 13, 2022 Frequency: At least 5 of 7 days/Wk (IRF) Estimated Hrs Per Day: 1.5 hours per day Patient and/or Family Agrees t: Yes Time Time In: 850 Time Out: 955 DATE: Apr 22, 2022 Total Billed Treatment Time: 65 Total Billed Treatment Co-treat w/OT for 40m (850-940) 1, EX x3 (45m) & FA (20m) ROSE MARIE TORRES CARPET JOURNEYMAN Apr 22, 2022 11:13
--- NOTE | 2022-04-22 14:50 | Individualized Plan of Care ---
Individualized Plan of Care Rehab Nursing IPOC Order Admission Date Apr 21, 2022 at 17:24 Current Orders Orders Admission Order(Inpt,Obs,Sdc) (04/21/22 17:20) Vital Signs: Per Unit Policy ( 08,16,00 (04/21/22 17:20) Pierre Valenzuela 09,21 (04/21/22 17:20) Sequential Compression Device (04/21/22 17:20) Service Support Representative-Inpt Rehab Con (04/21/22 17:20) Rehab Nursing Orders-Ipoc (04/21/22 17:20) Physical Therapy Rehab Orders (04/21/22 17:20) Occupational Therapy Rehab Ord (04/21/22 17:20) Speech Therapy Rehab Orders (04/21/22 17:20) Cbc With Automated Diff (04/22/22 06:00) Comprehensive Metabolic Panel (04/22/22 06:00) Precautions (Aru) (04/21/22 17:20) Weekly Weight WEEK (04/21/22 17:20) Rehab-Intensity Of Therapy (04/21/22 17:20) Alprazolam Tablet (Xanax Tablet) (04/21/22 17:30) Calcium Carbonate Chew Tablet (Antacid C (04/21/22 17:30) Diphenhydramine Tablet (Benadryl Tablet) (04/21/22 17:30) Docusate Sodium Capsule (Colace Capsule) (04/21/22 21:00) Docusate Sodium Capsule (Colace Capsule) (04/21/22 17:30) Bisacodyl Suppository (Dulcolax Supposit (04/21/22 17:30) Lactulose Oral Solution (Enulose Oral So (04/21/22 17:30) Na Phos/Na Biphos Enema (Fleet Enema Andrew (04/21/22 17:30) Guaifenesin/Codeine Syrup (Robitussin Ac (04/21/22 17:30) Loperamide Tablet (Imodium Tablet) (04/21/22 17:30) Melatonin Tablet (Melatonin Tablet) (04/21/22 17:30) Polyethylene Glycol Powder Pkt (Miralax (04/21/22 21:00) Ondansetron Oral Dissolve Tab (Zofran (04/21/22 17:30) Senna S Tablet (Senokot S Tablet) (04/21/22 21:00) Acetaminophen Tablet/Caplet (Tylenol T (04/21/22 17:30) Initiate Admission Nursing Pro .admission (04/21/22 17:20) General/Regular (04/21/22 Dinner) Transfer - Bed/Room/Location (04/21/22 17:23) Acetaminophen Tablet (Tylenol Tablet) (04/21/22 19:15) Apixaban Tablet (Eliquis Tablet) (04/21/22 21:00) Aspirin Enteric Coated Tablet (Ecotrin T (04/21/22 21:00) Diclofenac 1% Gel (Voltaren 1% Gel) (04/21/22 19:15) Digoxin Tablet (Lanoxin Tablet) (04/22/22 09:00) Nitroglycerin 0.4 Mg Btl 25's (Nitrostat (04/21/22 19:15) Ondansetron Oral Dissolve Tab (Zofran (04/21/22 19:15) Polyethylene Glycol Powder Pkt (Miralax (04/21/22 19:15) Propranolol Er Capsule (Inderal La) (04/22/22 09:00) (Nf) Alendronate Sodium (04/21/22 19:15) (Nf) Multivitamin (04/22/22 09:00) (Nf) Rosuvastatin Calcium (04/21/22 21:00) (Nf) Verapamil Hcl (Verapamil Sr) (04/22/22 09:00) Hydrocodone/Apap 5/325 Tablet (Lortab 5 (04/21/22 19:15) Tramadol Tablet (Ultram Tablet) (04/21/22 19:15) Therapeutic Multivitamin Tab (Vitamins, (04/22/22 07:00) Verapamil Sr Tablet (Isoptin Sr Tablet) (04/22/22 07:00) Rosuvastatin Tablet (Crestor Tablet) (04/21/22 21:00) Patient Visit (04/22/22 ) Pt Eval Moderate Complexity (04/22/22 ) Gait Training, Ea 15 Min (04/22/22 ) Patient Visit (04/22/22 ) Exercise Therap, Ea 15 Min (04/22/22 ) Functional Activities, Ea 15 (04/22/22 ) Metoclopramide Tablet (Reglan Tablet) (04/22/22 10:45) Prochlorperazine Tablet (Compazine Table (04/22/22 10:45) Apixaban Tablet (Eliquis Tablet) (04/22/22 21:00) Rehab Nursing Orders: Ongoing Assess. of Function Status, Bladder Management, Bladder Scan, Bladder Training, Bowel Management, Bowel Training, Disease M anagement & Educaiton, DVT Prophylaxis, Fall Prevention, Fluid/Electrolyte/Nutrition Mgmt, Infection Prevention, Medication Management & Education, Management of Risks & Complications, Management of Skin Intergrity, Nutrition Management, Pain Management, Patient/Family Support, Safety Management, Weight Bearing Precaution Intensity of Therapy to be met Patient to be seen: Min.3h per day/5 of 7d PT IPOC Problem List: Activity Tolerance, Gait Treatment Plan: Continue Plan of Care Bed Mobility, Education, Functional Activity Ney, Functional Strength, Gait, Safety, Therapeutic Exercise, Transfers Treatment Duration: May 13, 2022 Frequency: At least 5 of 7 days/Wk (IRF) Estimated Hrs Per Day: 1.5 hours per day OT IPOC Problems: Decreased Activ Tolerance, Decreased UE Strength, Dependent Transfers, Impaired I ADL's, Impaired Self-Care Skills OT Treatment, Training and Edu: Yes Plan of Care: ADL Retraining, Functional Mobility, UE Funct Exercise/Act Treatment Duration: May 06, 2022 Frequency: At least 5 of 7 days/Wk (IRF) Estimated Hrs Per Day: [address] IPOC Speech Therapy Treatment Plan: Discontinue ST Treatment Duration: Apr 22, 2022 Frequency: Modified Program (IRF) Estimated Hrs Per Day: Other Service Support Representative/Case Mgmt Service Support Representative/Case Managemen: Discharge Planning Dietitian/Operations Accountant Dietitian/Operations Accountant to monitor nutritional status and make changes and/or recommendations as needed and work with speech pathology on dietary upgrades as the occur. Physician IPOC Medical Issues being managed closely and that require the 24 hour availability of a physician: Recent pelvic fracture with recent atria ablation and pacemaker and CAD and TAVR history these issues place her at risk for increased decompensation from fall and pelvic fracture Medical Issues: Bowel/Bladder Function, DVT Prophylaxis, Falls Precautions, Fluid/Electrolyte/Nutrition Balance, Infection Protection, Pain Management, Weight Bearing Precautions Brief Synthesis of Preadmission Screen, Post-Admission Evaluation, and Therapy Evaluations: PT OT will focus on regaining function with use of AD in order to work through pain from pelvic fracture along with close monitoring of cardiac dysfunction and increasing stamina Medical Prognosis: Good Anticipated Length of Stay: 7 days VANE KRISHNA DO Apr 22, 2022 14:50
[2022-04-22 19:24] VITALS: BP 100/64
[2022-04-22] MEDS: APIXABAN 2.5 MG (ELIQUIS) TABLET PO SCH (20:08)
[2022-04-22] MEDS: ROSUVASTATIN 20 MG (CRESTOR) TABLET PO SCH (20:08)
[2022-04-22] MEDS: ASPIRIN E.C. 81 MG (ECOTRIN) TAB PO SCH (20:08)
[2022-04-23] MEDS: MULTIVIT W/MINERALS TAB (THERAGRAN M) PO SCH (06:51)
[2022-04-23 07:10] VITALS: BP 114/71
[2022-04-23] MEDS: PROPRANOLOL ER 80 MG CAP (INDERAL LA) PO SCH (07:59)
[2022-04-23] MEDS: APIXABAN 2.5 MG (ELIQUIS) TABLET PO SCH ×2 (07:59→20:22)
[2022-04-23] MEDS: DOCUSATE SODIUM 100 MG (COLACE) CAP PO SCH ×2 (08:00→20:17)
[2022-04-23] MEDS: SENNA W/DOCUSATE (SENOKOT S) TABLET PO SCH ×2 (08:01→20:17)
[2022-04-23] MEDS: polyethylene glycoL POWDER 17 GM (MIRALAX) PACK PO SCH ×2 (08:01→20:17)
--- NOTE | 2022-04-23 08:06 | PM&R Progress Note ---
Subjective HPI/CC On Admission Date Seen by Provider: Apr 23, 2022 Time Seen by Provider: 12:00 Subjective/Events-last exam 04/23/2022: Patient doing really well Pain is improved with Ultram and Tylenol No major concerns Bowels moving She wants Voltaren gel for her neck 04/22/2022: Patient doing really well Moving around better than she thought No orthostasis noted Bowels moved yesterday Pain controlled with Ultram and Tylenol Review of Systems General: Fatigue, Malaise Objective Exam Vital Signs Vital Signs Date Time Temp Pulse Resp B/P (MAP) Pulse Ox O2 Delivery O2 Flow Rate FiO2 04/23/22 09:42 Room Air 04/23/22 07:10 36.5 62 20 114/71 (85) 99 Capillary Refill : General Appearance: No Apparent Distress, WD/WN, Chronically ill HEENT: PERRL/EOMI, Normal ENT Inspection, Pharynx Normal Neck: Full Range of Motion, Normal Inspection, Non Tender, Supple, Carotid Bruit Respiratory: Chest Non Tender, Lungs Clear, Normal Breath Sounds, No Accessory Muscle Use, No Respiratory Distress Cardiovascular: No Edema, No Gallop, No JVD, No Murmur, Normal Peripheral Pulses, Irregularly Irregular Gastrointestinal: Normal Bowel Sounds, No Organomegaly, No Pulsatile Mass, Non Tender, Soft Back: Normal Inspection, No CVA Tenderness, No Vertebral Tenderness Extremity: Normal Capillary Refill, Normal Inspection, Normal Range of Motion (legs due to pelvic fracture pain), Non Tender, No Calf Tenderness, No Pedal Edema Neurologic/Psychiatric: Alert, Oriented x3, No Motor/Sensory Deficits, Normal Mood/Affect, Abnormal Gait, Motor Weakness (lower extremities) Skin: Normal Color, Warm/Dry Lymphatic: No Adenopathy Results/Procedures Lab Patient resulted labs reviewed. FIM Transfers Therapy Code Descriptions/Definitions Functional [place] Measure: 0=Not Assessed/NA 4=Minimal Assistance 1=Total Assistance 5=Supervision or Setup 2=Maximal Assistance 6=Modified [place] 3=Moderate Assistance 7=Complete IndependenceSCALE: Activities may be completed with or without assistive devices. 7-Lyqgxctzcl-zwrohif completes the activity by him/herself with no assistance from a helper. 5-Set-up or Clean-up Assistance-helper sets up or cleans up; patient completes activity. [place] assists only prior to or following the activity. 4-Supervision or Touching Assistance-helper provides verbal cues and/or touching/steadying and/or contact guard assistance as patient completes activity. Assistance may be provided throughout the activity or intermittently. 3-Partial/Moderate Assistance-helper does LESS THAN HALF the effort. [place] lifts, holds or supports trunk or limbs, but provides less than half the effort. 2-Substantial/Maximal Assistance-helper does MORE THAN HALF the effort. [place] lifts or holds trunk or limbs and provides more than half the effort. 3-Myzqjljub-uvhopr does ALL the effort. Patient does none of the effort to complete the activity. Or, the assistance of 2 or more helpers is required for the patient to complete the activity. If activity was not attempted, code reason: 7-Patient Refused. 9-Not Applicable-not attempted and the patient did not perform the activity bef ore the current illness, exacerbation or injury. 10-Not Attempted due to Environmental Limitations-(lack of equipment, weather r estraints, etc.). 88-Not Attempted due to Medical Conditions or Safety Concerns. Roll Left to Right (QC): 4 Sit to Lying (QC): 4 Sit to Stand (QC): 5 Chair/Mcf-pg-Luoge Xfer(QC): 5 Car Transfer (QC): 5 Gait Training Does the Patient Walk?: Yes Distance: 100' Walk 10 feet (QC): 5 Walk 50 ft with 2 Turns(QC): 4 Walk 150 ft (QC): 88 Walking 10ft/uneven surface-QC: 4 Gait Assistive Device: FWW Wheelchair Training Does the Pt Use a Wheelchair?: No Wheel 50 ft with 2 turns (QC): 9 Wheel 150 ft (QC): 9 Stair Training #of Steps: 0 1 Step (curb) (QC): 88 4 Steps (QC): 88 12 Steps (QC): 88 Balance Picking up an Object (QC): 5 ADL-Treatment Eating (QC): 6 Oral Hygiene (QC): 5 (Set up seated at sink.) Shower/Bathe Self (QC): 4 (Steadying assist in shower.) Upper Body Dressing (QC): 5 Lower Body Dressing (QC): 3 (Mod assist to doff/don underwear and pants over feet. CGA in stance to don over hips.) On/Off Footwear (QC): 2 Toileting Hygiene (QC): 3 (Min assist for balance.) Assessment/Plan Assessment and Plan Assess & Plan/Chief Complaint Assessment: Pelvic fracture sustained in a fall with severe pain and debility Chronic lower leg edema Orthostasis causing slow recovery (it occurred after her hip revision in 2019) HTN HLP CAD on ASA GERD Osteoporosis Pacemaker AF on OAC Aortic stenosis s/p TAVR repair OA Neuropathy Angina Thyroid nodule Nausea Plan: Pain control Rehab protocol Monitor BP 04/22/2022: Pain control Supportive care 04/23/2022: Voltaren gel for neck pain (1) Pelvic fracture (2) GERD (gastroesophageal reflux disease) (3) IBS (irritable bowel syndrome) (4) Pacemaker (5) Osteoporosis (6) History of coronary artery stent placement (7) History of left hip replacement Status: Acute VANE KRISHNA DO Apr 23, 2022 08:06
[2022-04-23] MEDS: ACETAMINOPHEN 500 MG TAB (TYLENOL) PO PRN ×2 (09:56→16:35)
[2022-04-23] MEDS: DICLOFENAC 1% GEL 100 GM (VOLTAREN) TUBE TOP SCH ×2 (11:58→20:23)
[2022-04-23 19:53] VITALS: BP 156/74
[2022-04-23] MEDS: ROSUVASTATIN 20 MG (CRESTOR) TABLET PO SCH (20:21)
[2022-04-23] MEDS: ASPIRIN E.C. 81 MG (ECOTRIN) TAB PO SCH (20:21)
--- NOTE | 2022-04-24 05:18 | PM&R Progress Note ---
Subjective HPI/CC On Admission Date Seen by Provider: Apr 24, 2022 Time Seen by Provider: 08:30 Subjective/Events-last exam 04/24/2022: Doing well APAP is about all she is taking for the pain No major issues 04/23/2022: Patient doing really well Pain is improved with Ultram and Tylenol No major concerns Bowels moving She wants Voltaren gel for her neck 04/22/2022: Patient doing really well Moving around better than she thought No orthostasis noted Bowels moved yesterday Pain controlled with Ultram and Tylenol Review of Systems General: Fatigue, Malaise Musculoskeletal: leg pain Objective Exam Vital Signs Vital Signs Date Time Temp Pulse Resp B/P (MAP) Pulse Ox O2 Delivery O2 Flow Rate FiO2 04/24/22 21:20 100 Room Air 04/24/22 19:40 36.6 71 16 127/75 (92) Capillary Refill : General Appearance: No Apparent Distress, WD/WN, Chronically ill HEENT: PERRL/EOMI, Normal ENT Inspection, Pharynx Normal Neck: Full Range of Motion, Normal Inspection, Non Tender, Supple, Carotid Bruit Respiratory: Chest Non Tender, Lungs Clear, Normal Breath Sounds, No Accessory Muscle Use, No Respiratory Distress Cardiovascular: No Edema, No Gallop, No JVD, No Murmur, Normal Peripheral Pulses, Irregularly Irregular Gastrointestinal: Normal Bowel Sounds, No Organomegaly, No Pulsatile Mass, Non Tender, Soft Back: Normal Inspection, No CVA Tenderness, No Vertebral Tenderness Extremity: Normal Capillary Refill, Normal Inspection, Normal Range of Motion (legs due to pelvic fracture pain), Non Tender, No Calf Tenderness, No Pedal Ed mari Neurologic/Psychiatric: Alert, Oriented x3, No Motor/Sensory Deficits, Normal Mood/Affect, Abnormal Gait, Motor Weakness (lower extremities) Skin: Normal Color, Warm/Dry Lymphatic: No Adenopathy Results/Procedures Lab Patient resulted labs reviewed. FIM Transfers Therapy Code Descriptions/Definitions Functional [place] Measure: 0=Not Assessed/NA 4=Minimal Assistance 1=Total Assistance 5=Supervision or Setup 2=Maximal Assistance 6=Modified [place] 3=Moderate Assistance 7=Complete IndependenceSCALE: Activities may be completed with or without assistive devices. 5-Joovhiikyh-dgjruyu completes the activity by him/herself with no assistance from a helper. 5-Set-up or Clean-up Assistance-helper sets up or cleans up; patient completes activity. [place] assists only prior to or following the activity. 4-Supervision or Touching Assistance-helper provides verbal cues and/or touching/steadying and/or contact guard assistance as patient completes activity. Assistance may be provided throughout the activity or intermittently. 3-Partial/Moderate Assistance-helper does LESS THAN HALF the effort. [place] lifts, holds or supports trunk or limbs, but provides less than half the effort. 2-Substantial/Maximal Assistance-helper does MORE THAN HALF the effort. [place] lifts or holds trunk or limbs and provides more than half the effort. 3-Nyuhthadj-gviaka does ALL the effort. Patient does none of the effort to com plete the activity. Or, the assistance of 2 or more helpers is required for the patient to complete the activity. If activity was not attempted, code reason: 7-Patient Refused. 9-Not Applicable-not attempted and the patient did not perform the activity before the current illness, exacerbation or injury. 10-Not Attempted due to Environmental Limitations-(lack of equipment, weather restraints, etc.). 88-Not Attempted due to Medical Conditions or Safety Concerns. Roll Left to Right (QC): 4 Sit to Lying (QC): 4 Sit to Stand (QC): 5 Chair/Yzw-fb-Qrpzt Xfer(QC): 5 Car Transfer (QC): 5 Gait Training Does the Patient Walk?: Yes Distance: 100' Walk 10 feet (QC): 5 Walk 50 ft with 2 Turns(QC): 4 Walk 150 ft (QC): 88 Walking 10ft/uneven surface-QC: 4 Gait Assistive Device: FWW Wheelchair Training Does the Pt Use a Wheelchair?: No Wheel 50 ft with 2 turns (QC): 9 Wheel 150 ft (QC): 9 Stair Training #of Steps: 0 1 Step (curb) (QC): 88 4 Steps (QC): 88 12 Steps (QC): 88 Balance Picking up an Object (QC): 5 ADL-Treatment Eating (QC): 6 Oral Hygiene (QC): 5 (Set up seated at sink.) Shower/Bathe Self (QC): 4 (Steadying assist in shower.) Upper Body Dressing (QC): 5 Lower Body Dressing (QC): 3 (Mod assist to doff/don underwear and pants over feet. CGA in stance to don over hips.) On/Off Footwear (QC): 2 Toileting Hygiene (QC): 3 (Min assist for balance.) Assessment/Plan Assessment and Plan Assess & Plan/Chief Complaint Assessment: Pelvic fracture sustained in a fall with severe pain and debility Chronic lower leg edema Orthostasis causing slow recovery (it occurred after her hip revision in 2019) HTN HLP CAD on ASA GERD Osteoporosis Pacemaker AF on OAC Aortic stenosis s/p TAVR repair OA Neuropathy Angina Thyroid nodule Nausea Plan: Pain control Rehab protocol Monitor BP 04/22/2022: Pain control Supportive care 04/23/2022: Voltaren gel for neck pain 04/24/2022: Monitor pain (1) Pelvic fracture (2) GERD (gastroesophageal reflux disease) (3) IBS (irritable bowel syndrome) (4) Pacemaker (5) Osteoporosis (6) History of coronary artery stent placement (7) History of left hip replacement Status: Acute VANE KRISHNA DO Apr 24, 2022 05:18
[2022-04-24] MEDS: MULTIVIT W/MINERALS TAB (THERAGRAN M) PO SCH (06:15)
[2022-04-24] MEDS: polyethylene glycoL POWDER 17 GM (MIRALAX) PACK PO SCH ×2 (07:41→21:30)
[2022-04-24 07:42] VITALS: BP 134/61
[2022-04-24] MEDS: SENNA W/DOCUSATE (SENOKOT S) TABLET PO SCH ×2 (07:42→21:30)
[2022-04-24] MEDS: PROPRANOLOL ER 80 MG CAP (INDERAL LA) PO SCH (07:52)
[2022-04-24] MEDS: APIXABAN 2.5 MG (ELIQUIS) TABLET PO SCH ×2 (07:52→21:42)
[2022-04-24] MEDS: ACETAMINOPHEN 500 MG TAB (TYLENOL) PO PRN ×2 (07:52→13:40)
[2022-04-24] MEDS: DOCUSATE SODIUM 100 MG (COLACE) CAP PO SCH ×2 (07:53→21:30)
[2022-04-24] MEDS: DICLOFENAC 1% GEL 100 GM (VOLTAREN) TUBE TOP SCH ×2 (07:54→21:41)
--- NOTE | 2022-04-24 10:27 | ST Cognitive Linguistic Eval ---
Speech Evaluation-General Medical Diagnosis Pelvic Fracture Onset Date: Apr 20, 2022 Therapy Diagnosis Therapy Diagnosis: Intact (Baseline) Cognition Precautions Precautions: Fall Precautions/Isolations: Fall Prevention, Standard Precautions Referral Referring Physician: Dr. Stoddard Reason for Referral: Evaluation/Treatment Medical History Pertinent Medical History: Arthritis, CAD Reviewed History: Yes Social History Current Living Status: Alone Speech PLF-Current Status Prior Level of Function The patient denied difficulties or concerns with her speech, language, or cognition. Subjective The patient was seated upright in her recliner, awake and alert, upon entrance to her room by the clinician. The patient greeted the clinician appropriately and was agreeable to participation in the cognitive linguistic assessment. Language Eval: Auditory Comprehends Simple Yes/No Ques: Functional Indent/Objects Multiple Tao: Functional Follows 1-Step Commands: Functional Follows General Conversations: Functional Language Eval: Verbal Language Completes Spontaneous Greeting: Functional Produces Auto, Serial Info: Functional Word Finding: Functional Requests Basic Needs: Functional States Basic Personal Info: Functional Expresses Complex Ideas: Functional Language Evaluation: Reading Follows Simple Written Direct: Functional Language Evaluation: Writing Writes to Simple Dictation: Functional Cognitive Patient Orientation The patient was independently oriented to self, location, month, day of the week, date, and year. Objective Cognitive Domain Attention: WNL Memory: WNL Problem Solving: Functional Executive Functions: WNL Visuospatial Skills: WNL Composite Severity Rating: WNL Clock Drawing Severity Rating: WNL Objective Formal/Standardized Tests [facility] Mental Status Exam (UMS) Results The patient demonstrated a result of +28/30 on the SLUMS correlating to a cognitive linguistic score within normal limits. Oral Motor/Speech Production The patient does not display dysarthria or apraxia of speech. The patient is 100% intelligible in known and unknown contexts. Impression The patient demonstrated intact and baseline cognitive linguistic skills. Speech-Plan Treatment Plan Speech Therapy Treatment Plan: Discontinue ST Treatment Duration: Apr 24, 2022 Frequency: 1 time per week Estimated Hrs Per Day: .25 hour per day Rehab Potential: Good Pt/Family Agrees to Plan: Yes Safety Risks/Education Teaching Recipient: Patient Teaching Methods: Discussion Response to Teaching: Verbalize Understanding Education Topics Provided: Results, Recommendations, Plan of Care Time Speech Therapy Time In: 09:30 Speech Therapy Time Out: 09:50 DATE: Apr 24, 2022 Total Billed Time: 20 Billed Treatment Time 1, SPSNDCOMP, MIK ANDERSON Apr 24, 2022 10:27
--- NOTE | 2022-04-24 10:58 | Progress Note ---
JOSE ANGEL REYNOLDS 04/24/22 1058: Progress Note Patient is in good spirits Very good mobility Ambulating well with assistance of walker Pain is 5/10 walking which is an improvement Reports being lightheaded upon standing and continuous walking Voiding fine and bowel movements are regular YARELI KRISHNA DO 04/25/22 0517: Supervisory-Addendum Brief Verification & Attestation Participated in pt care: history, MDM, physical Personally performed: exam, history, MDM, supervision of care Care discussed with: Medical Student Procedures: n/a Results interpretation: Verified all documentation Verification and Attestation of Medical Student E/M Service A medical student performed and documented this service in my presence. I reviewed and verified all information documented by the medical student and made modifications to such information, when appropriate. I personally performed the physical exam and medical decision making. Yareli Krishna, Apr 25, 2022,05:17 JOSE ANGEL REYNOLDS Apr 24, 2022 10:58 YARELI KRISHNA DO Apr 25, 2022 05:17
--- NOTE | 2022-04-24 11:01 | Occupational Ther Daily Note ---
OT Current Status-Daily Note Subjective Pt alert, sitting in recliner. Pt agrees to therapy. No c/o pain. Mental Status/Objective Patient Orientation: Person, Place, Time, Situation ADL-Treatment Pt agrees to shower. SBA for all transfers using FWW. Independent for toileting using FWW. Sitting on shower bench,100% of the time, pt completes shower independently using grabbars, hand held shower and LH sponge. Standing at sink, pt complete oral care independently. Set up for upper body dressing. SBA for lower body dressing. Education on sock aide, able to don IRVIN hose with it after set up, independent with regular socks. Standing at sink, pt complete oral care independently. After therapy, pt sitting in recliner with call light/phone in reach. All needs met in reach. Therapy Code Descriptions/Definitions Functional [place] Measure: 0=Not Assessed/NA 4=Minimal Assistance 1=Total Assistance 5=Supervision or Setup 2=Maximal Assistance 6=Modified [place] 3=Moderate Assistance 7=Complete IndependenceSCALE: Activities may be completed with or without assistive devices. 2-Rhfssowhbc-gybddjb completes the activity by him/herself with no assistance from a helper. 5-Set-up or Clean-up Assistance-helper sets up or cleans up; patient completes activity. [place] assists only prior to or following the activity. 4-Supervision or Touching Assistance-helper provides verbal cues and/or touching/steadying and/or contact guard assistance as patient completes activity. Assistance may be provided throughout the activity or intermittently. 3-Partial/Moderate Assistance-helper does LESS THAN HALF the effort. [place] lifts, holds or supports trunk or limbs, but provides less than half the effort. 2-Substantial/Maximal Assistance-helper does MORE THAN HALF the effort. [place] lifts or holds trunk or limbs and provides more than half the effort. 4-Bzpxoidax-wnpzqx does ALL the effort. Patient does none of the effort to complete the activity. Or, the assistance of 2 or more helpers is required for the patient to complete the activity. If activity was not attempted, code reason: 7-Patient Refused. 9-Not Applicable-not attempted and the patient did not perform the activity before the current illness, exacerbation or injury. 10-Not Attempted due to Environmental Limitations-(lack of equipment, weather restraints, etc.). 88-Not Attempted due to Medical Conditions or Safety Concerns. Oral Hygiene (QC): 6 Shower/Bathe Self (QC): 6 Upper Body Dressing (QC): 5 Lower Body Dressing (QC): 4 On/Off Footwear: 4 Toileting Hygiene (QC): 6 Toilet Transfer (QC): 6 OT Tire Finisher Goals Tire Finisher Goals Time Frame: May 06, 2022 Acute change in mental status: 0 Inattention: 0 Disorganized thinkin Altered level of consciousness: 0 Eating (QC): 6 Oral Hygiene (QC): 6 Toileting Hygiene (QC): 6 Shower/Bathe Self (QC): 5 (With AE as needed.) Upper Body Dressing (QC): 6 Lower Body Dressing (QC): 6 (With AE as needed.) On/Off Footwear (QC): 6 (With AE as needed.) Additional Goals: 1-Demonstrate ADL Tasks, 2-Verbalize Understanding, 3- ImproveStrength/Ney 1=Demonstrate adherence to instructed precautions during ADL tasks. 2=Patient will verbalize/demonstrate understanding of assistive devices/modifications for ADL. 3=Patient will improve strength/tolerance for activity to enable patient to perform ADL's. OT Education/Plan Problem List/Assessment Assessment: Decreased Activ Tolerance, Impaired Self-Care Skills Discharge Recommendations Plan/Recommendations: Continue POC Treatment Plan/Plan of Care Patient would benefit from OT for education, treatment and training to promote independence in ADL's, mobility, safety and/or upper extremity function for ADL's. Plan of Care: ADL Retraining, Functional Mobility, UE Funct Exercise/Act Treatment Duration: May 06, 2022 Frequency: At least 5 of 7 days/Wk (IRF) Estimated Hrs Per Day: 1 hour per day Rehab Potential: Good Time Start Time: 10:00 Stop Time: 11:00 DATE: Apr 24, 2022 Total Time Billed (hr/min): 60 Billed Treatment Time 1 visit-ADL 4 (60 min) KELLEY SILVER Apr 24, 2022 11:01
--- NOTE | 2022-04-24 12:04 | Physical Therapy Daily Note ---
PT Daily Note-Current Subjective Pt laying Supine in bed upon arrival. Pt asks to use BR before starting tx. Pain Numeric Pain Scale: 6 Location: Right Location Body Site: Pelvic Pain Description: Ache Section J - Health Conditions 1. Rarely or not at all 2. Occasionally 3. Frequently 4. Almost constantly 8. Unable to answer Pain Effect on Sleep: 1 Pain Interference with Therapy: 3 Pain Interference w/Day-to-Day: 2 Mental Status Patient Orientation: Person, Place, Time, Situation Transfers SCALE: Activities may be completed with or without assistive devices. 3-Ubzfraadzl-swwahyh completes the activity by him/herself with no assistance from a helper. 5-Set-up or Clean-up Assistance-helper sets up or cleans up; patient completes activity. [place] assists only prior to or following the activity. 4-Supervision or Touching Assistance-helper provides verbal cues and/or touching/steadying and/or contact guard assistance as patient completes activity. Assistance may be provided throughout the activity or intermittently. 3-Partial/Moderate Assistance-helper does LESS THAN HALF the effort. [place] l ifts, holds or supports trunk or limbs, but provides less than half the effort. 2-Substantial/Maximal Assistance-helper does MORE THAN HALF the effort. [place] lifts or holds trunk or limbs and provides more than half the effort. 5-Zgzoymnoe-efsmtg does ALL the effort. Patient does none of the effort to complete the activity. Or, the assistance of 2 or more helpers is required for t he patient to complete the activity. If activity was not attempted, code reason: 7-Patient Refused. 9-Not Applicable-not attempted and the patient did not perform the activity before the current illness, exacerbation or injury. 10-Not Attempted due to Environmental Limitations-(lack of equipment, weather restraints, etc.). 88-Not Attempted due to Medical Conditions or Safety Concerns. Lying to Sitting/Side of Bed(Q: 5 Sit to Stand (QC): 5 Toilet Transfer (QC): 5 Weight Bearing Right Lower Extremity: Right Weight Bearing/Tolerated Left Lower Extremity: Left Weight Bearing/Tolerated Gait Training Does the Patient Walk?: Yes Distance: 100', 175', 100' Walk 10 feet (QC): 5 Walk 50 ft with 2 Turns(QC): 5 Walk 150 ft (QC): 5 Gait Assistive Device: FWW Wheelchair Training Does the Pt Use a Wheelchair?: No Exercises Seated Therapy Exercises: Ankle pumps, Long arc quads, Hip flexion, Glut set Seated Reps: 15 NuStep Minutes: 15 NuStep Workload: 4 Treatments TF from Supine to EOB to Standing & amb. to BR. After toileting, pt amb. in hallway & took RB as needed for fatigue. Pt completes Seated Ex and amb. in hallway before returning to room. Pt resting in recliner at end of tx. All needs met, call light in hand. Assessment Current Status: Good Progress Pt is improving with longer distance amb., farther distance before nausea and decreased pain. PT Dry Primer Powder Blender Goals Dry Primer Powder Blender Goals PT Dry Primer Powder Blender Goals Time Frame: May 06, 2022 Roll Left & Right (QC): 6 Sit to Lying (QC): 6 Lying-Sitting on Side/Bed(QC): 6 Sit to Stand (QC): 6 Chair/Dji-vx-Plohs Xfer(QC): 6 Toilet Transfer (QC): 6 Car Transfer (QC): 6 Does the Patient Walk: Yes Walk 10 feet (QC): 6 Walk 50ft with 2 Turns (QC): 6 Walk 150 ft (QC): 6 Walking 10ft on Uneven Surface: 6 1 Step (curb) (QC): 4 4 Steps (QC): 3 12 Steps (QC): 9 Picking up an Object (QC): 6 Does the Pt use WC or Scooter?: No Wheel 50 feet with 2 turns (QC: 9 Wheel 150 feet: 9 PT Plan Problem List Problem List: Activity Tolerance Treatment/Plan Treatment Plan: Continue Plan of Care Treatment Plan: Bed Mobility, Education, Functional Activity Ney, Functional Strength, Gait, Safety, Therapeutic Exercise, Transfers Treatment Duration: May 13, 2022 Frequency: At least 5 of 7 days/Wk (IRF) Estimated Hrs Per Day: 1.5 hours per day Patient and/or Family Agrees t: Yes Safety Risks/Education Patient Education: Gait Training, Correct Positioning Teaching Recipient: Patient Teaching Methods: Discussion Response to Teaching: Verbalize Understanding Time Time In: 800 Time Out: 900 DATE: Apr 24, 2022 Total Billed Treatment Time: 60 Total Billed Treatment 1, GT x2 (30m), FA (15m) & EX (15m) [facility] PUNCH OPERATOR Apr 24, 2022 12:04
--- NOTE | 2022-04-24 14:18 | Occupational Ther Daily Note ---
OT Current Status-Daily Note Subjective Pt alert, sitting in recliner. Pt agrees to therapy. No c/o pain. Pt is excited on how well she is doing. Mental Status/Objective Patient Orientation: Person, Place, Time, Situation ADL-Treatment Therapy Code Descriptions/Definitions Functional [place] Measure: 0=Not Assessed/NA 4=Minimal Assistance 1=Total Assistance 5=Supervision or Setup 2=Maximal Assistance 6=Modified [place] 3=Moderate Assistance 7=Complete IndependenceSCALE: Activities may be completed with or without assistive devices. 6-Umziylwtkt-xcgwsdm completes the activity by him/herself with no assistance from a helper. 5-Set-up or Clean-up Assistance-helper sets up or cleans up; patient completes activity. [place] assists only prior to or following the activity. 4-Supervision or Touching Assistance-helper provides verbal cues and/or touching/steadying and/or contact guard assistance as patient completes activity. Assistance may be provided throughout the activity or intermittently. 3-Partial/Moderate Assistance-helper does LESS THAN HALF the effort. [place] lifts, holds or supports trunk or limbs, but provides less than half the effort. 2-Substantial/Maximal Assistance-helper does MORE THAN HALF the effort. [place] lifts or holds trunk or limbs and provides more than half the effort. 8-Pjxinbtnt-bofoso does ALL the effort. Patient does none of the effort to complete the activity. Or, the assistance of 2 or more helpers is required for the patient to complete the activity. If activity was not attempted, code reason: 7-Patient Refused. 9-Not Applicable-not attempted and the patient did not perform the activity before the current illness, exacerbation or injury. 10-Not Attempted due to Environmental Limitations-(lack of equipment, weather restraints, etc.). 88-Not Attempted due to Medical Conditions or Safety Concerns. Other Treatment Pt given light resistance theraband and HEP. Skilled instruction required for correct technique and modifications when needed. 6 exercises 2 sets 10 reps for all but shldr abd/add 1 set 5 reps due to shldr arthritis. After session, pt sitting in recliner with call light/phone in reach. All needs met in room. OT Administrative Specialist Goals Snf Goals Time Frame: May 06, 2022 Acute change in mental status: 0 Inattention: 0 Disorganized thinkin Altered level of consciousness: 0 Eating (QC): 6 Oral Hygiene (QC): 6 Toileting Hygiene (QC): 6 Shower/Bathe Self (QC): 5 (With AE as needed.) Upper Body Dressing (QC): 6 Lower Body Dressing (QC): 6 (With AE as needed.) On/Off Footwear (QC): 6 (With AE as needed.) Additional Goals: 1-Demonstrate ADL Tasks, 2-Verbalize Understanding, 3-ImproveStrength/Ney 1=Demonstrate adherence to instructed precautions during ADL tasks. 2=Patient will verbalize/demonstrate understanding of assistive devices/modifications for ADL. 3=Patient will improve strength/tolerance for activity to enable patient to per form ADL's. OT Education/Plan Problem List/Assessment Assessment: Decreased Activ Tolerance, Decreased UE Strength Discharge Recommendations Plan/Recommendations: Continue POC Treatment Plan/Plan of Care Patient would benefit from OT for education, treatment and training to promote independence in ADL's, mobility, safety and/or upper extremity function for ADL's. Plan of Care: ADL Retraining, Functional Mobility, UE Funct Exercise/Act Treatment Duration: May 06, 2022 Frequency: At least 5 of 7 days/Wk (IRF) Estimated Hrs Per Day: 1 hour per day Rehab Potential: Good Time Start Time: 13:30 Stop Time: 14:00 DATE: Apr 24, 2022 Total Time Billed (hr/min): 30 Billed Treatment Time 1 visit-EX 2 (30 min) KELLEY SILVER Apr 24, 2022 14:18
--- NOTE | 2022-04-24 15:00 | Physical Therapy Daily Note ---
PT Daily Note-Current Subjective Pt sitting in recliner upon arrival. Pt agrees to PT. Pain Numeric Pain Scale: 6 Location: Right Location Body Site: Pelvic Pain Description: Ache Section J - Health Conditions 1. Rarely or not at all 2. Occasionally 3. Frequently 4. Almost constantly 8. Unable to answer Pain Effect on Sleep: 1 Pain Interference with Therapy: 3 Pain Interference w/Day-to-Day: 2 Mental Status Patient Orientation: Person, Place, Time, Situation Transfers SCALE: Activities may be completed with or without assistive devices. 7-Qnpearqglm-nlcrfnj completes the activity by him/herself with no assistance from a helper. 5-Set-up or Clean-up Assistance-helper sets up or cleans up; patient completes activity. [place] assists only prior to or following the activity. 4-Supervision or Touching Assistance-helper provides verbal cues and/or to uching/steadying and/or contact guard assistance as patient completes activity. Assistance may be provided throughout the activity or intermittently. 3-Partial/Moderate Assistance-helper does LESS THAN HALF the effort. [place] lifts, holds or supports trunk or limbs, but provides less than half the effort. 2-Substantial/Maximal Assistance-helper does MORE THAN HALF the effort. [place] lifts or holds trunk or limbs and provides more than half the effort. 4-Wdaesjies-szmzcn does ALL the effort. Patient does none of the effort to complete the activity. Or, the assistance of 2 or more helpers is required for the patient to complete the activity. If activity was not attempted, code reason: 7-Patient Refused. 9-Not Applicable-not attempted and the patient did not perform the activity before the current illness, exacerbation or injury. 10-Not Attempted due to Environmental Limitations-(lack of equipment, weather restraints, etc.). 88-Not Attempted due to Medical Conditions or Safety Concerns. Sit to Stand (QC): 5 Toilet Transfer (QC): 5 Weight Bearing Right Lower Extremity: Right Weight Bearing/Tolerated Left Lower Extremity: Left Weight Bearing/Tolerated Gait Training Does the Patient Walk?: Yes Distance: 100', 175', 100' Walk 10 feet (QC): 5 Walk 50 ft with 2 Turns(QC): 5 Walk 150 ft (QC): 5 Gait Assistive Device: FWW Treatments TF to standing and amb. to BR. After toileting, pt amb. in hallway & takes RB as needed for fatigue & nausea. Pt returns to recliner to rest at end of tx, all needs met & call light in hand. Assessment Current Status: Good Progress Pt fatigues and gets nauseated occasionally w/amb. PT Drywall Hanger Framer Goals Retirement Goals PT Drywall Hanger Framer Goals Time Frame: May 06, 2022 Roll Left & Right (QC): 6 Sit to Lying (QC): 6 Lying-Sitting on Side/Bed(QC): 6 Sit to Stand (QC): 6 Chair/Bqq-cz-Tmocg Xfer(QC): 6 Toilet Transfer (QC): 6 Car Transfer (QC): 6 Does the Patient Walk: Yes Walk 10 feet (QC): 6 Walk 50ft with 2 Turns (QC): 6 Walk 150 ft (QC): 6 Walking 10ft on Uneven Surface: 6 1 Step (curb) (QC): 4 4 Steps (QC): 3 12 Steps (QC): 9 Picking up an Object (QC): 6 Does the Pt use WC or Scooter?: No Wheel 50 feet with 2 turns (QC: 9 Wheel 150 feet: 9 PT Plan Problem List Problem List: Activity Tolerance Treatment/Plan Treatment Plan: Continue Plan of Care Treatment Plan: Bed Mobility, Education, Functional Activity Ney, Functional Strength, Gait, Safety, Therapeutic Exercise, Transfers Treatment Duration: May 13, 2022 Frequency: At least 5 of 7 days/Wk (IRF) Estimated Hrs Per Day: 1.5 hours per day Patient and/or Family Agrees t: Yes Time Time In: 1300 Time Out: 1330 DATE: Apr 24, 2022 Total Billed Treatment Time: 30 Total Billed Treatment 1, FA (10m) & GT (20m) ROSE MARIE TORRES CREATIVE ARTS MUSIC THERAPIST Apr 24, 2022 15:00
[2022-04-24 19:40] VITALS: BP 127/75
[2022-04-24] MEDS: ASPIRIN E.C. 81 MG (ECOTRIN) TAB PO SCH (21:41)
[2022-04-24] MEDS: ROSUVASTATIN 20 MG (CRESTOR) TABLET PO SCH (21:42)
--- NOTE | 2022-04-25 06:27 | PM&R Progress Note ---
Subjective HPI/CC On Admission Date Seen by Provider: Apr 25, 2022 Time Seen by Provider: 08:30 Subjective/Events-last exam 04/25/2022: No major issues Walking well without a lot of pain APAP and Ultram alternating working well 04/24/2022: Doing well APAP is about all she is taking for the pain No major issues 04/23/2022: Patient doing really well Pain is improved with Ultram and Tylenol No major concerns Bowels moving She wants Voltaren gel for her neck 04/22/2022: Patient doing really well Moving around better than she thought No orthostasis noted Bowels moved yesterday Pain controlled with Ultram and Tylenol Review of Systems General: Fatigue, Malaise Objective Exam Vital Signs Vital Signs Date Time Temp Pulse Resp B/P (MAP) Pulse Ox O2 Delivery O2 Flow Rate FiO2 04/25/22 08:30 Room Air 04/25/22 07:50 36.4 62 16 143/80 (101) 100 Capillary Refill : General Appearance: No Apparent Distress, WD/WN, Chronically ill HEENT: PERRL/EOMI, Normal ENT Inspection, Pharynx Normal Neck: Full Range of Motion, Normal Inspection, Non Tender, Supple, Carotid Bruit Respiratory: Chest Non Tender, Lungs Clear, Normal Breath Sounds, No Accessory Muscle Use, No Respiratory Distress Cardiovascular: No Edema, No Gallop, No JVD, No Murmur, Normal Peripheral Pulses, Irregularly Irregular Gastrointestinal: Normal Bowel Sounds, No Organomegaly, No Pulsatile Mass, Non Tender, Soft Back: Normal Inspection, No CVA Tenderness, No Vertebral Tenderness Extremity: Normal Capillary Refill, Normal Inspection, Normal Range of Motion (legs due to pelvic fracture pain), Non Tender, No Calf Tenderness, No Pedal Edema Neurologic/Psychiatric: Alert, Oriented x3, No Motor/Sensory Deficits, Normal Mood/Affect, Abnormal Gait, Motor Weakness (lower extremities) Skin: Normal Color, Warm/Dry Lymphatic: No Adenopathy Results/Procedures Lab Patient resulted labs reviewed. FIM Transfers Therapy Code Descriptions/Definitions Functional [place] Measure: 0=Not Assessed/NA 4=Minimal Assistance 1=Total Assistance 5=Supervision or Setup 2=Maximal Assistance 6=Modified [place] 3=Moderate Assistance 7=Complete IndependenceSCALE: Activities may be completed with or without assistive devices. 3-Ztybzdoxxb-ehcdmby completes the activity by him/herself with no assistance from a helper. 5-Set-up or Clean-up Assistance-helper sets up or cleans up; patient completes activity. [place] assists only prior to or following the activity. 4-Supervision or Touching Assistance-helper provides verbal cues and/or touching/steadying and/or contact guard assistance as patient completes activity. Assistance may be provided throughout the activity or intermittently. 3-Partial/Moderate Assistance-helper does LESS THAN HALF the effort. [place] lifts, holds or supports trunk or limbs, but provides less than half the effort. 2-Substantial/Maximal Assistance-helper does MORE THAN HALF the effort. [place] lifts or holds trunk or limbs and provides more than half the effort. 0-Qyflhmich-cubbgs does ALL the effort. Patient does none of the effort to complete the activity. Or, the assistance of 2 or more helpers is required for the patient to complete the activity. If activity was not attempted, code reason: 7-Patient Refused. 9-Not Applicable-not attempted and the patient did not perform the activity before the current illness, exacerbation or injury. 10-Not Attempted due to Environmental Limitations-(lack of equipment, weather restraints, etc.). 88-Not Attempted due to Medical Conditions or Safety Concerns. Roll Left to Right (QC): 4 Sit to Lying (QC): 4 Sit to Stand (QC): 5 Chair/Upy-av-Pasbt Xfer(QC): 5 Car Transfer (QC): 5 Gait Training Does the Patient Walk?: Yes Distance: 100', 175', 100' Walk 10 feet (QC): 5 Walk 50 ft with 2 Turns(QC): 5 Walk 150 ft (QC): 5 Walking 10ft/uneven surface-QC: 4 Gait Assistive Device: FWW Wheelchair Training Does the Pt Use a Wheelchair?: No Wheel 50 ft with 2 turns (QC): 9 Wheel 150 ft (QC): 9 Stair Training #of Steps: 0 1 Step (curb) (QC): 88 4 Steps (QC): 88 12 Steps (QC): 88 Balance Picking up an Object (QC): 5 ADL-Treatment Eating (QC): 6 Oral Hygiene (QC): 6 Shower/Bathe Self (QC): 6 Upper Body Dressing (QC): 5 Lower Body Dressing (QC): 4 On/Off Footwear (QC): 4 Toileting Hygiene (QC): 6 Toilet Transfer (QC): 6 Assessment/Plan Assessment and Plan Assess & Plan/Chief Complaint Assessment: Pelvic fracture sustained in a fall with severe pain and debility Chronic lower leg edema Orthostasis causing slow recovery (it occurred after her hip revision in 2019) HTN HLP CAD on ASA GERD Osteoporosis Pacemaker AF on OAC Aortic stenosis s/p TAVR repair OA Neuropathy Angina Thyroid nodule Nausea Plan: Pain control Rehab protocol Monitor BP 04/22/2022: Pain control Supportive care 04/23/2022: Voltaren gel for neck pain 04/24/2022: Monitor pain 04/25/2022: Supportive care Monitor pain (1) Pelvic fracture (2) GERD (gastroesophageal reflux disease) (3) IBS (irritable bowel syndrome) (4) Pacemaker (5) Osteoporosis (6) History of coronary artery stent placement (7) History of left hip replacement Status: Acute VANE KRISHNA DO Apr 25, 2022 06:27
[2022-04-25] MEDS: MULTIVIT W/MINERALS TAB (THERAGRAN M) PO SCH (07:00)
[2022-04-25 07:49] VITALS: BP 136/76
[2022-04-25 07:50] VITALS: BP 143/80
--- NOTE | 2022-04-25 09:04 | Physical Therapy Daily Note ---
PT Daily Note-Current Subjective Pt sitting in recliner upon arrival. Pt agrees to PT. Pain Numeric Pain Scale: 5-Moderate Pain Location: Right Location Body Site: Pelvic Pain Description: Ache Section J - Health Conditions 1. Rarely or not at all 2. Occasionally 3. Frequently 4. Almost constantly 8. Unable to answer Pain Effect on Sleep: 1 Pain Interference with Therapy: 3 Pain Interference w/Day-to-Day: 2 Mental Status Patient Orientation: Person, Place, Time, Situation Transfers SCALE: Activities may be completed with or without assistive devices. 2-Htptxiuvao-pseehwd completes the activity by him/herself with no assistance from a helper. 5-Set-up or Clean-up Assistance-helper sets up or cleans up; patient completes activity. [place] assists only prior to or following the activity. 4-Supervision or Touching Assistance-helper provides verbal cues and/or touching/steadying and/or contact guard assistance as patient completes activity. Assistance may be provided throughout the activity or intermittently. 3-Partial/Moderate Assistance-helper does LESS THAN HALF the effort. [place] lifts, holds or supports trunk or limbs, but provides less than half the effort. 2-Substantial/Maximal Assistance-helper does MORE THAN HALF the effort. [place] lifts or holds trunk or limbs and provides more than half the effort. 7-Xolcwbwce-aeaxeo does ALL the effort. Patient does none of the effort to complete the activity. Or, the assistance of 2 or more helpers is required for the patient to complete the activity. If activity was not attempted, code reason: 7-Patient Refused. 9-Not Applicable-not attempted and the patient did not perform the activity before the current illness, exacerbation or injury. 10-Not Attempted due to Environmental Limitations-(lack of equipment, weather restraints, etc.). 88-Not Attempted due to Medical Conditions or Safety Concerns. Sit to Stand (QC): 5 Toilet Transfer (QC): 5 Weight Bearing Right Lower Extremity: Right Weight Bearing/Tolerated Left Lower Extremity: Left Weight Bearing/Tolerated Gait Training Does the Patient Walk?: Yes Distance: 200', 250' x2, 200' Walk 10 feet (QC): 5 Walk 50 ft with 2 Turns(QC): 5 Walk 150 ft (QC): 5 Gait Assistive Device: FWW Pt's gait is getting more normalized every visit. Pt is taking longer to report discomfort/nausea with movement. Wheelchair Training Does the Pt Use a Wheelchair?: No Exercises Seated Therapy Exercises: Ankle pumps, Long arc quads, Hip flexion, Hip abd/add Seated Reps: 15 Treatments TF to standing and amb. to BR. Pt amb. in hallway taking RB as needed. Pt completes Seated EX and works on TF from chairs w/o arm rests as pt states many of her chairs do not have arm rests. Pt amb. in hallway then returns to room to rest in recliner. All needs met, call light in hand. Assessment Current Status: Good Progress Pt is gaining independence and activity alvina. w/mobility. PT Group Home Goals Group Home Goals PT Parking Patroller Goals Time Frame: May 06, 2022 Roll Left & Right (QC): 6 Sit to Lying (QC): 6 Lying-Sitting on Side/Bed(QC): 6 Sit to Stand (QC): 6 Chair/Zga-ky-Wyizx Xfer(QC): 6 Toilet Transfer (QC): 6 Car Transfer (QC): 6 Does the Patient Walk: Yes Walk 10 feet (QC): 6 Walk 50ft with 2 Turns (QC): 6 Walk 150 ft (QC): 6 Walking 10ft on Uneven Surface: 6 1 Step (curb) (QC): 4 4 Steps (QC): 3 12 Steps (QC): 9 Picking up an Object (QC): 6 Does the Pt use WC or Scooter?: No Wheel 50 feet with 2 turns (QC: 9 Wheel 150 feet: 9 PT Plan Treatment/Plan Treatment Plan: Continue Plan of Care Treatment Plan: Bed Mobility, Education, Functional Activity Ney, Functional Strength, Gait, Safety, Therapeutic Exercise, Transfers Treatment Duration: May 13, 2022 Frequency: At least 5 of 7 days/Wk (IRF) Estimated Hrs Per Day: 1.5 hours per day Patient and/or Family Agrees t: Yes Safety Risks/Education Patient Education: Transfer Techniques Teaching Recipient: Patient Teaching Methods: Discussion Response to Teaching: Verbalize Understanding Time Time In: 800 Time Out: 900 DATE: Apr 25, 2022 Total Billed Treatment Time: 60 Total Billed Treatment 1, GT x2 (30m), EX (15m) & FA (15m) ROSE MARIE TORRES ENVIRONMENTAL SERVICES FLOOR TECH Apr 25, 2022 09:04
[2022-04-25] MEDS: PROPRANOLOL ER 80 MG CAP (INDERAL LA) PO SCH (09:24)
[2022-04-25] MEDS: APIXABAN 2.5 MG (ELIQUIS) TABLET PO SCH ×2 (09:24→20:56)
[2022-04-25] MEDS: ACETAMINOPHEN 500 MG TAB (TYLENOL) PO PRN (09:25)
[2022-04-25] MEDS: polyethylene glycoL POWDER 17 GM (MIRALAX) PACK PO SCH ×2 (09:28→20:55)
[2022-04-25] MEDS: SENNA W/DOCUSATE (SENOKOT S) TABLET PO SCH ×2 (09:28→20:55)
[2022-04-25] MEDS: DOCUSATE SODIUM 100 MG (COLACE) CAP PO SCH ×2 (09:28→20:55)
[2022-04-25] MEDS: DICLOFENAC 1% GEL 100 GM (VOLTAREN) TUBE TP PRN ×2 (09:29→21:00)
[2022-04-25] MEDS: DICLOFENAC 1% GEL 100 GM (VOLTAREN) TUBE TOP SCH ×2 (09:30→20:55)
--- NOTE | 2022-04-25 09:54 | Occupational Ther Daily Note ---
OT Current Status-Daily Note Subjective Pt alert, sitting in recliner. Pt agrees to therapy. Pt c/o pain 4/10 in sitting, nrsg brought pain meds. Mental Status/Objective Patient Orientation: Person, Place, Time, Situation ADL-Treatment Pt agrees to shower. Pt requesting to be up ad laurent in room, BILLY educated pt on safety in room and that pt continues to need to call staff though will be able to complete tasks without staffs help, staff will be in room and making sure environment and if any medical issues arise. Independent with toileting. Pt able to gather clothing from closet using FWW then take to bathroom to dress after shower. Independent with showering using grabbars, LH sponge, hand held shower and shower bench. Independent with upper/lower body dressing, AE used when needed. Using sock aide pt able to don IRVIN hose with minimal verbal cues. Using dressing stick, pt able to don/doff houseshoes. Therapy Code Descriptions/Definitions Functional [place] Measure: 0=Not Assessed/NA 4=Minimal Assistance 1=Total Assistance 5=Supervision or Setup 2=Maximal Assistance 6=Modified [place] 3=Moderate Assistance 7=Complete IndependenceSCALE: Activities may be completed with or without assistive devices. 2-Cehbbqlwmx-oxjudlq completes the activity by him/herself with no assistance from a helper. 5-Set-up or Clean-up Assistance-helper sets up or cleans up; patient completes activity. [place] assists only prior to or following the activity. 4-Supervision or Touching Assistance-helper provides verbal cues and/or touching/steadying and/or contact guard assistance as patient completes activity. Assistance may be provided throughout the activity or intermittently. 3-Partial/Moderate Assistance-helper does LESS THAN HALF the effort. [place] lifts, holds or supports trunk or limbs, but provides less than half the effort. 2-Substantial/Maximal Assistance-helper does MORE THAN HALF the effort. [place] lifts or holds trunk or limbs and provides more than half the effort. 4-Wqxfmjqoy-nxffsz does ALL the effort. Patient does none of the effort to complete the activity. Or, the assistance of 2 or more helpers is required for the patient to complete the activity. If activity was not attempted, code reason: 7-Patient Refused. 9-Not Applicable-not attempted and the patient did not perform the activity before the current illness, exacerbation or injury. 10-Not Attempted due to Environmental Limitations-(lack of equipment, weather restraints, etc.). 88-Not Attempted due to Medical Conditions or Safety Concerns. Shower/Bathe Self (QC): 6 Upper Body Dressing (QC): 6 Lower Body Dressing (QC): 6 On/Off Footwear: 4 Toileting Hygiene (QC): 6 Toilet Transfer (QC): 6 Other Treatment FWW basket placed for pt to use while on ARU. Pt utilized hop grower to pick dirty laundry up from basket and place in walker basket to take to laundry room, SBA for safety. Pt able to offload B UE's to complete task, no LOB. Pt able to place laundry in washer with SBA. After session, pt lying in bed with call light/phone in reach. All needs met in room. OT Correction Goals Reporting Developer Goals Time Frame: May 06, 2022 Acute change in mental status: 0 Inattention: 0 Disorganized thinkin Altered level of consciousness: 0 Eating (QC): 6 Oral Hygiene (QC): 6 Toileting Hygiene (QC): 6 Shower/Bathe Self (QC): 5 (With AE as needed.) Upper Body Dressing (QC): 6 Lower Body Dressing (QC): 6 (With AE as needed.) On/Off Footwear (QC): 6 (With AE as needed.) Additional Goals: 1-Demonstrate ADL Tasks, 2-Verbalize Understanding, 3-ImproveStrength/Ney 1=Demonstrate adherence to instructed precautions during ADL tasks. 2=Patient will verbalize/demonstrate understanding of assistive devices/modifications for ADL. 3=Patient will improve strength/tolerance for activity to enable patient to perform ADL's. OT Education/Plan Problem List/Assessment Assessment: Decreased Activ Tolerance, Impaired Self-Care Skills Discharge Recommendations Plan/Recommendations: Continue POC Treatment Plan/Plan of Care Patient would benefit from OT for education, treatment and training to promote independence in ADL's, mobility, safety and/or upper extremity function for ADL's. Plan of Care: ADL Retraining, Functional Mobility, UE Funct Exercise/Act Treatment Duration: May 06, 2022 Frequency: At least 5 of 7 days/Wk (IRF) Estimated Hrs Per Day: 1 hour per day Rehab Potential: Good Time Start Time: 09:00 Stop Time: 10:00 DATE: Apr 25, 2022 Total Time Billed (hr/min): 60 Billed Treatment Time 1 visit-ADL 2 (30 min) FA 2 (30 min) KELLEY SILVER Apr 25, 2022 09:54
--- NOTE | 2022-04-25 13:58 | Occupational Ther Daily Note ---
OT Current Status-Daily Note Subjective Pt alert, sitting in recliner. Pt agrees to therapy. No c/o pain. Mental Status/Objective Patient Orientation: Person, Place, Time, Situation ADL-Treatment Therapy Code Descriptions/Definitions Functional [place] Measure: 0=Not Assessed/NA 4=Minimal Assistance 1=Total Assistance 5=Supervision or Setup 2=Maximal Assistance 6=Modified [place] 3=Moderate Assistance 7=Complete IndependenceSCALE: Activities may be completed with or without assistive devices. 8-Iwanceqwfp-eprcnxn completes the activity by him/herself with no assistance f rom a helper. 5-Set-up or Clean-up Assistance-helper sets up or cleans up; patient completes activity. [place] assists only prior to or following the activity. 4-Supervision or Touching Assistance-helper provides verbal cues and/or touching/steadying and/or contact guard assistance as patient completes activity. Assistance may be provided throughout the activity or intermittently. 3-Partial/Moderate Assistance-helper does LESS THAN HALF the effort. [place] lifts, holds or supports trunk or limbs, but provides less than half the effort. 2-Substantial/Maximal Assistance-helper does MORE THAN HALF the effort. [place] lifts or holds trunk or limbs and provides more than half the effort. 1-Jdpiokyqw-crbjlb does ALL the effort. Patient does none of the effort to complete the activity. Or, the assistance of 2 or more helpers is required for the patient to complete the activity. If activity was not attempted, code reason: 7-Patient Refused. 9-Not Applicable-not attempted and the patient did not perform the activity before the current illness, exacerbation or injury. 10-Not Attempted due to Environmental Limitations-(lack of equipment, weather restraints, etc.). 88-Not Attempted due to Medical Conditions or Safety Concerns. Other Treatment Pt working on IADLs. Pt able to use accountancy professor to retrieve items from washer/dryer without LOB. Pt then working on kitchen mobility using counter to ambulate. Pt does place increased wt onto B UE when ambulating with counter for increased support, is able to complete reaching and grasping at varying heights without LOB. Discussed/educated energy conservation techniques in kitchen, ie paper plates, chairs in close proximity. After therapy, pt sitting in recliner with call light/phone in reach. All needs met in room. OT Halfway Goals Per Diem Clerk Goals Time Frame: May 06, 2022 Acute change in mental status: 0 Inattention: 0 Disorganized thinkin Altered level of consciousness: 0 Eating (QC): 6 Oral Hygiene (QC): 6 Toileting Hygiene (QC): 6 Shower/Bathe Self (QC): 5 (With AE as needed.) Upper Body Dressing (QC): 6 Lower Body Dressing (QC): 6 (With AE as needed.) On/Off Footwear (QC): 6 (With AE as needed.) Additional Goals: 1-Demonstrate ADL Tasks, 2-Verbalize Understanding, 3- ImproveStrength/Ney 1=Demonstrate adherence to instructed precautions during ADL tasks. 2=Patient will verbalize/demonstrate understanding of assistive devices/modifications for ADL. 3=Patient will improve strength/tolerance for activity to enable patient to perform ADL's. OT Education/Plan Problem List/Assessment Assessment: Decreased Activ Tolerance Discharge Recommendations Plan/Recommendations: Continue POC Treatment Plan/Plan of Care Patient would benefit from OT for education, treatment and training to promote independence in ADL's, mobility, safety and/or upper extremity function for ADL's. Plan of Care: ADL Retraining, Functional Mobility, UE Funct Exercise/Act Treatment Duration: May 06, 2022 Frequency: At least 5 of 7 days/Wk (IRF) Estimated Hrs Per Day: 1 hour per day Rehab Potential: Good Time Start Time: 13:30 Stop Time: 14:00 DATE: Apr 25, 2022 Total Time Billed (hr/min): 30 Billed Treatment Time 1 visit-FA 2 (30 min) KELLEY SILVER Apr 25, 2022 13:58
--- NOTE | 2022-04-25 14:56 | Physical Therapy Daily Note ---
PT Daily Note-Current Subjective Pt sitting in recliner upon arrival. Pt agrees to PT. Pt declines need for BR. Pain Numeric Pain Scale: 3 Location: Right Location Body Site: Pelvic Pain Description: Ache Section J - Health Conditions 1. Rarely or not at all 2. Occasionally 3. Frequently 4. Almost constantly 8. Unable to answer Pain Effect on Sleep: 1 Pain Interference with Therapy: 3 Pain Interference w/Day-to-Day: 2 Mental Status Patient Orientation: Person, Place, Time, Situation Transfers SCALE: Activities may be completed with or without assistive devices. 7-Qsegagtnzv-hygtwbk completes the activity by him/herself with no assistance from a helper. 5-Set-up or Clean-up Assistance-helper sets up or cleans up; patient completes activity. [place] assists only prior to or following the activity. 4-Supervision or Touching Assistance-helper provides verbal cues and/or touching/steadying and/or contact guard assistance as patient completes activity. Assistance may be provided throughout the activity or intermittently. 3-Partial/Moderate Assistance-helper does LESS THAN HALF the effort. [place] lifts, holds or supports trunk or limbs, but provides less than half the effort. 2-Substantial/Maximal Assistance-helper does MORE THAN HALF the effort. [place] lifts or holds trunk or limbs and provides more than half the effort. 2-Iehlsmhdi-lcjdlf does ALL the effort. Patient does none of the effort to complete the activity. Or, the assistance of 2 or more helpers is required for the patient to complete the activity. If activity was not attempted, code reason: 7-Patient Refused. 9-Not Applicable-not attempted and the patient did not perform the activity before the current illness, exacerbation or injury. 10-Not Attempted due to Environmental Limitations-(lack of equipment, weather restraints, etc.). 88-Not Attempted due to Medical Conditions or Safety Concerns. Sit to Stand (QC): 5 Weight Bearing Right Lower Extremity: Right Weight Bearing/Tolerated Left Lower Extremity: Left Weight Bearing/Tolerated Gait Training Does the Patient Walk?: Yes Distance: 200' x2 , 250' x2 Walk 10 feet (QC): 5 Walk 50 ft with 2 Turns(QC): 5 Walk 150 ft (QC): 5 Gait Assistive Device: FWW Treatments TF to standing and declines need for BR. Pt amb. in hallway taking a couple RB as needed for fatigue and discomfort. Pt returns to room at end of tx to rest in recliner. All needs met, call light in hand. Assessment Current Status: Good Progress Pt demonstrates less interference from pain or nausea while walking. Pt needs occasional RB. PT Nursing Home Goals Nursing Home Goals PT Integration Analyst Goals Time Frame: May 06, 2022 Roll Left & Right (QC): 6 Sit to Lying (QC): 6 Lying-Sitting on Side/Bed(QC): 6 Sit to Stand (QC): 6 Chair/Gzn-sx-Nykxy Xfer(QC): 6 Toilet Transfer (QC): 6 Car Transfer (QC): 6 Does the Patient Walk: Yes Walk 10 feet (QC): 6 Walk 50ft with 2 Turns (QC): 6 Walk 150 ft (QC): 6 Walking 10ft on Uneven Surface: 6 1 Step (curb) (QC): 4 4 Steps (QC): 3 12 Steps (QC): 9 Picking up an Object (QC): 6 Does the Pt use WC or Scooter?: No Wheel 50 feet with 2 turns (QC: 9 Wheel 150 feet: 9 PT Plan Treatment/Plan Treatment Plan: Continue Plan of Care Treatment Plan: Bed Mobility, Education, Functional Activity Ney, Functional Strength, Gait, Safety, Therapeutic Exercise, Transfers Treatment Duration: May 13, 2022 Frequency: At least 5 of 7 days/Wk (IRF) Estimated Hrs Per Day: 1.5 hours per day Patient and/or Family Agrees t: Yes Time Time In: 1400 Time Out: 1430 DATE: Apr 25, 2022 Total Billed Treatment Time: 30 Total Billed Treatment 1, GT x2 (30m) ROSE MARIE TORRES DROSS SKIMMER Apr 25, 2022 14:56
[2022-04-25 19:36] VITALS: BP 124/70
[2022-04-25] MEDS: ROSUVASTATIN 20 MG (CRESTOR) TABLET PO SCH (20:56)
[2022-04-25] MEDS: ASPIRIN E.C. 81 MG (ECOTRIN) TAB PO SCH (20:56)
[2022-04-26] MEDS: ACETAMINOPHEN 500 MG TAB (TYLENOL) PO PRN (04:10)
--- NOTE | 2022-04-26 04:55 | PM&R Progress Note ---
Subjective HPI/CC On Admission Date Seen by Provider: Apr 26, 2022 Time Seen by Provider: 08:30 Subjective/Events-last exam 04/26/2022: Much improved Pain controlled B12 and Iron level reviewed and updated patient 04/25/2022: No major issues Walking well without a lot of pain APAP and Ultram alternating working well 04/24/2022: Doing well APAP is about all she is taking for the pain No major issues 04/23/2022: Patient doing really well Pain is improved with Ultram and Tylenol No major concerns Bowels moving She wants Voltaren gel for her neck 04/22/2022: Patient doing really well Moving around better than she thought No orthostasis noted Bowels moved yesterday Pain controlled with Ultram and Tylenol Review of Systems General: Fatigue, Malaise Objective Exam Vital Signs Vital Signs Date Time Temp Pulse Resp B/P (MAP) Pulse Ox O2 Delivery O2 Flow Rate FiO2 04/26/22 21:20 97 Room Air 04/26/22 19:48 36.4 66 18 163/33 (76) Capillary Refill : General Appearance: No Apparent Distress, WD/WN, Chronically ill HEENT: PERRL/EOMI, Normal ENT Inspection, Pharynx Normal Neck: Full Range of Motion, Normal Inspection, Non Tender, Supple, Carotid Bruit Respiratory: Chest Non Tender, Lungs Clear, Normal Breath Sounds, No Accessory Muscle Use, No Respiratory Distress Cardiovascular: No Edema, No Gallop, No JVD, No Murmur, Normal Peripheral Pulses, Irregularly Irregular Gastrointestinal: Normal Bowel Sounds, No Organomegaly, No Pulsatile Mass, Non Tender, Soft Back: Normal Inspection, No CVA Tenderness, No Vertebral Tenderness Extremity: Normal Capillary Refill, Normal Inspection, Normal Range of Motion (legs due to pelvic fracture pain), Non Tender, No Calf Tenderness, No Pedal Edema Neurologic/Psychiatric: Alert, Oriented x3, No Motor/Sensory Deficits, Normal Mood/Affect, Abnormal Gait, Motor Weakness (lower extremities) Skin: Normal Color, Warm/Dry Lymphatic: No Adenopathy Results/Procedures Lab Patient resulted labs reviewed. FIM Transfers Therapy Code Descriptions/Definitions Functional [place] Measure: 0=Not Assessed/NA 4=Minimal Assistance 1=Total Assistance 5=Supervision or Setup 2=Maximal Assistance 6=Modified [place] 3=Moderate Assistance 7=Complete IndependenceSCALE: Activities may be completed with or without assistive devices. 8-Egidkgmhed-bboyubk completes the activity by him/herself with no assistance from a helper. 5-Set-up or Clean-up Assistance-helper sets up or cleans up; patient completes activity. [place] assists only prior to or following the activity. 4-Supervision or Touching Assistance-helper provides verbal cues and/or touching/steadying and/or contact guard assistance as patient completes activity. Assistance may be provided throughout the activity or intermittently. 3-Partial/Moderate Assistance-helper does LESS THAN HALF the effort. [place] lifts, holds or supports trunk or limbs, but provides less than half the effort. 2-Substantial/Maximal Assistance-helper does MORE THAN HALF the effort. [place] lifts or holds trunk or limbs and provides more than half the effort. 8-Dqvptxeum-akciiu does ALL the effort. Patient does none of the effort to complete the activity. Or, the assistance of 2 or more helpers is required for the patient to complete the activity. If activity was not attempted, code reason: 7-Patient Refused. 9-Not Applicable-not attempted and the patient did not perform the activity before the current illness, exacerbation or injury. 10-Not Attempted due to Environmental Limitations-(lack of equipment, weather restraints, etc.). 88-Not Attempted due to Medical Conditions or Safety Concerns. Roll Left to Right (QC): 4 Sit to Lying (QC): 4 Sit to Stand (QC): 5 Chair/Dqi-vg-Hewqu Xfer(QC): 5 Car Transfer (QC): 5 Gait Training Does the Patient Walk?: Yes Distance: 200' x2 , 250' x2 Walk 10 feet (QC): 5 Walk 50 ft with 2 Turns(QC): 5 Walk 150 ft (QC): 5 Walking 10ft/uneven surface-QC: 4 Gait Assistive Device: FWW Wheelchair Training Does the Pt Use a Wheelchair?: No Wheel 50 ft with 2 turns (QC): 9 Wheel 150 ft (QC): 9 Stair Training #of Steps: 0 1 Step (curb) (QC): 88 4 Steps (QC): 88 12 Steps (QC): 88 Balance Picking up an Object (QC): 5 ADL-Treatment Eating (QC): 6 Oral Hygiene (QC): 6 Shower/Bathe Self (QC): 6 Upper Body Dressing (QC): 6 Lower Body Dressing (QC): 6 On/Off Footwear (QC): 4 Toileting Hygiene (QC): 6 Toilet Transfer (QC): 6 Assessment/Plan Assessment and Plan Assess & Plan/Chief Complaint Assessment: Pelvic fracture sustained in a fall with severe pain and debility Chronic lower leg edema Orthostasis causing slow recovery (it occurred after her hip revision in 2019) HTN HLP CAD on ASA GERD Osteoporosis Pacemaker AF on OAC Aortic stenosis s/p TAVR repair OA Neuropathy Angina Thyroid nodule Nausea B12 deficiency Iron deficiency Plan: Pain control Rehab protocol Monitor BP 04/22/2022: Pain control Supportive care 04/23/2022: Voltaren gel for neck pain 04/24/2022: Monitor pain 04/25/2022: Supportive care Monitor pain 04/26/2022: B12 and Iron supplements (1) Pelvic fracture (2) GERD (gastroesophageal reflux disease) (3) IBS (irritable bowel syndrome) (4) Pacemaker (5) Osteoporosis (6) History of coronary artery stent placement (7) History of left hip replacement Status: VANE Weston DO Apr 26, 2022 04:55
[2022-04-26] MEDS: MULTIVIT W/MINERALS TAB (THERAGRAN M) PO SCH (07:01)
[2022-04-26 07:26] VITALS: BP 149/72
[2022-04-26] MEDS: DOCUSATE SODIUM 100 MG (COLACE) CAP PO SCH ×2 (08:03→21:28)
[2022-04-26] MEDS: polyethylene glycoL POWDER 17 GM (MIRALAX) PACK PO SCH ×2 (08:03→21:28)
[2022-04-26] MEDS: APIXABAN 2.5 MG (ELIQUIS) TABLET PO SCH ×2 (08:03→21:24)
[2022-04-26] MEDS: PROPRANOLOL ER 80 MG CAP (INDERAL LA) PO SCH (08:03)
[2022-04-26] MEDS: SENNA W/DOCUSATE (SENOKOT S) TABLET PO SCH ×2 (08:04→21:28)
[2022-04-26] MEDS: DICLOFENAC 1% GEL 100 GM (VOLTAREN) TUBE TOP SCH ×2 (08:05→21:26)
--- NOTE | 2022-04-26 09:02 | Physical Therapy Daily Note ---
PT Daily Note-Current Subjective Pt sitting in recliner upon arrival. Pt agrees to PT. Pain Numeric Pain Scale: 3 Location: Right Location Body Site: Pelvic Pain Description: Ache Section J - Health Conditions 1. Rarely or not at all 2. Occasionally 3. Frequently 4. Almost constantly 8. Unable to answer Pain Effect on Sleep: 1 Pain Interference with Therapy: 3 Pain Interference w/Day-to-Day: 2 Mental Status Patient Orientation: Person, Place, Time, Situation Transfers SCALE: Activities may be completed with or without assistive devices. 2-Txohkldlmc-avhlozh completes the activity by him/herself with no assistance from a helper. 5-Set-up or Clean-up Assistance-helper sets up or cleans up; patient completes activity. [place] assists only prior to or following the activity. 4-Supervision or Touching Assistance-helper provides verbal cues and/or to uching/steadying and/or contact guard assistance as patient completes activity. Assistance may be provided throughout the activity or intermittently. 3-Partial/Moderate Assistance-helper does LESS THAN HALF the effort. [place] lifts, holds or supports trunk or limbs, but provides less than half the effort. 2-Substantial/Maximal Assistance-helper does MORE THAN HALF the effort. [place] lifts or holds trunk or limbs and provides more than half the effort. 4-Tybclmnmm-tilxkm does ALL the effort. Patient does none of the effort to complete the activity. Or, the assistance of 2 or more helpers is required for the patient to complete the activity. If activity was not attempted, code reason: 7-Patient Refused. 9-Not Applicable-not attempted and the patient did not perform the activity before the current illness, exacerbation or injury. 10-Not Attempted due to Environmental Limitations-(lack of equipment, weather restraints, etc.). 88-Not Attempted due to Medical Conditions or Safety Concerns. Sit to Stand (QC): 5 Toilet Transfer (QC): 5 Weight Bearing Right Lower Extremity: Right Weight Bearing/Tolerated Left Lower Extremity: Left Weight Bearing/Tolerated Gait Training Does the Patient Walk?: Yes Distance: 200' x2 , 250' x2 Walk 10 feet (QC): 5 Walk 50 ft with 2 Turns(QC): 5 Walk 150 ft (QC): 5 Gait Assistive Device: FWW Pt's gait pattern is normalizing, very slight antalgic tendency. Wheelchair Training Does the Pt Use a Wheelchair?: No Treatments TF to standing and amb to BR. Pt amb. in hallway taking RB as needed. Pt completes car transfer as well as kitchen practice before amb. in hallway then returning to room to rest in recliner. All needs met, call light in hand. Assessment Current Status: Excellent Progress Pt alvina. tx very well, decreased pain than previous tx. PT Mechanical Maintenance Goals [facility] Goals PT Mechanical Maintenance Goals Time Frame: May 06, 2022 Roll Left & Right (QC): 6 Sit to Lying (QC): 6 Lying-Sitting on Side/Bed(QC): 6 Sit to Stand (QC): 6 Chair/Llr-ej-Wvfxq Xfer(QC): 6 Toilet Transfer (QC): 6 Car Transfer (QC): 6 Does the Patient Walk: Yes Walk 10 feet (QC): 6 Walk 50ft with 2 Turns (QC): 6 Walk 150 ft (QC): 6 Walking 10ft on Uneven Surface: 6 1 Step (curb) (QC): 4 4 Steps (QC): 3 12 Steps (QC): 9 Picking up an Object (QC): 6 Does the Pt use WC or Scooter?: No Wheel 50 feet with 2 turns (QC: 9 Wheel 150 feet: 9 PT Plan Problem List Problem List: Activity Tolerance Treatment/Plan Treatment Plan: Continue Plan of Care Treatment Plan: Bed Mobility, Education, Functional Activity Ney, Functional Strength, Gait, Safety, Therapeutic Exercise, Transfers Treatment Duration: May 13, 2022 Frequency: At least 5 of 7 days/Wk (IRF) Estimated Hrs Per Day: 1.5 hours per day Patient and/or Family Agrees t: Yes Safety Risks/Education Patient Education: Gait Training, Correct Positioning Teaching Recipient: Patient Teaching Methods: Discussion Response to Teaching: Verbalize Understanding Time Time In: 801 Time Out: 901 DATE: Apr 26, 2022 Total Billed Treatment Time: 60 Total Billed Treatment 1, GT x2 (30m) & FA x2 (30m) ROSE MARIE TORRES HAND UMBRELLA TIPPER Apr 26, 2022 09:02
[2022-04-26] MEDS ORDERED: CYANOCOBALAMIN INJ 1000 MCG/ML IM NR (10:30)
[2022-04-26] MEDS: IRON SUCROSE 200 MG/10 ML (VENOFER) VIAL IV SCH (11:02)
--- NOTE | 2022-04-26 11:41 | Occupational Ther Daily Note ---
OT Current Status-Daily Note Subjective Pt alert, sitting in recliner. Pt agrees to therapy. Pt c/o pain, nrsg aware and will bring pain meds. Mental Status/Objective Patient Orientation: Person, Place, Time, Situation ADL-Treatment Pt agrees to shower. Independent using FWW to retrieve clothing from closet. Independent toileting. Independent with shower. Independent with dressing, does use AE when needed. Independent with oral care. Independent with eating. Therapy Code Descriptions/Definitions Functional [place] Measure: 0=Not Assessed/NA 4=Minimal Assistance 1=Total Assistance 5=Supervision or Setup 2=Maximal Assistance 6=Modified [place] 3=Moderate Assistance 7=Complete IndependenceSCALE: Activities may be completed with or without assistive devices. 9-Msolrxkafh-pkcumzs completes the activity by him/herself with no assistance from a helper. 5-Set-up or Clean-up Assistance-helper sets up or cleans up; patient completes activity. [place] assists only prior to or following the activity. 4-Supervision or Touching Assistance-helper provides verbal cues and/or touching/steadying and/or contact guard assistance as patient completes activity. Assistance may be provided throughout the activity or intermittently. 3-Partial/Moderate Assistance-helper does LESS THAN HALF the effort. [place] lifts, holds or supports trunk or limbs, but provides less than half the effort. 2-Substantial/Maximal Assistance-helper does MORE THAN HALF the effort. [place] lifts or holds trunk or limbs and provides more than half the effort. 3-Dymfkbqua-jzmloh does ALL the effort. Patient does none of the effort to complete the activity. Or, the assistance of 2 or more helpers is required for the patient to complete the activity. If activity was not attempted, code reason: 7-Patient Refused. 9-Not Applicable-not attempted and the patient did not perform the activity before the current illness, exacerbation or injury. 10-Not Attempted due to Environmental Limitations-(lack of equipment, weather restraints, etc.). 88-Not Attempted due to Medical Conditions or Safety Concerns. Eating (QC): 6 Oral Hygiene (QC): 6 Shower/Bathe Self (QC): 6 Upper Body Dressing (QC): 6 Lower Body Dressing (QC): 6 On/Off Footwear: 6 Toileting Hygiene (QC): 6 Toilet Transfer (QC): 6 Other Treatment Pt ambulates to therapy gym using FWW independently. Pt completes standing fine/gross motor activity to increase strength of B UE's and dynamic standing balance with no LOB. Bandages placed on B thumbs due to cracked skin that has started to bleed. Pt completed by wrist flex/ext/uln dev/rad dev with 2# wt 1 set 15 reps. After session, pt sitting in recliner with call light/phone in reach. All needs met in room. OT Budget Engineer Goals Group Home Goals Time Frame: May 06, 2022 Acute change in mental status: 0 Inattention: 0 Disorganized thinkin Altered level of consciousness: 0 Eating (QC): 6 Oral Hygiene (QC): 6 Toileting Hygiene (QC): 6 Shower/Bathe Self (QC): 5 (With AE as needed.) Upper Body Dressing (QC): 6 Lower Body Dressing (QC): 6 (With AE as needed.) On/Off Footwear (QC): 6 (With AE as needed.) Additional Goals: 1-Demonstrate ADL Tasks, 2-Verbalize Understanding, 3- ImproveStrength/Ney 1=Demonstrate adherence to instructed precautions during ADL tasks. 2=Patient will verbalize/demonstrate understanding of assistive devices/modifications for ADL. 3=Patient will improve strength/tolerance for activity to enable patient to perform ADL's. OT Education/Plan Problem List/Assessment Assessment: Decreased Activ Tolerance, Decreased UE Strength, Impaired Self- Care Skills Discharge Recommendations Plan/Recommendations: Continue POC Treatment Plan/Plan of Care Patient would benefit from OT for education, treatment and training to promote independence in ADL's, mobility, safety and/or upper extremity function for ADL's. Plan of Care: ADL Retraining, Functional Mobility, UE Funct Exercise/Act Treatment Duration: May 06, 2022 Frequency: At least 5 of 7 days/Wk (IRF) Estimated Hrs Per Day: 1 hour per day Rehab Potential: Good Time Start Time: 09:00 Stop Time: 10:00 DATE: Apr 26, 2022 Total Time Billed (hr/min): 60 Billed Treatment Time 1 visit-ADL 2 (25 min) EX 2 (35 min) KELLEY SILVER Apr 26, 2022 11:41
--- NOTE | 2022-04-26 13:36 | Physical Therapy Daily Note ---
PT Daily Note-Current Subjective Pt. agrees to Rx. Pain in right pelvic area at 3/10 Pain Numeric Pain Scale: 3 Location: Right Location Body Site: Pelvic Pain Description: Ache Section J - Health Conditions 1. Rarely or not at all 2. Occasionally 3. Frequently 4. Almost constantly 8. Unable to answer Pain Effect on Sleep: 1 Pain Interference with Therapy: 3 Pain Interference w/Day-to-Day: 2 Mental Status Patient Orientation: Normal For Age Transfers SCALE: Activities may be completed with or without assistive devices. 0-Fbbmyurjhc-sbtabgv completes the activity by him/herself with no assistance from a helper. 5-Set-up or Clean-up Assistance-helper sets up or cleans up; patient completes activity. [place] assists only prior to or following the activity. 4-Supervision or Touching Assistance-helper provides verbal cues and/or touching/steadying and/or contact guard assistance as patient completes activity. Assistance may be provided throughout the activity or intermittently. 3-Partial/Moderate Assistance-helper does LESS THAN HALF the effort. [place] lifts, holds or supports trunk or limbs, but provides less than half the effort. 2-Substantial/Maximal Assistance-helper does MORE THAN HALF the effort. [place] lifts or holds trunk or limbs and provides more than half the effort. 8-Twoedodlt-puswvr does ALL the effort. Patient does none of the effort to complete the activity. Or, the assistance of 2 or more helpers is required for the patient to complete the activity. If activity was not attempted, code reason: 7-Patient Refused. 9-Not Applicable-not attempted and the patient did not perform the activity before the current illness, exacerbation or injury. 10-Not Attempted due to Environmental Limitations-(lack of equipment, weather restraints, etc.). 88-Not Attempted due to Medical Conditions or Safety Concerns. Roll Left & Right (QC): 6 Sit to Lying (QC): 4 Lying to Sitting/Side of Bed(Q: 4 Sit to Stand (QC): 6 Chair/Wei-bp-Kdgsr Xfer(QC): 6 Toilet Transfer (QC): 6 Weight Bearing Right Lower Extremity: Right Weight Bearing/Tolerated Left Lower Extremity: Left Weight Bearing/Tolerated Gait Training Does the Patient Walk?: Yes Walk 10 feet (QC): 6 Walk 50 ft with 2 Turns(QC): 6 Walk 150 ft (QC): 6 Gait Persons Needed: 1 Gait Assistive Device: FWW SBA to Mod I , good use of AD Exercises Supine Ex: Bridging, Ankle pumps, Quad Set, Rolling, Glut sets, Lower trunk rot ation, Heel Slides, Short Arc Quads, Scooting (up in bed), Straight leg raise (asstd right), Hip abd/add Supine Reps: 15 Seated Therapy Exercises: Ankle pumps, Sit to stand, Long arc quads, Hip flexion Seated Reps: 10 Treatments sup and seated LE ex, gait , TRFs, toileting and handwashing etc Assessment Current Status: Good Progress motivated, pleasant, gives full effort PT Fire Manager Goals Retirement Goals PT Fire Manager Goals Time Frame: May 06, 2022 Roll Left & Right (QC): 6 Sit to Lying (QC): 6 Lying-Sitting on Side/Bed(QC): 6 Sit to Stand (QC): 6 Chair/Yql-wu-Cakcm Xfer(QC): 6 Toilet Transfer (QC): 6 Car Transfer (QC): 6 Does the Patient Walk: Yes Walk 10 feet (QC): 6 Walk 50ft with 2 Turns (QC): 6 Walk 150 ft (QC): 6 Walking 10ft on Uneven Surface: 6 1 Step (curb) (QC): 4 4 Steps (QC): 3 12 Steps (QC): 9 Picking up an Object (QC): 6 Does the Pt use WC or Scooter?: No Wheel 50 feet with 2 turns (QC: 9 Wheel 150 feet: 9 PT Plan Treatment/Plan Treatment Plan: Continue Plan of Care Treatment Plan: Bed Mobility, Education, Functional Activity Ney, Functional Strength, Gait, Safety, Therapeutic Exercise, Transfers Treatment Duration: May 13, 2022 Frequency: At least 5 of 7 days/Wk (IRF) Estimated Hrs Per Day: 1.5 hours per day Patient and/or Family Agrees t: Yes Safety Risks/Education Patient Education: Gait Training, Transfer Techniques, Correct Positioning, Disease Process, Safety Issues Teaching Recipient: Patient Teaching Methods: Demonstration, Discussion Response to Teaching: Verbalize Understanding, Return Demonstration, Reinforcement Needed Time Time In: 1250 Time Out: 1323 DATE: Apr 26, 2022 Total Billed Treatment Time: 33 Total Billed Treatment 1, GT20m,EX13 WARD [place] VP ANALYSIS Apr 26, 2022 13:36
--- NOTE | 2022-04-26 14:01 | Occupational Ther Daily Note ---
OT Current Status-Daily Note Subjective Pt alert, sitting in recliner. Pt agrees to therapy. Pt states that she has already had pain meds. Mental Status/Objective Patient Orientation: Person, Place, Time, Situation Attachments: IV ADL-Treatment Therapy Code Descriptions/Definitions Functional [place] Measure: 0=Not Assessed/NA 4=Minimal Assistance 1=Total Assistance 5=Supervision or Setup 2=Maximal Assistance 6=Modified [place] 3=Moderate Assistance 7=Complete IndependenceSCALE: Activities may be completed with or without assistive devices. 9-Sxhfuvxdgu-zvavfpb completes the activity by him/herself with no assistance from a helper. 5-Set-up or Clean-up Assistance-helper sets up or cleans up; patient completes activity. [place] assists only prior to or following the activity. 4-Supervision or Touching Assistance-helper provides verbal cues and/or touching/steadying and/or contact guard assistance as patient completes acti vity. Assistance may be provided throughout the activity or intermittently. 3-Partial/Moderate Assistance-helper does LESS THAN HALF the effort. [place] lifts, holds or supports trunk or limbs, but provides less than half the effort. 2-Substantial/Maximal Assistance-helper does MORE THAN HALF the effort. [place] lifts or holds trunk or limbs and provides more than half the effort. 9-Thqgyucrc-bepwer does ALL the effort. Patient does none of the effort to complete the activity. Or, the assistance of 2 or more helpers is required for the patient to complete the activity. If activity was not attempted, code reason: 7-Patient Refused. 9-Not Applicable-not attempted and the patient did not perform the activity before the current illness, exacerbation or injury. 10-Not Attempted due to Environmental Limitations-(lack of equipment, weather restraints, etc.). 88-Not Attempted due to Medical Conditions or Safety Concerns. Other Treatment Pt completed dynamic standing activities that increase balance and stamina for daily functional tasks. Pt tolerated well and completed full task prior to recovery break. After therapy, pt lying in bed with call light/phone in reach. All needs met in room. OT Skilled Nursing Goals Skilled Nursing Goals Time Frame: May 06, 2022 Acute change in mental status: 0 Inattention: 0 Disorganized thinkin Altered level of consciousness: 0 Eating (QC): 6 Oral Hygiene (QC): 6 Toileting Hygiene (QC): 6 Shower/Bathe Self (QC): 5 (With AE as needed.) Upper Body Dressing (QC): 6 Lower Body Dressing (QC): 6 (With AE as needed.) On/Off Footwear (QC): 6 (With AE as needed.) Additional Goals: 1-Demonstrate ADL Tasks, 2-Verbalize Understanding, 3- ImproveStrength/Ney 1=Demonstrate adherence to instructed precautions during ADL tasks. 2=Patient will verbalize/demonstrate understanding of assistive devices /modifications for ADL. 3=Patient will improve strength/tolerance for activity to enable patient to perform ADL's. OT Education/Plan Problem List/Assessment Assessment: Decreased Activ Tolerance Discharge Recommendations Plan/Recommendations: Continue POC Treatment Plan/Plan of Care Patient would benefit from OT for education, treatment and training to promote independence in ADL's, mobility, safety and/or upper extremity function for ADL's. Plan of Care: ADL Retraining, Functional Mobility, UE Funct Exercise/Act Treatment Duration: May 06, 2022 Frequency: At least 5 of 7 days/Wk (IRF) Estimated Hrs Per Day: 1 hour per day Rehab Potential: Good Time Start Time: 13:30 Stop Time: 14:00 DATE: Apr 26, 2022 Total Time Billed (hr/min): 30 Billed Treatment Time 1 visit-FA 2 (30 min) KELLEY SILVER Apr 26, 2022 14:01
[2022-04-26 19:48] VITALS: BP 163/33
[2022-04-26] MEDS: ROSUVASTATIN 20 MG (CRESTOR) TABLET PO SCH (21:23)
[2022-04-26] MEDS: ASPIRIN E.C. 81 MG (ECOTRIN) TAB PO SCH (21:24)
[2022-04-27] MEDS: CYANOCOBALAMIN 1,000 MCG (VITAMIN B-12) TABLET PO SCH (06:37)
[2022-04-27] MEDS: MULTIVIT W/MINERALS TAB (THERAGRAN M) PO SCH (06:37)
[2022-04-27 07:18] VITALS: BP 121/68
[2022-04-27 07:22] VITALS: BP 121/68
[2022-04-27] MEDS: PROPRANOLOL ER 80 MG CAP (INDERAL LA) PO SCH (07:49)
[2022-04-27] MEDS: APIXABAN 2.5 MG (ELIQUIS) TABLET PO SCH ×2 (07:49→20:39)
[2022-04-27] MEDS: polyethylene glycoL POWDER 17 GM (MIRALAX) PACK PO SCH ×2 (07:49→20:04)
[2022-04-27] MEDS: DOCUSATE SODIUM 100 MG (COLACE) CAP PO SCH ×2 (07:51→20:04)
[2022-04-27] MEDS: SENNA W/DOCUSATE (SENOKOT S) TABLET PO SCH ×2 (07:51→20:04)
[2022-04-27] MEDS: DICLOFENAC 1% GEL 100 GM (VOLTAREN) TUBE TP PRN (07:52)
[2022-04-27] MEDS: DICLOFENAC 1% GEL 100 GM (VOLTAREN) TUBE TOP SCH ×2 (08:33→20:39)
--- NOTE | 2022-04-27 08:52 | Physical Therapy Daily Note ---
PT Daily Note-Current Subjective Patient in recliner pre tx, agrees to PT, has 4/10 pain in right leg and pelvis Pain Section J - Health Conditions 1. Rarely or not at all 2. Occasionally 3. Frequently 4. Almost constantly 8. Unable to answer Pain Effect on Sleep: 1 Pain Interference with Therapy: 3 Pain Interference w/Day-to-Day: 2 Appearance Patient in recliner post tx with nurse call, phone, tray, all needs met. Mental Status Patient Orientation: Person, Place, Situation Transfers SCALE: Activities may be completed with or without assistive devices. 8-Rxslwgfgbq-mptlgpm completes the activity by him/herself with no assistance from a helper. 5-Set-up or Clean-up Assistance-helper sets up or cleans up; patient completes activity. [place] assists only prior to or following the activity. 4-Supervision or Touching Assistance-helper provides verbal cues and/or touching/steadying and/or contact guard assistance as patient completes activity. Assistance may be provided throughout the activity or intermittently. 3-Partial/Moderate Assistance-helper does LESS THAN HALF the effort. [place] lifts, holds or supports trunk or limbs, but provides less than half the effort. 2-Substantial/Maximal Assistance-helper does MORE THAN HALF the effort. [place] lifts or holds trunk or limbs and provides more than half the effort. 0-Lblozbsxa-ppkgui does ALL the effort. Patient does none of the effort to complete the activity. Or, the assistance of 2 or more helpers is required for the patient to complete the activity. If activity was not attempted, code reason: 7-Patient Refused. 9-Not Applicable-not attempted and the patient did not perform the activity before the current illness, exacerbation or injury. 10-Not Attempted due to Environmental Limitations-(lack of equipment, weather restraints, etc.). 88-Not Attempted due to Medical Conditions or Safety Concerns. Roll Left & Right (QC): 6 Sit to Lying (QC): 6 Lying to Sitting/Side of Bed(Q: 6 Sit to Stand (QC): 5 Chair/Skr-kx-Mzqpr Xfer(QC): 5 Weight Bearing Right Lower Extremity: Right Weight Bearing/Tolerated Left Lower Extremity: Left Weight Bearing/Tolerated Gait Training Distance: 150'x2, 100' Walk 10 feet (QC): 5 Walk 50 ft with 2 Turns(QC): 5 Walk 150 ft (QC): 5 Gait Assistive Device: FWW slow but steady ambulation, slightly antalgic, good step through and heel strike Exercises Supine Ex: Ankle pumps, Quad Set, Glut sets, Heel Slides, Short Arc Quads, Straight leg raise (AAROM), Hip abd/add (AAROM) Supine Reps: 20 NuStep Minutes: 15 NuStep Workload: 5 Treatments bed mobility and transfers, ambulation, LE ROM and strengthening Assessment Current Status: Fair Progress improving general mobility PT Usp Goals Usp Goals PT Hopper Feeder Goals Time Frame: May 06, 2022 Roll Left & Right (QC): 6 Sit to Lying (QC): 6 Lying-Sitting on Side/Bed(QC): 6 Sit to Stand (QC): 6 Chair/Evl-vj-Kjsmo Xfer(QC): 6 Toilet Transfer (QC): 6 Car Transfer (QC): 6 Does the Patient Walk: Yes Walk 10 feet (QC): 6 Walk 50ft with 2 Turns (QC): 6 Walk 150 ft (QC): 6 Walking 10ft on Uneven Surface: 6 1 Step (curb) (QC): 4 4 Steps (QC): 3 12 Steps (QC): 9 Picking up an Object (QC): 6 Does the Pt use WC or Scooter?: No Wheel 50 feet with 2 turns (QC: 9 Wheel 150 feet: 9 PT Plan Problem List Problem List: Activity Tolerance, Functional Strength, Safety, Balance, Gait, Transfer, Bed Mobility, ROM Treatment/Plan Treatment Plan: Continue Plan of Care Treatment Plan: Bed Mobility, Education, Functional Activity Ney, Functional Strength, Gait, Safety, Therapeutic Exercise, Transfers Treatment Duration: May 13, 2022 Frequency: At least 5 of 7 days/Wk (IRF) Estimated Hrs Per Day: 1.5 hours per day Patient and/or Family Agrees t: Yes Safety Risks/Education Patient Education: Gait Training, Transfer Techniques, Correct Positioning, Safety Issues Teaching Recipient: Patient Teaching Methods: Demonstration, Discussion Response to Teaching: Reinforcement Needed Time Time In: 0800 Time Out: 0900 DATE: Apr 27, 2022 Total Billed Treatment Time: 60 Total Billed Treatment 1 visit EX 30' FA 30' JIM BOLANOS PT Apr 27, 2022 08:52
--- NOTE | 2022-04-27 09:05 | Occupational Ther Daily Note ---
OT Current Status-Daily Note Subjective Pt alert, sitting in recliner. Pt agrees to therapy. No c/o pain at this time. Mental Status/Objective Patient Orientation: Person, Place, Time, Situation Attachments: IV ADL-Treatment Pt independent with eating. Independent with shower using grabbars, hand held shower, shower bench and LH sponge. Independent with oral care standing at sink. Independent with toilet transfer using FWW and grabbars. Independent in toileting using FWW and grabbars. Pt retrieves clothing using FWW independently. Pt able to complete dressing independently and will use AE as needed for lower body dressing/footwear. Therapy Code Descriptions/Definitions Functional [place] Measure: 0=Not Assessed/NA 4=Minimal Assistance 1=Total Assistance 5=Supervision or Setup 2=Maximal Assistance 6=Modified [place] 3=Moderate Assistance 7=Complete IndependenceSCALE: Activities may be completed with or without assistive devices. 8-Lfaxbpvvri-nhllwiy completes the activity by him/herself with no assistance from a helper. 5-Set-up or Clean-up Assistance-helper sets up or cleans up; patient completes activity. [place] assists only prior to or following the activity. 4-Supervision or Touching Assistance-helper provides verbal cues and/or touching/steadying and/or contact guard assistance as patient completes activity. Assistance may be provided throughout the activity or intermittently. 3-Partial/Moderate Assistance-helper does LESS THAN HALF the effort. [place] lifts, holds or supports trunk or limbs, but provides less than half the effort. 2-Substantial/Maximal Assistance-helper does MORE THAN HALF the effort. [place] lifts or holds trunk or limbs and provides more than half the effort. 8-Cjjhtmbrl-mzbnnj does ALL the effort. Patient does none of the effort to complete the activity. Or, the assistance of 2 or more helpers is required for the patient to complete the activity. If activity was not attempted, code reason: 7-Patient Refused. 9-Not Applicable-not attempted and the patient did not perform the activity before the current illness, exacerbation or injury. 10-Not Attempted due to Environmental Limitations-(lack of equipment, weather restraints, etc.). 88-Not Attempted due to Medical Conditions or Safety Concerns. Eating (QC): 6 Oral Hygiene (QC): 6 Shower/Bathe Self (QC): 6 Upper Body Dressing (QC): 6 Lower Body Dressing (QC): 6 On/Off Footwear: 6 Toileting Hygiene (QC): 6 Toilet Transfer (QC): 6 Other Treatment Pt able to retrieve laundry using FWW and jewel corner brushing machine operator. Pt did overreach 1x during retrieval though no LOB, BILLY educated pt on proper techniques when reaching while standing with FWW. Pt then able to complete laundry using FWW and jewel corner brushing machine operator independently. Pt then ambulated to gym to complete arm bike for 10 min at 20 aldana resistance, 5 min forward rotation and 5 min backward rotation with no recovery breaks. After session, pt sitting in recliner with call light/phone in reach. All needs met in room. OT Director Of Archives Goals Director Of Archives Goals Time Frame: May 06, 2022 Acute change in mental status: 0 Inattention: 0 Disorganized thinkin Altered level of consciousness: 0 Eating (QC): 6 Oral Hygiene (QC): 6 Toileting Hygiene (QC): 6 Shower/Bathe Self (QC): 5 (With AE as needed.) Upper Body Dressing (QC): 6 Lower Body Dressing (QC): 6 (With AE as needed.) On/Off Footwear (QC): 6 (With AE as needed.) Additional Goals: 1-Demonstrate ADL Tasks, 2-Verbalize Understanding, 3- ImproveStrength/Ney 1=Demonstrate adherence to instructed precautions during ADL tasks. 2=Patient will verbalize/demonstrate understanding of assistive devices/mod ifications for ADL. 3=Patient will improve strength/tolerance for activity to enable patient to perform ADL's. OT Education/Plan Problem List/Assessment Assessment: Impaired Self-Care Skills Discharge Recommendations Plan/Recommendations: Continue POC Treatment Plan/Plan of Care Patient would benefit from OT for education, treatment and training to promote independence in ADL's, mobility, safety and/or upper extremity function for ADL's. Plan of Care: ADL Retraining, Functional Mobility, UE Funct Exercise/Act Treatment Duration: May 06, 2022 Frequency: At least 5 of 7 days/Wk (IRF) Estimated Hrs Per Day: 1 hour per day Rehab Potential: Good Time Start Time: 09:00 Stop Time: 10:00 DATE: Apr 27, 2022 Total Time Billed (hr/min): 60 Billed Treatment Time 1 visit-ADL 3 (45 min) EX 1 (15 min) KELLEY SILVER Apr 27, 2022 09:05
--- NOTE | 2022-04-27 11:26 | Physical Therapy Daily Note ---
PT Daily Note-Current Subjective Patient in recliner pre tx, agrees to PT, has 5/10 pain in right pelvis Pain Section J - Health Conditions 1. Rarely or not at all 2. Occasionally 3. Frequently 4. Almost constantly 8. Unable to answer Pain Effect on Sleep: 1 Pain Interference with Therapy: 3 Pain Interference w/Day-to-Day: 2 Appearance Patient in restroom post tx, states she will call nursing when done. Mental Status Patient Orientation: Person, Place, Situation Transfers SCALE: Activities may be completed with or without assistive devices. 1-Kwfqmsfgfj-xdgamdc completes the activity by him/herself with no assistance from a helper. 5-Set-up or Clean-up Assistance-helper sets up or cleans up; patient completes activity. [place] assists only prior to or following the activity. 4-Supervision or Touching Assistance-helper provides verbal cues and/or touching/steadying and/or contact guard assistance as patient completes activi ty. Assistance may be provided throughout the activity or intermittently. 3-Partial/Moderate Assistance-helper does LESS THAN HALF the effort. [place] lifts, holds or supports trunk or limbs, but provides less than half the effort. 2-Substantial/Maximal Assistance-helper does MORE THAN HALF the effort. [place] lifts or holds trunk or limbs and provides more than half the effort. 4-Vjkhyfpkc-doqhak does ALL the effort. Patient does none of the effort to complete the activity. Or, the assistance of 2 or more helpers is required for the patient to complete the activity. If activity was not attempted, code reason: 7-Patient Refused. 9-Not Applicable-not attempted and the patient did not perform the activity before the current illness, exacerbation or injury. 10-Not Attempted due to Environmental Limitations-(lack of equipment, weather restraints, etc.). 88-Not Attempted due to Medical Conditions or Safety Concerns. Sit to Stand (QC): 6 Chair/Zqe-vl-Auaki Xfer(QC): 6 Weight Bearing Right Lower Extremity: Right Weight Bearing/Tolerated Left Lower Extremity: Left Weight Bearing/Tolerated Gait Training Distance: 150'x2 Walk 10 feet (QC): 6 Walk 50 ft with 2 Turns(QC): 6 Walk 150 ft (QC): 6 Gait Assistive Device: FWW slow but steady ambulation, a little antalgic Exercises Standing: Heel/toe raises, Marching, Mini squats Standing Reps: 15 Treatments transfers, ambulation, LE strengthening Assessment Current Status: Fair Progress independent with transfers and ambulation PT Cad Designer Goals Group Home Goals PT Group Home Goals Time Frame: May 06, 2022 Roll Left & Right (QC): 6 Sit to Lying (QC): 6 Lying-Sitting on Side/Bed(QC): 6 Sit to Stand (QC): 6 Chair/Pec-in-Emyrj Xfer(QC): 6 Toilet Transfer (QC): 6 Car Transfer (QC): 6 Does the Patient Walk: Yes Walk 10 feet (QC): 6 Walk 50ft with 2 Turns (QC): 6 Walk 150 ft (QC): 6 Walking 10ft on Uneven Surface: 6 1 Step (curb) (QC): 4 4 Steps (QC): 3 12 Steps (QC): 9 Picking up an Object (QC): 6 Does the Pt use WC or Scooter?: No Wheel 50 feet with 2 turns (QC: 9 Wheel 150 feet: 9 PT Plan Problem List Problem List: Activity Tolerance, Functional Strength, Safety, Balance, Gait, Transfer, Bed Mobility, ROM Treatment/Plan Treatment Plan: Continue Plan of Care Treatment Plan: Bed Mobility, Education, Functional Activity Ney, Functional Strength, Gait, Safety, Therapeutic Exercise, Transfers Treatment Duration: May 13, 2022 Frequency: At least 5 of 7 days/Wk (IRF) Estimated Hrs Per Day: 1.5 hours per day Patient and/or Family Agrees t: Yes Safety Risks/Education Patient Education: Gait Training, Transfer Techniques, Correct Positioning, Safety Issues Teaching Recipient: Patient Teaching Methods: Demonstration, Discussion Response to Teaching: Reinforcement Needed Time Time In: 1100 Time Out: 1130 DATE: Apr 27, 2022 Total Billed Treatment Time: 30 Total Billed Treatment 1 visit EX 10' FA 20' JIM BOLANOS PT Apr 27, 2022 11:26
[2022-04-27] MEDS ORDERED: CATHETER FLUSH 10 ML SYR IVP PRN (11:45)
--- NOTE | 2022-04-27 12:03 | PM&R Progress Note ---
Subjective HPI/CC On Admission Date Seen by Provider: Apr 27, 2022 Time Seen by Provider: 11:45 Subjective/Events-last exam 04/27/2022: Doing well DC planned for Sat [facility] 04/26/2022: Much improved Pain controlled B12 and Iron level reviewed and updated patient 04/25/2022: No major issues Walking well without a lot of pain APAP and Ultram alternating working well 04/24/2022: Doing well APAP is about all she is taking for the pain No major issues 04/23/2022: Patient doing really well Pain is improved with Ultram and Tylenol No major concerns Bowels moving She wants Voltaren gel for her neck 04/22/2022: Patient doing really well Moving around better than she thought No orthostasis noted Bowels moved yesterday Pain controlled with Ultram and Tylenol Review of Systems General: Fatigue, Malaise Objective Exam Vital Signs Vital Signs Date Time Temp Pulse Resp B/P (MAP) Pulse Ox O2 Delivery O2 Flow Rate FiO2 04/27/22 20:19 36.5 63 16 126/73 (90) 99 Room Air Capillary Refill : General Appearance: No Apparent Distress, WD/WN, Chronically ill HEENT: PERRL/EOMI, Normal ENT Inspection, Pharynx Normal Neck: Full Range of Motion, Normal Inspection, Non Tender, Supple, Carotid Bruit Respiratory: Chest Non Tender, Lungs Clear, Normal Breath Sounds, No Accessory Muscle Use, No Respiratory Distress Cardiovascular: No Edema, No Gallop, No JVD, No Murmur, Normal Peripheral Pulses, Irregularly Irregular Gastrointestinal: Normal Bowel Sounds, No Organomegaly, No Pulsatile Mass, Non Tender, Soft Back: Normal Inspection, No CVA Tenderness, No Vertebral Tenderness Extremity: Normal Capillary Refill, Normal Inspection, Normal Range of Motion (legs due to pelvic fracture pain), Non Tender, No Calf Tenderness, No Pedal Edema Neurologic/Psychiatric: Alert, Oriented x3, No Motor/Sensory Deficits, Normal Mood/Affect, Abnormal Gait, Motor Weakness (lower extremities) Skin: Normal Color, Warm/Dry Lymphatic: No Adenopathy Results/Procedures Lab Patient resulted labs reviewed. FIM Transfers Therapy Code Descriptions/Definitions Functional [place] Measure: 0=Not Assessed/NA 4=Minimal Assistance 1=Total Assistance 5=Supervision or Setup 2=Maximal Assistance 6=Modified [place] 3=Moderate Assistance 7=Complete IndependenceSCALE: Activities may be completed with or without assistive devices. 1-Fvcnrwriiz-ejehsod completes the activity by him/herself with no assistance from a helper. 5-Set-up or Clean-up Assistance-helper sets up or cleans up; patient completes activity. [place] assists only prior to or following the activity. 4-Supervision or Touching Assistance-helper provides verbal cues and/or touching/steadying and/or contact guard assistance as patient completes activity. Assistance may be provided throughout the activity or intermittently. 3-Partial/Moderate Assistance-helper does LESS THAN HALF the effort. [place] lifts, holds or supports trunk or limbs, but provides less than half the effort. 2-Substantial/Maximal Assistance-helper does MORE THAN HALF the effort. [place] lifts or holds trunk or limbs and provides more than half the effort. 2-Dvmahxmwc-tvdjvk does ALL the effort. Patient does none of the effort to complete the activity. Or, the assistance of 2 or more helpers is required for the patient to complete the activity. If activity was not attempted, code reason: 7-Patient Refused. 9-Not Applicable-not attempted and the patient did not perform the activity before the current illness, exacerbation or injury. 10-Not Attempted due to Environmental Limitations-(lack of equipment, weather restraints, etc.). 88-Not Attempted due to Medical Conditions or Safety Concerns. Roll Left to Right (QC): 6 Sit to Lying (QC): 6 Sit to Stand (QC): 6 Chair/Bwc-vh-Mvroq Xfer(QC): 6 Car Transfer (QC): 5 Gait Training Does the Patient Walk?: Yes Distance: 150'x2 Walk 10 feet (QC): 6 Walk 50 ft with 2 Turns(QC): 6 Walk 150 ft (QC): 6 Walking 10ft/uneven surface-QC: 4 Gait Persons Needed: 1 Gait Assistive Device: FWW Wheelchair Training Does the Pt Use a Wheelchair?: No Wheel 50 ft with 2 turns (QC): 9 Wheel 150 ft (QC): 9 Stair Training #of Steps: 0 1 Step (curb) (QC): 88 4 Steps (QC): 88 12 Steps (QC): 88 Balance Picking up an Object (QC): 5 ADL-Treatment Eating (QC): 6 Oral Hygiene (QC): 6 Shower/Bathe Self (QC): 6 Upper Body Dressing (QC): 6 Lower Body Dressing (QC): 6 On/Off Footwear (QC): 6 Toileting Hygiene (QC): 6 Toilet Transfer (QC): 6 Assessment/Plan Assessment and Plan Assess & Plan/Chief Complaint Assessment: Pelvic fracture sustained in a fall with severe pain and debility Chronic lower leg edema Orthostasis causing slow recovery (it occurred after her hip revision in 2019) HTN HLP CAD on ASA GERD Osteoporosis Pacemaker AF on OAC Aortic stenosis s/p TAVR repair OA Neuropathy Angina Thyroid nodule Nausea B12 deficiency Iron deficiency Plan: Pain control Rehab protocol Monitor BP 04/22/2022: Pain control Supportive care 04/23/2022: Voltaren gel for neck pain 04/24/2022: Monitor pain 04/25/2022: Supportive care Monitor pain 04/26/2022: B12 and Iron supplements 04/27/2022: DC Sat B12 to be maintained (1) Pelvic fracture (2) GERD (gastroesophageal reflux disease) (3) IBS (irritable bowel syndrome) (4) Pacemaker (5) Osteoporosis (6) History of coronary artery stent placement (7) History of left hip replacement Status: VANE Weston DO Apr 27, 2022 12:03
[2022-04-27] MEDS: ACETAMINOPHEN 500 MG TAB (TYLENOL) PO PRN ×2 (13:10→20:39)
[2022-04-27] MEDS: CATHETER FLUSH 10 ML SYR IVP SCH ×2 (13:11→20:39)
--- NOTE | 2022-04-27 13:47 | Occupational Ther Daily Note ---
OT Current Status-Daily Note Subjective Pt alert, lying in bed. Pt agrees to therapy. No c/o pain. Mental Status/Objective Patient Orientation: Person, Place, Time, Situation Attachments: IV ADL-Treatment Pt able to go from supine <-> EOB independently. Independent with donning/doffing houseshoes. Therapy Code Descriptions/Definitions Functional [place] Measure: 0=Not Assessed/NA 4=Minimal Assistance 1=Total Assistance 5=Supervision or Setup 2=Maximal Assistance 6=Modified [place] 3=Moderate Assistance 7=Complete IndependenceSCALE: Activities may be completed with or without assistive devices. 6-Tkmwtxbqbw-vzsegqk completes the activity by him/herself with no assistance from a helper. 5-Set-up or Clean-up Assistance-helper sets up or cleans up; patient completes activity. [place] assists only prior to or following the activity. 4-Supervision or Touching Assistance-helper provides verbal cues and/or touching/steadying and/or contact guard assistance as patient completes activity. Assistance may be provided throughout the activity or intermittently. 3-Partial/Moderate Assistance-helper does LESS THAN HALF the effort. [place] lifts, holds or supports trunk or limbs, but provides less than half the effort. 2-Substantial/Maximal Assistance-helper does MORE THAN HALF the effort. [place] l ifts or holds trunk or limbs and provides more than half the effort. 7-Ppuefdvct-rzjsmx does ALL the effort. Patient does none of the effort to complete the activity. Or, the assistance of 2 or more helpers is required for the patient to complete the activity. If activity was not attempted, code reason: 7-Patient Refused. 9-Not Applicable-not attempted and the patient did not perform the activity before the current illness, exacerbation or injury. 10-Not Attempted due to Environmental Limitations-(lack of equipment, weather restraints, etc.). 88-Not Attempted due to Medical Conditions or Safety Concerns. On/Off Footwear: 6 Other Treatment Pt completed kitchen mobility using FWW by reaching and grasping items in/out of cabinets/oven/microwave/freezer/refrigerator independently. Pt working on stepping into shower by simulating stepping over 1-2" objects. Increased pain when pt uses only one UE to support self when stepping in. Pt able to step into shower with FWW, stating that her shower at home is large enough to allow her to do this. Pt is unable to push FWW out of tub. Pt will need assistance with positioning FWW during shower transfers. After session, pt lying in bed with call light/phone in reach. All needs met in room. OT Elastic Attacher Coverstitch Goals Elastic Attacher Coverstitch Goals Time Frame: May 06, 2022 Acute change in mental status: 0 Inattention: 0 Disorganized thinkin Altered level of consciousness: 0 Eating (QC): 6 Oral Hygiene (QC): 6 Toileting Hygiene (QC): 6 Shower/Bathe Self (QC): 5 (With AE as needed.) Upper Body Dressing (QC): 6 Lower Body Dressing (QC): 6 (With AE as needed.) On/Off Footwear (QC): 6 (With AE as needed.) Additional Goals: 1-Demonstrate ADL Tasks, 2-Verbalize Understanding, 3- ImproveStrength/Ney 1=Demonstrate adherence to instructed precautions during ADL tasks. 2=Patient will verbalize/demonstrate understanding of assistive devices/modifications for ADL. 3=Patient will improve strength/tolerance for activity to enable patient to perform ADL's. OT Education/Plan Problem List/Assessment Assessment: Impaired Self-Care Skills Discharge Recommendations Plan/Recommendations: Continue POC Treatment Plan/Plan of Care Patient would benefit from OT for education, treatment and training to promote independence in ADL's, mobility, safety and/or upper extremity function for ADL's. Plan of Care: ADL Retraining, Functional Mobility, UE Funct Exercise/Act Treatment Duration: May 06, 2022 Frequency: At least 5 of 7 days/Wk (IRF) Estimated Hrs Per Day: 1 hour per day Rehab Potential: Good Time Start Time: 12:30 Stop Time: 13:00 DATE: Apr 27, 2022 Total Time Billed (hr/min): 30 Billed Treatment Time 1 visit-FA 2 (30 min) KELLEY SILVER Apr 27, 2022 13:47
[2022-04-27 20:19] VITALS: BP 126/73
[2022-04-27] MEDS: ASPIRIN E.C. 81 MG (ECOTRIN) TAB PO SCH (20:39)
[2022-04-27] MEDS: ROSUVASTATIN 20 MG (CRESTOR) TABLET PO SCH (20:39)
[2022-04-28] MEDS: CATHETER FLUSH 10 ML SYR IVP SCH ×3 (06:11→20:32)
[2022-04-28] MEDS: MULTIVIT W/MINERALS TAB (THERAGRAN M) PO SCH (06:11)
[2022-04-28] MEDS: CYANOCOBALAMIN 1,000 MCG (VITAMIN B-12) TABLET PO SCH (06:11)
[2022-04-28] MEDS: ACETAMINOPHEN 500 MG TAB (TYLENOL) PO PRN ×2 (06:12→20:32)
--- NOTE | 2022-04-28 06:19 | PM&R Progress Note ---
Subjective HPI/CC On Admission Date Seen by Provider: Apr 28, 2022 Time Seen by Provider: 12:30 Subjective/Events-last exam 04/28/2022: DC planned for tomorrow No pain reported except last night when 1/ Tramadol helped 04/27/2022: Doing well DC planned for Sat [facility] 04/26/2022: Much improved Pain controlled B12 and Iron level reviewed and updated patient 04/25/2022: No major issues Walking well without a lot of pain APAP and Ultram alternating working well 04/24/2022: Doing well APAP is about all she is taking for the pain No major issues 04/23/2022: Patient doing really well Pain is improved with Ultram and Tylenol No major concerns Bowels moving She wants Voltaren gel for her neck 04/22/2022: Patient doing really well Moving around better than she thought No orthostasis noted Bowels moved yesterday Pain controlled with Ultram and Tylenol Review of Systems General: Fatigue, Malaise Objective Exam Vital Signs Vital Signs Date Time Temp Pulse Resp B/P (MAP) Pulse Ox O2 Delivery O2 Flow Rate FiO2 04/28/22 08:54 Room Air 04/28/22 07:17 36.6 66 16 149/76 (100) 99 Capillary Refill : General Appearance: No Apparent Distress, WD/WN, Chronically ill HEENT: PERRL/EOMI, Normal ENT Inspection, Pharynx Normal Neck: Full Range of Motion, Normal Inspection, Non Tender, Supple, Carotid Bruit Respiratory: Chest Non Tender, Lungs Clear, Normal Breath Sounds, No Accessory Muscle Use, No Respiratory Distress Cardiovascular: No Edema, No Gallop, No JVD, No Murmur, Normal Peripheral Pulses, Irregularly Irregular Gastrointestinal: Normal Bowel Sounds, No Organomegaly, No Pulsatile Mass, Non Tender, Soft Back: Normal Inspection, No CVA Tenderness, No Vertebral Tenderness Extremity: Normal Capillary Refill, Normal Inspection, Normal Range of Motion (legs due to pelvic fracture pain), Non Tender, No Calf Tenderness, No Pedal Edema Neurologic/Psychiatric: Alert, Oriented x3, No Motor/Sensory Deficits, Normal Mood/Affect, Abnormal Gait, Motor Weakness (lower extremities) Skin: Normal Color, Warm/Dry Lymphatic: No Adenopathy Results/Procedures Lab Patient resulted labs reviewed. FIM Transfers Therapy Code Descriptions/Definitions Functional [place] Measure: 0=Not Assessed/NA 4=Minimal Assistance 1=Total Assistance 5=Supervision or Setup 2=Maximal Assistance 6=Modified [place] 3=Moderate Assistance 7=Complete IndependenceSCALE: Activities may be completed with or without assistive devices. 3-Qnhasqbblp-ozuofvv completes the activity by him/herself with no assistance from a helper. 5-Set-up or Clean-up Assistance-helper sets up or cleans up; patient completes activity. [place] assists only prior to or following the activity. 4-Supervision or Touching Assistance-helper provides verbal cues and/or touching/steadying and/or contact guard assistance as patient completes activity. Assistance may be provided throughout the activity or intermittently. 3-Partial/Moderate Assistance-helper does LESS THAN HALF the effort. [place] lifts, holds or supports trunk or limbs, but provides less than half the effort. 2-Substantial/Maximal Assistance-helper does MORE THAN HALF the effort. [place] lifts or holds trunk or limbs and provides more than half the effort. 1-Uwuoyqdbo-tidbsa does ALL the effort. Patient does none of the effort to complete the activity. Or, the assistance of 2 or more helpers is required for the patient to complete the activity. If activity was not attempted, code reason: 7-Patient Refused. 9-Not Applicable-not attempted and the patient did not perform the activity before the current illness, exacerbation or injury. 10-Not Attempted due to Environmental Limitations-(lack of equipment, weather restraints, etc.). 88-Not Attempted due to Medical Conditions or Safety Concerns. Roll Left to Right (QC): 6 Sit to Lying (QC): 6 Sit to Stand (QC): 6 Chair/Tpp-qd-Prkoi Xfer(QC): 6 Car Transfer (QC): 5 Gait Training Does the Patient Walk?: Yes Distance: 150'x2 Walk 10 feet (QC): 6 Walk 50 ft with 2 Turns(QC): 6 Walk 150 ft (QC): 6 Walking 10ft/uneven surface-QC: 4 Gait Persons Needed: 1 Gait Assistive Device: FWW Wheelchair Training Does the Pt Use a Wheelchair?: No Wheel 50 ft with 2 turns (QC): 9 Wheel 150 ft (QC): 9 Stair Training #of Steps: 0 1 Step (curb) (QC): 88 4 Steps (QC): 88 12 Steps (QC): 88 Balance Picking up an Object (QC): 5 ADL-Treatment Eating (QC): 6 Oral Hygiene (QC): 6 Shower/Bathe Self (QC): 6 Upper Body Dressing (QC): 6 Lower Body Dressing (QC): 6 On/Off Footwear (QC): 6 Toileting Hygiene (QC): 6 Toilet Transfer (QC): 6 Assessment/Plan Assessment and Plan Assess & Plan/Chief Complaint Assessment: Pelvic fracture sustained in a fall with severe pain and debility Chronic lower leg edema Orthostasis causing slow recovery (it occurred after her hip revision in 2019) HTN HLP CAD on ASA GERD Osteoporosis Pacemaker AF on OAC Aortic stenosis s/p TAVR repair OA Neuropathy Angina Thyroid nodule Nausea B12 deficiency Iron deficiency Plan: Pain control Rehab protocol Monitor BP 04/22/2022: Pain control Supportive care 04/23/2022: Voltaren gel for neck pain 04/24/2022: Monitor pain 04/25/2022: Supportive care Monitor pain 04/26/2022: B12 and Iron supplements 04/27/2022: DC Sat B12 to be maintained 04/28/2022: DC planned for tomorrow (1) Pelvic fracture (2) GERD (gastroesophageal reflux disease) (3) IBS (irritable bowel syndrome) (4) Pacemaker (5) Osteoporosis (6) History of coronary artery stent placement (7) History of left hip replacement Status: VANE Weston DO Apr 28, 2022 06:19
[2022-04-28 07:17] VITALS: BP 149/76
[2022-04-28] MEDS: PROPRANOLOL ER 80 MG CAP (INDERAL LA) PO SCH (07:58)
[2022-04-28] MEDS: APIXABAN 2.5 MG (ELIQUIS) TABLET PO SCH ×2 (07:58→20:31)
[2022-04-28] MEDS: DICLOFENAC 1% GEL 100 GM (VOLTAREN) TUBE TOP SCH ×2 (08:01→20:49)
[2022-04-28] MEDS: IRON SUCROSE 200 MG/10 ML (VENOFER) VIAL IV SCH (08:01)
[2022-04-28] MEDS: DOCUSATE SODIUM 100 MG (COLACE) CAP PO SCH ×2 (08:07→20:48)
[2022-04-28] MEDS: SENNA W/DOCUSATE (SENOKOT S) TABLET PO SCH ×2 (08:08→20:49)
[2022-04-28] MEDS: polyethylene glycoL POWDER 17 GM (MIRALAX) PACK PO SCH ×2 (08:08→20:49)
--- NOTE | 2022-04-28 08:53 | Physical Therapy Daily Note ---
PT Daily Note-Current Subjective Patient in recliner pre tx, agrees to PT, has 6/10 pain in right pelvic area, nurse gives pain meds. Pain Section J - Health Conditions 1. Rarely or not at all 2. Occasionally 3. Frequently 4. Almost constantly 8. Unable to answer Pain Effect on Sleep: 1 Pain Interference with Therapy: 3 Pain Interference w/Day-to-Day: 2 Appearance Patient in recliner post tx with nurse call, phone, tray, all needs met. Mental Status Patient Orientation: Person, Place, Situation, Normal For Age Transfers SCALE: Activities may be completed with or without assistive devices. 5-Nkoxznfojb-rymiqbu completes the activity by him/herself with no assistance from a helper. 5-Set-up or Clean-up Assistance-helper sets up or cleans up; patient completes activity. [place] assists only prior to or following the activity. 4-Supervision or Touching Assistance-helper provides verbal cues and/or touching/steadying and/or contact guard assistance as patient completes activity. Assistance may be provided throughout the activity or intermittently. 3-Partial/Moderate Assistance-helper does LESS THAN HALF the effort. [place] lifts, holds or supports trunk or limbs, but provides less than half the effort. 2-Substantial/Maximal Assistance-helper does MORE THAN HALF the effort. [place] lifts or holds trunk or limbs and provides more than half the effort. 8-Ffmcvqdbs-rilual does ALL the effort. Patient does none of the effort to c omplete the activity. Or, the assistance of 2 or more helpers is required for the patient to complete the activity. If activity was not attempted, code reason: 7-Patient Refused. 9-Not Applicable-not attempted and the patient did not perform the activity before the current illness, exacerbation or injury. 10-Not Attempted due to Environmental Limitations-(lack of equipment, weather restraints, etc.). 88-Not Attempted due to Medical Conditions or Safety Concerns. Roll Left & Right (QC): 6 Sit to Lying (QC): 6 Lying to Sitting/Side of Bed(Q: 6 Sit to Stand (QC): 6 Chair/Pyj-bc-Xmyay Xfer(QC): 6 Toilet Transfer (QC): 6 Car Transfer (QC): 6 Patient performs rolling and supine <-> sit with independence, sit <-> stand and transfers with independence, car transfer independent. Weight Bearing Right Lower Extremity: Right Weight Bearing/Tolerated Left Lower Extremity: Left Weight Bearing/Tolerated Gait Training Distance: 150', 100' Walk 10 feet (QC): 6 Walk 50 ft with 2 Turns(QC): 6 Walk 150 ft (QC): 6 Walking 10ft/uneven surface-QC: 6 Gait Assistive Device: FWW Patient can ambulate 150' with a rolling walker with independence (including 50' with at least 2 turns of 90 degrees and 10' over an uneven surface), gait is slow but steady, slightly antalgic Wheelchair Training Wheel 50 ft with 2 turns (QC): 9 Wheel 150 ft (QC): 9 Stair Training Stair Training: Handrails/: 2 handrails #of Steps: 4 1 Step (curb) (QC): 4 4 Steps (QC): 4 12 Steps (QC): 88 Stairs: Pattern: Step to Patient can go up and down 4 steps using 2 handrails with CGA, cues for foot placement, had more pain with this Balance Picking up an Object (QC): 6 (using it technical support specialist) Exercises NuStep Minutes: 15 NuStep Workload: 4 Neuromuscular Patient scored 25/28 on the [place], only missed points because she uses a walker. Treatments bed mobility and transfers, ambulation, stair training, gait training, strengthening Assessment Current Status: Fair Progress told clinical coordinator about her balance score, he will then check with nursing to see if she can then be independent in her room PT Senior Living Goals Glycerine Plant Operator Goals PT Senior Living Goals Time Frame: May 06, 2022 Roll Left & Right (QC): 6 Sit to Lying (QC): 6 Lying-Sitting on Side/Bed(QC): 6 Sit to Stand (QC): 6 Chair/Web-qr-Eziev Xfer(QC): 6 Toilet Transfer (QC): 6 Car Transfer (QC): 6 Does the Patient Walk: Yes Walk 10 feet (QC): 6 Walk 50ft with 2 Turns (QC): 6 Walk 150 ft (QC): 6 Walking 10ft on Uneven Surface: 6 1 Step (curb) (QC): 4 4 Steps (QC): 3 12 Steps (QC): 9 Picking up an Object (QC): 6 Does the Pt use WC or Scooter?: No Wheel 50 feet with 2 turns (QC: 9 Wheel 150 feet: 9 PT Plan Problem List Problem List: Activity Tolerance, Functional Strength, Safety, Balance, Gait, Transfer, Bed Mobility, ROM Treatment/Plan Treatment Plan: Continue Plan of Care Treatment Plan: Bed Mobility, Education, Functional Activity Ney, Functional Strength, Gait, Safety, Therapeutic Exercise, Transfers Treatment Duration: May 13, 2022 Frequency: At least 5 of 7 days/Wk (IRF) Estimated Hrs Per Day: 1.5 hours per day Patient and/or Family Agrees t: Yes Safety Risks/Education Patient Education: Gait Training, Transfer Techniques, Steps, Correct Posi tioning, Safety Issues Teaching Recipient: Patient Teaching Methods: Demonstration, Discussion Response to Teaching: Reinforcement Needed Time Time In: 0800 Time Out: 0900 DATE: Apr 28, 2022 Total Billed Treatment Time: 60 Total Billed Treatment 1 visit EX 15' FA 45' JIM BOLANOS PT Apr 28, 2022 08:53
--- NOTE | 2022-04-28 09:18 | Occupational Ther Daily Note ---
OT Current Status-Daily Note Subjective Pt alert, sitting in recliner. Pt agrees to therapy. No c/o pain at this time. Mental Status/Objective Patient Orientation: Person, Place, Time, Situation Attachments: IV ADL-Treatment Pt agrees to shower. Pt independently retrieves clothing and shower supplies using FWW. Independent with toileting and toilet transfer using FWW and grabbars. Independent showering using shower bench, grabbar, hand held shower and LH sponge. Pt completes upper/lower body dressing independently, will use AE when needed for lower body dressing. Completes footwear using sock aide and dons/doff shoes by self. Pt able to stand at sink to complete oral care independently. Pt has demonstrated ability to complete eating independently. Therapy Code Descriptions/Definitions Functional [place] Measure: 0=Not Assessed/NA 4=Minimal Assistance 1=Total Assistance 5=Supervision or Setup 2=Maximal Assistance 6=Modified [place] 3=Moderate Assistance 7=Complete IndependenceSCALE: Activities may be completed with or without assistive devices. 1-Jmbswmecis-uttifkh completes the activity by him/herself with no assistance from a helper. 5-Set-up or Clean-up Assistance-helper sets up or cleans up; patient completes activity. [place] assists only prior to or following the activity. 4-Supervision or Touching Assistance-helper provides verbal cues and/or touching/steadying and/or contact guard assistance as patient completes activity. Assistance may be provided throughout the activity or intermittently. 3-Partial/Moderate Assistance-helper does LESS THAN HALF the effort. [place] lifts, holds or supports trunk or limbs, but provides less than half the effort. 2-Substantial/Maximal Assistance-helper does MORE THAN HALF the effort. [place] lifts or holds trunk or limbs and provides more than half the effort. 0-Ghjchlmno-mcjcvo does ALL the effort. Patient does none of the effort to complete the activity. Or, the assistance of 2 or more helpers is required for the patient to complete the activity. If activity was not attempted, code reason: 7-Patient Refused. 9-Not Applicable-not attempted and the patient did not perform the activity before the current illness, exacerbation or injury. 10-Not Attempted due to Environmental Limitations-(lack of equipment, weather restraints, etc.). 88-Not Attempted due to Medical Conditions or Safety Concerns. Eating (QC): 6 Oral Hygiene (QC): 6 Shower/Bathe Self (QC): 6 Upper Body Dressing (QC): 6 Lower Body Dressing (QC): 6 On/Off Footwear: 6 Toileting Hygiene (QC): 6 Toilet Transfer (QC): 6 Other Treatment Pt able to retrieve laundry from floor and place in walker basket then take to laundry and complete independently. Pt completed FWW functional tasks to flower picker navarrete bags using optical mechanic apprentice at varying heights independently. After session, pt sitting in recliner with call light/phone in reach. All needs met. BIMS CAM BIMS Expression of Ideas and Wants: Without Difficulty Understanding Verbal Content: Understands Brief Interview/Mental Status: Yes IRF EMILIA BIMS: IRF EIMLIA BIMS Response (Comments) Value Repitition of Three Words Three 3 Recalls Socks Yes, No Cue Required 2 Recalls Blue Yes, No Cue Required 2 Recalls Bed Yes, No Cue Required 2 Year Correct 3 Month Accurate Within 5 Days 2 Day Correct 1 Total 15 Patient Normally Able to Recal: Current Session, Location of own room, Staff Names and faces, That he/she in a [facility] Should Staff Asses. Mental St.: No CAM Mental Status Change/Baseline: 0 Inattention: 0 Disorganized thinkin Altered level of consciousness: 0 OT Alf Goals Alf Goals Time Frame: May 06, 2022 Acute change in mental status: 0 Inattention: 0 Disorganized thinkin Altered level of consciousness: 0 Eating (QC): 6 (met) Oral Hygiene (QC): 6 (met) Toileting Hygiene (QC): 6 (met) Shower/Bathe Self (QC): 5 (With AE as needed. met) Upper Body Dressing (QC): 6 (met) Lower Body Dressing (QC): 6 (With AE as needed. met) On/Off Footwear (QC): 6 (With AE as needed. met) Additional Goals: 1-Demonstrate ADL Tasks, 2-Verbalize Understanding, 3-ImproveStrength/Ney 1=Demonstrate adherence to instructed precautions during ADL tasks. 2=Patient will verbalize/demonstrate understanding of assistive devices/modifications for ADL. 3=Patient will improve strength/tolerance for activity to enable patient to perform ADL's. OT Education/Plan Problem List/Assessment Assessment: Impaired Self-Care Skills Discharge Recommendations Plan/Recommendations: Continue POC Treatment Plan/Plan of Care Patient would benefit from OT for education, treatment and training to promote independence in ADL's, mobility, safety and/or upper extremity function for ADL's. Plan of Care: ADL Retraining, Functional Mobility, UE Funct Exercise/Act Treatment Duration: May 06, 2022 Frequency: At least 5 of 7 days/Wk (IRF) Estimated Hrs Per Day: 1 hour per day Rehab Potential: Good Time Start Time: 09:00 Stop Time: 10:00 DATE: Apr 28, 2022 Total Time Billed (hr/min): 60 Billed Treatment Time 1 visit-ADL 3 (40 min) FA 1 (20 min) KELLEY SILVER Apr 28, 2022 09:18
--- NOTE | 2022-04-28 11:25 | Physical Therapy Daily Note ---
PT Daily Note-Current Subjective Patient in recliner pre tx, agrees to PT, has 4/10 pain in right pelvis. Pain Section J - Health Conditions 1. Rarely or not at all 2. Occasionally 3. Frequently 4. Almost constantly 8. Unable to answer Pain Effect on Sleep: 1 Pain Interference with Therapy: 3 Pain Interference w/Day-to-Day: 2 Appearance Patient in recliner post tx with nurse call, phone, tray, all needs met. Mental Status Patient Orientation: Normal For Age Transfers SCALE: Activities may be completed with or without assistive devices. 7-Aflhqisbmv-lvilxyv completes the activity by him/herself with no assistance from a helper. 5-Set-up or Clean-up Assistance-helper sets up or cleans up; patient completes activity. [place] assists only prior to or following the activity. 4-Supervision or Touching Assistance-helper provides verbal cues and/or touching/steadying and/or contact guard assistance as patient completes activity. Assistance may be provided throughout the activity or intermittently. 3-Partial/Moderate Assistance-helper does LESS THAN HALF the effort. [place] lifts, holds or supports trunk or limbs, but provides less than half the effort. 2-Substantial/Maximal Assistance-helper does MORE THAN HALF the effort. [place] lifts or holds trunk or limbs and provides more than half the effort. 1-Pdthedjtv-ncehvy does ALL the effort. Patient does none of the effort to complete the activity. Or, the assistance of 2 or more helpers is required for the patient to complete the activity. If activity was not attempted, code reason: 7-Patient Refused. 9-Not Applicable-not attempted and the patient did not perform the activity before the current illness, exacerbation or injury. 10-Not Attempted due to Environmental Limitations-(lack of equipment, weather restraints, etc.). 88-Not Attempted due to Medical Conditions or Safety Concerns. Sit to Stand (QC): 6 Chair/Nnl-na-Crntt Xfer(QC): 6 Patient uses the restroom after getting back to her room, doesn't need any assist Weight Bearing Right Lower Extremity: Right Weight Bearing/Tolerated Left Lower Extremity: Left Weight Bearing/Tolerated Gait Training Distance: 150'x2, 100' Walk 10 feet (QC): 6 Walk 50 ft with 2 Turns(QC): 6 Walk 150 ft (QC): 6 Gait Assistive Device: FWW Exercises Standing: Hip Abduction, Heel/toe raises, Marching, Mini squats, Side steps (down and back 8' each way x3) Treatments transfers, ambulation, strengthening Assessment Current Status: Fair Progress independent with transfers and ambulation PT Dumpster Operator Goals Dumpster Operator Goals PT Skilled Nursing Goals Time Frame: May 06, 2022 Roll Left & Right (QC): 6 Sit to Lying (QC): 6 Lying-Sitting on Side/Bed(QC): 6 Sit to Stand (QC): 6 Chair/Utk-zs-Dwfzo Xfer(QC): 6 Toilet Transfer (QC): 6 Car Transfer (QC): 6 Does the Patient Walk: Yes Walk 10 feet (QC): 6 Walk 50ft with 2 Turns (QC): 6 Walk 150 ft (QC): 6 Walking 10ft on Uneven Surface: 6 1 Step (curb) (QC): 4 4 Steps (QC): 3 12 Steps (QC): 9 Picking up an Object (QC): 6 Does the Pt use WC or Scooter?: No Wheel 50 feet with 2 turns (QC: 9 Wheel 150 feet: 9 PT Plan Problem List Problem List: Activity Tolerance, Functional Strength, Safety, Balance, Gait, Transfer, Bed Mobility, ROM Treatment/Plan Treatment Plan: Continue Plan of Care Treatment Plan: Bed Mobility, Education, Functional Activity Ney, Functional Strength, Gait, Safety, Therapeutic Exercise, Transfers Treatment Duration: May 13, 2022 Frequency: At least 5 of 7 days/Wk (IRF) Estimated Hrs Per Day: 1.5 hours per day Patient and/or Family Agrees t: Yes Safety Risks/Education Patient Education: Gait Training, Transfer Techniques, Correct Positioning, Safety Issues Teaching Recipient: Patient Teaching Methods: Demonstration, Discussion Response to Teaching: Reinforcement Needed Time Time In: 1100 Time Out: 1130 DATE: Apr 28, 2022 Total Billed Treatment Time: 30 Total Billed Treatment 1 visit EX 15' FA 15' JIM BOLANOS PT Apr 28, 2022 11:25
[2022-04-28] MEDS ORDERED: APIX2.5T PO (12:35)
[2022-04-28] MEDS ORDERED: CYAN-41 PO (12:35)
[2022-04-28] MEDS ORDERED: TRM50T PO (12:35)
--- NOTE | 2022-04-28 12:37 | D/C HH Face to Face Order ---
D/C Face to Face Orders Reconcile Patient Problems Problems Reviewed?: Yes Instructions for Patient Via Yana Eveo, Patient Instructions/FollowUp: PCP 1 week Physician to follow Patient: [facility] Discharge Diet for Home: No Restrictions Patient Problems: Pelvic fracture Patient Data-Allergies,Ht & Wt Patient Allergies: Coded Allergies: amiodarone (Verified Allergy, Severe, RESPIRATORY, 10/05/18) Sulfa (Sulfonamide Antibiotics) (Verified Allergy, Intermediate, LIPS SWELL UP, 10/05/18) doxycycline (Verified Allergy, Mild, NAUSEA, HEADACHE, 10/05/18) mexiletine (Verified Allergy, Mild, HEADACHE, N/V, 10/05/18) nitrofurantoin (Verified Allergy, Mild, NAUSEA, 10/05/18) Height (Feet): 5 Height (Inches): 3.00 Weight (Pounds): 149 Weight (Ounces): 9.0 Home Health Need/Face to Face Date of Face to Face: Apr 28, 2022 Clinical Findings: Generalized weakness and fatigue, Instability, Muscle weakness, Pain with ambulation I have seen Pt [id number]: Yes Discharged To: Home Diagnosis/Conditions: Debility Patient is Homebound due to: Muscle weakness, Pain w/ambulation Homebound Status Due to the above stated illness, injury or surgical procedure (medical condition or diagnosis) and associated clinical findings, the patient is homebound because of his/her inability to leave home except with aid of a supportive device and/or person AND leaving the home requires a considerable and taxing effort or is medically contraindicated. Pt req the following assistanc: Walker Certify Stmt I certify that this patient is under my care and that I, a nurse practitioner or a physician; a cafe assistant working with me, had a face to face encounter that - meets the physician face to face encounter requirements with this patient as dated. VANE KRISHNA DO Apr 28, 2022 12:36
--- NOTE | 2022-04-28 12:59 | Occupational Ther Daily Note ---
OT Current Status-Daily Note Subjective Pt alert, sitting in recliner. Pt agrees to therapy. No c/o pain. Mental Status/Objective Patient Orientation: Person, Place, Time, Situation Attachments: IV ADL-Treatment Independent with toileting. Independent with grooming. Discussed and educated on shower transfer. Pt demonstrated understanding for home shower transfers. After session, pt sitting in recliner with call light/phone in reach. All needs met in room. Therapy Code Descriptions/Definitions Functional [place] Measure: 0=Not Assessed/NA 4=Minimal Assistance 1=Total Assistance 5=Supervision or Setup 2=Maximal Assistance 6=Modified [place] 3=Moderate Assistance 7=Complete IndependenceSCALE: Activities may be completed with or without assistive devices. 2-Dtzyxiftia-sshqygh completes the activity by him/herself with no assistance from a helper. 5-Set-up or Clean-up Assistance-helper sets up or cleans up; patient completes activity. [place] assists only prior to or following the activity. 4-Supervision or Touching Assistance-helper provides verbal cues and/or touching/steadying and/or contact guard assistance as patient completes activity. Assistance may be provided throughout the activity or intermittently. 3-Partial/Moderate Assistance-helper does LESS THAN HALF the effort. [place] lifts, holds or supports trunk or limbs, but provides less than half the effort. 2-Substantial/Maximal Assistance-helper does MORE THAN HALF the effort. [place] lifts or holds trunk or limbs and provides more than half the effort. 4-Vcizqvyap-rpmbyp does ALL the effort. Patient does none of the effort to complete the activity. Or, the assistance of 2 or more helpers is required for the patient to complete the activity. If activity was not attempted, code reason: 7-Patient Refused. 9-Not Applicable-not attempted and the patient did not perform the activity before the current illness, exacerbation or injury. 10-Not Attempted due to Environmental Limitations-(lack of equipment, weather restraints, etc.). 88-Not Attempted due to Medical Conditions or Safety Concerns. OT Librarian School Goals Librarian School Goals Time Frame: May 06, 2022 Acute change in mental status: 0 Inattention: 0 Disorganized thinkin Altered level of consciousness: 0 Eating (QC): 6 (met) Oral Hygiene (QC): 6 (met) Toileting Hygiene (QC): 6 (met) Shower/Bathe Self (QC): 5 (With AE as needed. met) Upper Body Dressing (QC): 6 (met) Lower Body Dressing (QC): 6 (With AE as needed. met) On/Off Footwear (QC): 6 (With AE as needed. met) Additional Goals: 1-Demonstrate ADL Tasks, 2-Verbalize Understanding, 3- ImproveStrength/Ney 1=Demonstrate adherence to instructed precautions during ADL tasks. 2=Patient will verbalize/demonstrate understanding of assistive devices/modifications for ADL. 3=Patient will improve strength/tolerance for activity to enable patient to perform ADL's. OT Education/Plan Problem List/Assessment Assessment: Impaired Self-Care Skills Discharge Recommendations Plan/Recommendations: Continue POC Treatment Plan/Plan of Care Patient would benefit from OT for education, treatment and training to promote independence in ADL's, mobility, safety and/or upper extremity function for AD L's. Plan of Care: ADL Retraining, Functional Mobility, UE Funct Exercise/Act Treatment Duration: May 06, 2022 Frequency: At least 5 of 7 days/Wk (IRF) Estimated Hrs Per Day: 1 hour per day Rehab Potential: Good Time Start Time: 12:30 Stop Time: 13:00 DATE: Apr 28, 2022 Total Time Billed (hr/min): 30 Billed Treatment Time 1 visit-ADL 1 (20 min) FA 1 (10 min) KELLEY SILVER Apr 28, 2022 12:59
[2022-04-28 20:00] VITALS: BP 113/69
[2022-04-28] MEDS: ROSUVASTATIN 20 MG (CRESTOR) TABLET PO SCH (20:31)
[2022-04-28] MEDS: DICLOFENAC 1% GEL 100 GM (VOLTAREN) TUBE TP PRN (20:31)
[2022-04-28] MEDS: ASPIRIN E.C. 81 MG (ECOTRIN) TAB PO SCH (20:32)
[2022-04-29] MEDS: CATHETER FLUSH 10 ML SYR IVP SCH (06:00)
--- NOTE | 2022-04-29 06:36 | Discharge Summary ---
Diagnosis/Chief Complaint Date of Admission Apr 21, 2022 at 17:24 Date of Discharge Discharge Date: Apr 29, 2022 Discharge Diagnosis Assessment: Pelvic fracture sustained in a fall with severe pain and debility Chronic lower leg edema Orthostasis causing slow recovery (it occurred after her hip revision in 2019) HTN HLP CAD on ASA GERD Osteoporosis Pacemaker AF on OAC Aortic stenosis s/p TAVR repair OA Neuropathy Angina Thyroid nodule Nausea B12 deficiency Iron deficiency Plan: Pain control Rehab protocol Monitor BP 04/22/2022: Pain control Supportive care 04/23/2022: Voltaren gel for neck pain 04/24/2022: Monitor pain 04/25/2022: Supportive care Monitor pain 04/26/2022: B12 and Iron supplements 04/27/2022: DC Sat B12 to be maintained 04/28/2022: DC planned for tomorrow (1) Pelvic fracture (2) GERD (gastroesophageal reflux disease) (3) IBS (irritable bowel syndrome) (4) Pacemaker (5) Osteoporosis (6) History of coronary artery stent placement (7) History of left hip replacement Status: Acute Discharge Summary Discharge Physical Examination Allergies: Coded Allergies: amiodarone (Verified Allergy, Severe, RESPIRATORY, 10/05/18) Sulfa (Sulfonamide Antibiotics) (Verified Allergy, Intermediate, LIPS SWELL UP, 10/05/18) doxycycline (Verified Allergy, Mild, NAUSEA, HEADACHE, 10/05/18) mexiletine (Verified Allergy, Mild, HEADACHE, N/V, 10/05/18) nitrofurantoin (Verified Allergy, Mild, NAUSEA, 10/05/18) Vitals & I&Os Vital Signs Date Time Temp Pulse Resp B/P (MAP) Pulse Ox O2 Delivery O2 Flow Rate FiO2 04/29/22 08:00 36.6 78 20 137/82 (100) 100 Room Air General Appearance: Alert, Oriented X3, Cooperative Respiratory: Clear to Auscultation Cardiovascular: Regular Rate Psych/Mental Status: Mental Status NL Hospital Course Was the Problem List Reviewed?: Yes Hospital course: Patient had an uncomplicated hospital course. Her pain was well controlled on Ultram and Tylenol. Bowel regimen was maintained and returned back to normal function. She participated in all therapy. Fall risk prevention was the focus. Patient was deemed stable for discharge with home health. Labs (last 24 hrs) Laboratory Tests 04/22/22 05:36: White Blood Count 8.0, Red Blood Count 3.26L, Hemoglobin 9.4L, Hematocrit 30L, Mean Corpuscular Volume 91, Mean Corpuscular Hemoglobin 29, Mean Corpuscular Hemoglobin Concent 32, Red Cell Distribution Width 14.6H, Platelet Count 136, Mean Platelet Volume 11.1, Immature Granulocyte % (Auto) 0, Neutrophils (%) (Auto) 70, Lymphocytes (%) (Auto) 16, Monocytes (%) (Auto) 12, Eosinophils (%) (Auto) 1, Basophils (%) (Auto) 0, Neutrophils # (Auto) 5.6, Lymphocytes # (Auto) 1.3, Monocytes # (Auto) 1.0, Eosinophils # (Auto) 0.0, Basophils # (Auto) 0.0, Immature Granulocyte # (Auto) 0.0, Sodium Level 137, Potassium Level 3.9, Chloride Level 105, Carbon Dioxide Level 23, Anion Gap 9, Blood Urea Nitrogen 15 , Creatinine 0.77, Estimat Glomerular Filtration Rate 76, BUN/Creatinine Ratio 19, Glucose Level 97, Calcium Level 8.8, Corrected Calcium 9.4, Iron Level 29L, Total Bilirubin 0.7, Aspartate Amino Transf (AST/SGOT) 19, Alanine Aminotran sferase (ALT/SGPT) 12, Alkaline Phosphatase 48, Total Protein 5.6L, Albumin 3.3, Vitamin B12 Level <148L Pending Labs Laboratory Tests 04/22/22 05:36: White Blood Count 8.0, Red Blood Count 3.26, Hemoglobin 9.4, Hematocrit 30, Mean Corpuscular Volume 91, Mean Corpuscular Hemoglobin 29, Mean Corpuscular Hemoglobin Concent 32, Red Cell Distribution Width 14.6, Platelet Count 136, Mean Platelet Volume 11.1, Immature Granulocyte % (Auto) 0, Neutrophils (%) (Auto) 70, Lymphocytes (%) (Auto) 16, Monocytes (%) (Auto) 12, Eosinophils (%) (Auto) 1, Basophils (%) (Auto) 0, Neutrophils # (Auto) 5.6, Lymphocytes # (Auto) 1.3, Monocytes # (Auto) 1.0, Eosinophils # (Auto) 0.0, Basophils # (Auto) 0.0, Immature Granulocyte # (Auto) 0.0, Sodium Level 137, Potassium Level 3.9, Chloride Level 105, Carbon Dioxide Level 23, Anion Gap 9, Blood Urea Nitrogen 15, Creatinine 0.77, Estimat Glomerular Filtration Rate 76, BUN/Creatinine Ratio 19, Glucose Level 97, Calcium Level 8.8, Corrected Calcium 9.4, Iron Level 29, Total Bilirubin 0.7, Aspartate Amino Transf (AST/SGOT) 19, Alanine Aminotransferase (ALT/SGPT) 12, Alkaline Phosphatase 48, Total Protein 5.6, Albumin 3.3, Vitamin B12 Level <148 Discharge Home Medications: Active Scripts Active Vitamin B-12 (Cyanocobalamin (Vitamin B-12)) 1,000 Mcg Tablet 1,000 Mcg PO DAILY@0700 365 Days Tramadol HCl 50 Mg Tablet 50 Mg PO TID PRN Eliquis (Apixaban) 2.5 Mg Tablet 2.5 Mg PO BID Reported Propranolol HCl ER (Propranolol HCl) 80 Mg Cap.sa.24h 80 Mg PO DAILY Rosuvastatin Calcium 40 Mg Tablet 40 Mg PO HS Miralax (Polyethylene Glycol 3350) 17 Gram Powd.pack 17 Gm PO DAILY PRN Ondansetron Odt (Ondansetron) 4 Mg Tab.rapdis 4 Mg SL Q8H PRN Nitroglycerin 0.4 Mg Tab.subl 0.4 Mg SL UD PRN Multivitamin 1 Each Tablet 1 Each PO DAILY Diclofenac Sodium 1 % Gel..gram. 2 Gm TP Q12H PRN Alendronate Sodium 70 Mg Tablet 70 Mg PO WEEK Tylenol Extra Strength (Acetaminophen) 500 Mg Tablet 500 Mg PO Q6H PRN Aspirin EC (Aspirin) 81 Mg Tablet.dr 81 Mg PO HS Instructions to patient/family Please see electronic discharge instructions given to patient. Diagnosis/Problems Diagnosis/Problems (1) Pelvic fracture (2) GERD (gastroesophageal reflux disease) (3) IBS (irritable bowel syndrome) (4) Pacemaker (5) Osteoporosis (6) History of coronary artery stent placement (7) History of left hip replacement Status: VANE Weston DO Apr 29, 2022 06:36
[2022-04-29] MEDS: CYANOCOBALAMIN 1,000 MCG (VITAMIN B-12) TABLET PO SCH (07:02)
[2022-04-29] MEDS: MULTIVIT W/MINERALS TAB (THERAGRAN M) PO SCH (07:02)
[2022-04-29] MEDS: PROPRANOLOL ER 80 MG CAP (INDERAL LA) PO SCH (07:55)
[2022-04-29] MEDS: APIXABAN 2.5 MG (ELIQUIS) TABLET PO SCH (07:55)
[2022-04-29] MEDS: DOCUSATE SODIUM 100 MG (COLACE) CAP PO SCH (07:56)
[2022-04-29] MEDS: polyethylene glycoL POWDER 17 GM (MIRALAX) PACK PO SCH (07:57)
[2022-04-29] MEDS: SENNA W/DOCUSATE (SENOKOT S) TABLET PO SCH (07:57)
[2022-04-29] MEDS: DICLOFENAC 1% GEL 100 GM (VOLTAREN) TUBE TP PRN (07:58)
[2022-04-29 08:00] VITALS: BP 137/82
[2022-04-29 11:00] VITALS: BP 137/82
--- NOTE | 2022-05-01 12:49 | Therapy Team Discharge Summary ---
Therapy Discharge Summary Discharge Recommendations Date of Discharge Apr 29, 2022 at 11:00 Physical Therapy Patient came to rehab post pelvic fx. Upon evaluation patient performed rolling and supine <-> sit with SBA, sit <-> stand and transfers with setup, car transfer setup, ambulated 120' with a rolling walker with CGA/SBA (including 50' with at least 2 turns of 90 degrees and 10' over an uneven surface), and picked up an object from the floor using a corrugator helper with setup. Patient has been performing bed mobility and transfer training, balance and endurance training, functional strengthening, stair training, gait training, and education. Patient has made good progress and has met all of her fdc goals. Now, patient performs rolling and supine <-> sit with independence, sit <-> stand and transfers with independence, car transfer independent, ambulate 150' with a rolling walker with independence (including 50' with at least 2 turns of 90 degrees and 10' over an uneven surface), can go up and down 4 steps using 2 handrails with CGA, and can picker machine operator an object from the floor using a corrugator helper with independence. Patient has been discharged from this facility and will be discharged from PT at this time. Roll Left to Right (QC): 6 Sit to Lying (QC): 6 Lying to Sitting/Side of Bed(Q: 6 Sit to Stand (QC): 6 Chair/Quh-ty-Eejar Xfer(QC): 6 Toilet Transfer (QC): 5 Car Transfer (QC): 6 Does the Patient Walk: Yes Mode of Locomotion: Walk Anticipated Mode of Locomotion: Walk Walk 10 feet (QC): 6 Walk 50 ft with 2 Turns(QC): 6 Walk 150 ft (QC): 6 Walking 10ft on uneven surface: 6 Distance: 120 feet Gait Assistive Device: FWW Does the Pt Use a Wheelchair: No Wheel 50 ft with 2 turns (QC): 9 Wheel 150 ft (QC): 9 #of Steps: 4 1 Step (curb) (QC): 4 4 Steps (QC): 4 12 Steps (QC): 88 Balance Sitting Static: Normal Balance Sitting Dynamic: Good Balance-Standing Static: Good Picking up an Object (QC): 6 Occupational Therapy Impaired Self-Care Skills Eating (QC): 6 Oral Hygiene (QC): 6 Shower/Bathe Self (QC): 6 Upper Body Dressing (QC): 6 Lower Body Dressing (QC): 6 On/Off Footwear (QC): 6 Toileting Hygiene (QC): 6 PT [employer]er [employer]aker Goals Group Home Goals PT [employer]er [employer]aker Goals Time Frame: May 06, 2022 Roll Left to Right (QC): 6 Sit to Lying (QC): 6 Lying-Sitting on Side/Bed(QC): 6 Sit to Stand (QC): 6 Chair/Yxx-uz-Fjxdb Xfer(QC): 6 Toilet/Commode Transfer (QC): 6 Car Transfer (QC): 6 Does the Patient Walk: Yes Walk 10 feet (QC): 6 Walk 10ft-Uneven Surface(QC): 6 Walk 50ft with 2 Turns (QC): 6 Walk 150 ft (QC): 6 Does the Pt use WC or Scooter?: No Wheel 50 feet with 2 turns (QC: 9 Wheel 150 feet: 9 1 Step (curb) (QC): 4 4 Steps (QC): 3 12 Steps (QC): 9 Picking up an Object (QC): 6 OT Group Home Goals Nicker And Breaker Goals Time Frame: May 06, 2022 Acute change in mental status: 0 Inattention: 0 Disorganized thinkin Altered level of consciousness: 0 Eating (QC): 6 (met) Oral Hygiene (QC): 6 (met) Toileting Hygiene (QC): 6 (met) Shower/Bathe Self (QC): 5 (With AE as needed. met) Upper Body Dressing (QC): 6 (met) Lower Body Dressing (QC): 6 (With AE as needed. met) On/Off Footwear (QC): 6 (With AE as needed. met) Additional Goals: 1-Demonstrate ADL Tasks, 2-Verbalize Understanding, 3- ImproveStrength/Ney 1=Demonstrate adherence to instructed precautions during ADL tasks. 2=Patient will verbalize/demonstrate understanding of assistive devices/modifications for ADL. 3=Patient will improve strength/tolerance for activity to enable patient to perform ADL's. JIM BOLANOS PT May 01, 2022 12:49
--- NOTE | 2022-05-01 14:40 | Therapy Team Discharge Summary ---
Therapy Discharge Summary Discharge Recommendations Date of Discharge Apr 29, 2022 at 11:00 Physical Therapy Roll Left to Right (QC): 6 Sit to Lying (QC): 6 Lying to Sitting/Side of Bed(Q: 6 Sit to Stand (QC): 6 Chair/Wnv-yc-Ikwty Xfer(QC): 6 Toilet Transfer (QC): 5 Car Transfer (QC): 6 Does the Patient Walk: Yes Mode of Locomotion: Walk Anticipated Mode of Locomotion: Walk Walk 10 feet (QC): 6 Walk 50 ft with 2 Turns(QC): 6 Walk 150 ft (QC): 6 Walking 10ft on uneven surface: 6 Distance: 120 feet Gait Assistive Device: FWW Does the Pt Use a Wheelchair: No Wheel 50 ft with 2 turns (QC): 9 Wheel 150 ft (QC): 9 #of Steps: 4 1 Step (curb) (QC): 4 4 Steps (QC): 4 12 Steps (QC): 88 Balance Sitting Static: Normal Balance Sitting Dynamic: Good Balance-Standing Static: Good Picking up an Object (QC): 6 Occupational Therapy Pt admitted to ARU s/p pelvic fx. At OF, pt was independent with ADLS and functional mobility without AD. Upon initial evaluation, pt was independent with eating, required set up with oral care and UE dressing, CGA showering, mod A LE dressing, max A footwear and min A toileting. OT Tx focused on increasing BUE strength and activity tolerance, and increasing safety and independence with ADLs and functional mobility. Pt made good progress towards goals, attaining all LTGs. Pt discharged from ARU, d/c from OT. Impaired Self-Care Skills Eating (QC): 6 Oral Hygiene (QC): 6 Shower/Bathe Self (QC): 6 Upper Body Dressing (QC): 6 Lower Body Dressing (QC): 6 On/Off Footwear (QC): 6 Toileting Hygiene (QC): 6 PT Utilization Review Specialist Goals Alf Goals PT Alf Goals Time Frame: May 06, 2022 Roll Left to Right (QC): 6 Sit to Lying (QC): 6 Lying-Sitting on Side/Bed(QC): 6 Sit to Stand (QC): 6 Chair/Ior-qa-Fqbzw Xfer(QC): 6 Toilet/Commode Transfer (QC): 6 Car Transfer (QC): 6 Does the Patient Walk: Yes Walk 10 feet (QC): 6 Walk 10ft-Uneven Surface(QC): 6 Walk 50ft with 2 Turns (QC): 6 Walk 150 ft (QC): 6 Does the Pt use WC or Scooter?: No Wheel 50 feet with 2 turns (QC: 9 Wheel 150 feet: 9 1 Step (curb) (QC): 4 4 Steps (QC): 3 12 Steps (QC): 9 Picking up an Object (QC): 6 OT Utilization Review Specialist Goals Utilization Review Specialist Goals Time Frame: May 06, 2022 Acute change in mental status: 0 Inattention: 0 Disorganized thinkin Altered level of consciousness: 0 Eating (QC): 6 (met) Oral Hygiene (QC): 6 (met) Toileting Hygiene (QC): 6 (met) Shower/Bathe Self (QC): 5 (With AE as needed. met) Upper Body Dressing (QC): 6 (met) Lower Body Dressing (QC): 6 (With AE as needed. met) On/Off Footwear (QC): 6 (With AE as needed. met) Additional Goals: 1-Demonstrate ADL Tasks, 2-Verbalize Understanding, 3-ImproveStrength/Ney 1=Demonstrate adherence to instructed precautions during ADL tasks. 2=Patient will verbalize/demonstrate understanding of assistive devices/modifications for ADL. 3=Patient will improve strength/tolerance for activity to enable patient to perform ADL's. CARMEL KUMAR OT May 01, 2022 14:40
== END 2022-04-29 11:00 | disposition home health service (06) | DRG 561 ==
PROVIDERS: ADMIT Internal Medicine; ATTEND Internal Medicine
DX: S32.591D Other specified fracture of right pubis, subsequent encounter for fracture with routine healing (principal); I48.91 Unspecified atrial fibrillation; I25.119 Atherosclerotic heart disease of native coronary artery with unspecified angina pectoris; E78.00 Pure hypercholesterolemia, unspecified; I10 Essential (primary) hypertension; G62.9 Polyneuropathy, unspecified; M81.0 Age-related osteoporosis without current pathological fracture; H91.93 Unspecified hearing loss, bilateral; K21.9 Gastro-esophageal reflux disease without esophagitis; R60.0 Localized edema; M19.91 Primary osteoarthritis, unspecified site; K58.9 Irritable bowel syndrome, unspecified; E53.8 Deficiency of other specified B group vitamins; E61.1 Iron deficiency; E04.1 Nontoxic single thyroid nodule; Z79.01 Long term (current) use of anticoagulants; Z95.5 Presence of coronary angioplasty implant and graft; Z95.0 Presence of cardiac pacemaker; Z95.2 Presence of prosthetic heart valve; Z79.82 Long term (current) use of aspirin; Z96.642 Presence of left artificial hip joint; Z88.1 Allergy status to other antibiotic agents; Z88.2 Allergy status to sulfonamides; Z88.8 Allergy status to other drugs, medicaments and biological substances; W19.XXXD Unspecified fall, subsequent encounter; Y92.009 Unspecified place in unspecified non-institutional (private) residence as the place of occurrence of the external cause
CPT/HCPCS: 36415; 80053; 82607; 83540; 85025